=== PATIENT | male | born 1975 | race Caucasian/White ===

== ENCOUNTER → 2016-10-10 | Outpatient (CLI) | payer OTHER ==
[~2016-10-10] MED LIST: /ONDA4TA OR; /TAMS4CA OR; COLA100C PO; CONRAY-43 43% 50ML VIAL (Q9960) As Ordered ONE; FISH1000 OR; FISH500C PO; GABA-283 PO; GINKGO BILOBA OR; HYDR25TAB PO; IBUP800T OR; KETO-28 OR; MELA1CAP2 PO; MOBI15TA PO; MULTIVIT PO; OMEP40CA2 PO; PERC5TAB8 OR; SUMA100T2 PO; ZOLO100T PO; [UNRECOGNIZED DRUG - OTHER] TOP
--- NOTE | 2016-10-10 10:09 | REP ---
MR ARTHROGRAM LEFT HIP: TECHNIQUE: Coronal T1, STIR through the pelvis, post arthrogram axial T1 fat sat, T2 fat sat, coronal T1 fat sat, T2 fat sat, sagittal T1 fat sat, axial oblique T1 fat sat left hip. There is no bone marrow edema of the visualized osseous structures and no evidence of occult fracture. There is no evidence of avascular necrosis. Tiny subchondral cyst is seen anteriorly in the left femoral head and also in the left lateral acetabulum. There is mild diffuse chondromalacia at the hip joint. There appears to be diffuse fraying of the superior labrum. I do not see a focal discrete labral tear. There is no paralabral cyst. There is a normal amount of joint fluid. Surrounding soft tissues are unremarkable. Visualized intrapelvic structures are unremarkable. IMPRESSION: Mild arthritic changes left hip joint. There appears to be diffuse fraying of the superior labrum. No other significant finding. Signed by Miguel Angel Young MD 10/10/2016 01:24 P
--- NOTE | 2016-10-10 13:26 | REP ---
Left hip arthrogram The procedure was performed under the direction supervision of Dr. Young. The benefits and risks including but not limited to pain, infection, bleeding and anaphylaxis were explained to the patient and informed consent was obtained. The left femoral neck was localized using fluoroscopic guidance. Skin was prepped and draped in a sterile fashion. 1% lidocaine was used as a local anesthetic. Using fluoroscopic guidance a 22 gauge spinal needle was inserted and advanced to the femoral neck. 0.5 ml of Conray 43 was injected to verify placement. 11 ml of a solution containing 20 ml of sterile saline and 0.15 ml of ProHance was injected into the joint. The needle was removed and the patient was taken to MRI for postprocedural imaging. The the patient tolerated the procedure well and there were no immediate complications. 2 seconds of fluoro time was utilized for this procedure. Reviewed by HILDA Cerrato 10/10/2016 08:49 ASigned by Miguel Angel Young MD 10/10/2016 01:15 P
== END ==
LOC: M RADPRO 07:01
PROVIDERS: ATTEND Physician Assistant
DX: M25.552 Pain in left hip (principal); M76.892 Other specified enthesopathies of left lower limb, excluding foot; M16.12 Unilateral primary osteoarthritis, left hip
CPT/HCPCS: 27093; 73723; 77002; A9576; Q9960

== ENCOUNTER → 2017-04-08 | Outpatient (CLI) | payer OTHER ==
[~2017-04-08] MED LIST changes: -COLA100C PO; +COLA100C5 PO; -CONRAY-43 43% 50ML VIAL (Q9960) As Ordered ONE
--- NOTE | 2017-04-09 00:22 | ECWPNPC ---
PATIENT NAME: ABRAM NG : 1975 GENDER: MALE VISIT DATE: 04/08/2017 DISCHARGE DATE: 04/08/17 1504 VISIT LOCKED DATE TIME: PHYSICIAN: FÉLIX JOHNS RESOURCE: FÉLIX JOHNS REASON FOR APPOINTMENT 1. CHRONIC PAIN- RECONSULT HISTORY OF PRESENT ILLNESS HISTORY OF PRESENT ILLNESS: 41 Y/O [employer] KNOWN TO OUR PRACTICE RETURNS WITH COMPLAINTS OF LBP R>L AND RIGHT POSTERIOR THIGH PAIN.HAD RIGHT L5/S1 TRANSFORAMINAL STEROID INJECTION ON 09-26-15.IN DECEMBER 2015 HAD L5/S1 DISCECTOMY WITH .REPORTS SOME IMPROVEMENT IN RIGHT FOOT THROBBING PAIN.RIGHT LOW BACK PAIN DIDNT CHANGE POST SURGERY.HAVING SAME RIGHT LOW BACK PAIN BEFORE SURGERY AND HAVING MORE FREQUENT EPISODES OF RIGHT LEG TINGLING.RATING PAIN VAS 4/10. PAIN THE PATIENT DESCRIBES THE PAIN... FALL RISK SCREENING: SCREENING :NO FALLS IN THE PAST YEAR CURRENT MEDICATIONS TAKING LOTREL 10-40 MG CAPSULE 1 CAPSULE ORALLY ONCE A DAY TAKING SUMATRIPTAN SUCCINATE 100 MG TABLET 1 TABLET NEEDED ONE TIME ORALLY ONCE A DAY TAKING TYLENOL 325 MG TABLET 1 TABLET NEEDED ORALLY EVERY 6 HRS PRN TAKING MULTI VITAMIN MENS TABLET DIRECTED ORALLY DAILY TAKING PROZAC 40 MG CAPSULE 1 CAPSULE IN THE MORNING ORALLY ONCE A DAY TAKING PRILOSEC 20 MG CAPSULE DELAYED RELEASE 1 CAPSULE ORALLY TWICE A DAY TAKING CETIRIZINE HCL 10 MG TABLET 1 TABLET ORALLY ONCE A DAY TAKING CHLORTHALIDONE 25 MG TABLET ONE HALF TABLET IN THE MORNING ORALLY ONCE A DAY TAKING TRAZODONE HCL 50 MG TABLET 1 TABLET AT BEDTIME NEEDED ORALLY ONCE A DAY TAKING LIPITOR 20 MG TABLET 1 TABLET ORALLY ONCE A DAY NOT-TAKING MOTRIN IB 200 MG TABLET 1 TABLET NEEDED ORALLY EVERY 6 HRS PRN NOT-TAKING DIURIL 12.5 TABLET 1 TABLET ORALLY ONCE A DAY NOT-TAKING COLACE 150 CAPSULE 1 CAP(S) ORALLY ONCE A DAY NOT-TAKING OMEPRAZOLE 40 MG CAPSULE DELAYED RELEASE 1 CAPSULE ORALLY ONCE A DAY NOT-TAKING GINKGO ? TABLET DIRECTED ORALLY NOT-TAKING GABAPENTIN 100 MG CAPSULE 2 CAP(S) ORALLY THREE TIMES DAILY MEDICATION LIST REVIEWED AND RECONCILED WITH THE PATIENT PAST MEDICAL HISTORY BACK PAIN KIDNEY STONES ACID REFLUX HYPERTENSION PTSD AND ANXIETY SEASONAL ALLERGIES HIGH CHOLESTEROL SLEEP APNEA WEARS CPAP MIGRAINES ALLERGIES N.K.D.A. SURGICAL HISTORY PRK CYSTOSCOPY, L URETEROSCOPY, LASER LITHOTRIPSY, STONE BASKETING 01/2012 RIGHT ESWL 01/26/14 MICRODISCECTOMY L5-S1 12/2015 REPAIR OF TORN LABRIUM RIGHT SHOULDER 04/2016 FAMILY HISTORY FATHER: MOTHER: ALIVE, HEART ATTACK, HTN, DIAGNOSED WITH DIABETES, HYPERTENSION, HEART DISEASE 1 SISTER(S) - HEALTHY. 1 SON(S) , 1 DAUGHTER(S) - HEALTHY. NO FAMILY HX OF BLADDER, KIDNEY OR PROSTATE CA. SOCIAL HISTORY GENERAL: TOBACCO USE ARE YOU A:NEVER SMOKER RECREATIONAL DRUG USE DENIES. CAFFEINE 1-2/DAY. 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 MARITAL STATUS: MARRIEDX 2CHILDREN. MORAVIAN [id number] MORMON LANGUAGE LANGUAGES SPOKEN:IRANIAN LEARNING BARRIERS / SPECIAL NEEDS BARRIERS TO LEARNING?NO HEARING IMPAIRED?NO VISION IMPAIRED?YES :CORRECTIVE LENSES COGNITIVELY IMPAIRED?NO READINESS TO LEARN?YES LEARNING PREFERENCES?NO LEARNING CAPABILITIES PRESENT?YES EMOTIONAL BARRIERS?NO SPECIAL DEVICES?NO ACUPUNCTURIST NEEDED?NO PAIN CLINIC PFS, CLERGY, PUBLIC HEALTH REFERRALS PFS REFERRAL NEEDED?NO CLERGY REFERRAL NEEDED?NO PUBLIC HEALTH REFERRAL NEEDED?NO HAS THE PATIENT BEEN EDUCATED REGARDING HIS/HER PLAN OF CARE?YES HAS THE PATIENT BEEN EDUCATED REGARDING PAIN, THE RISK FOR PAIN, THE IMPORTANCE OF EFFECTIVE PAIN MANAGEMENT, AND THE PAIN ASSESSMENT PROCESS?YES ADVANCE DIRECTIVES HEALTH CARE PROXY?NO WOULD YOU LIKE MORE INFORMATION?NO DO YOU HAVE A DNR?NO WOULD YOU LIKE MORE INFORMATION?NO LIVING WILL?NO WOULD YOU LIKE MORE INFORMATION?NO POWER OF SHOVEL LOADER OPERATOR?NO WOULD YOU LIKE MORE INFORMATION?NO HOSPITALIZATION/MAJOR DIAGNOSTIC PROCEDURE SURGERY RELATED REVIEW OF SYSTEMS REVIEWED BY: PROVIDER: FÉLIX ESTRADA . CONSTITUTIONAL: ANY CHANGE IN YOUR MEDICAL CONDITION? NO . CHILLS NO . FEVER NO . INFECTION: DO YOU HAVE NEW INFECTIONS? NO . DO YOU HAVE HISTORY OF MRSA? NO . MUSCULOSKELETAL: ANY NEW PATTERNS OF PAIN OR NUMBNESS? YES, INCREASED PAIN IN RIGHT LOW BACK AND TINGLING IN RIGHT POSTERIOR LEG AND FOOT . GASTROENTEROLOGY: ANY NEW CHANGE IN BOWEL CONTROL? NO . GENITOURINARY: ANY NEW CHANGE IN BLADDER CONTROL? NO . IS THERE A CHANCE YOU COULD BE ? NO . HEMATOLOGY/LYMPH: DO YOU TAKE ANY BLOOD THINNERS? (FOR EXAMPLE- COUMADIN, PLAVIX, AGGRENOX, PLATEL, PRADAXA, OR XARELTO) NO . WHEN WAS YOUR LAST DOSE? DATE: TIME: . NEUROLOGY: HAVE YOU FALLEN IN THE PAST 6 MONTHS? NO . ANY NEW EXTREMITY NUMBNESS OR WEAKNESS? NO . CARDIOLOGY: DO YOU HAVE A PACEMAKER OR DEFIBRILLATOR? NO . RESPIRATORY: HAVE YOU BEEN SICK IN THE PAST WEEK? NO . FEVER NO . FLU LIKE SYMPTOMS? NO . COUGH NO . INTEGUMENTARY: DO YOU HAVE ANY RASHES OR OPEN SORES? NO . ALLERGIC/IMMUNO: ARE YOU ALLERGIC TO SHELLFISH OR IV DYE? NO . ANY NEW ALLERGIES? NO . PSYCHIATRIC: DO YOU HAVE THOUGHTS OF HURTING YOURSELF OR SOMEONE ELSE? NO . ARE YOU ABUSED, NEGLECTED, OR IN AN UNSAFE ENVIRONMENT? NO . ENDOCRINOLOGY: ARE YOU DIABETIC? NO . OTHER: DO YOU NEED ANY PRESCRIPTIONS? NO . IF YES, PLEASE LIST: ____ . ANY NEW PROBLEMS WITH YOUR MEDICATIONS? NO . WHEN DID YOU LAST EAT? ____ . WHEN DID YOU LAST DRINK? ____ . WHAT DID YOU LAST DRINK? ____ . NAME OF PERSON DRIVING YOU HOME? ____ . DO YOU HAVE ANY OTHER QUESTIONS OR CONCERNS NO . VITAL SIGNS WT 192 LBS, HT 5'7", BMI 30.07 INDEX, BP 131/79 MM HG, HR 91 /MIN, RR 18 /MIN, TEMP 97.2 F, OXYGEN SAT % 96%, NA INITIALS SC 13:43, REVIEWED BY: OLIVER. EXAMINATION GENERAL EXAMINATION: GENERAL APPEARANCE:COMFORTABLE/PLEASANT. PSYCHAFFECT NORMAL. LUNGS:LUNG SOUNDS ARE CLEAR. HEART:HEART RATE REGULAR. MUSCULOSKELETAL:ELICITED WITH PALPATION OVER LUMBAR PARAVERTEBRAL MUSCLES RIGHT LOW BACK., MUSCLE STRENGTH TESTING 5/5 BLE. MRI L/S SPINE WITH AND WITHOUT [id number]-REVIEWED. ASSESSMENTS MYALGIA - M79.1 (PRIMARY) RIGHT HIP PAIN - M25.551 NEUROPATHY - G62.9 TREATMENT MYALGIA NOTES: RIGHT LOW BACK TPIPT 2X WK X 6 WK -MYOFASCIAL RELEASE. PREVENTIVE MEDICINE PT. EDUCATED ON POINT INJECTIONS. PROCEDURE CODES FA211 ESTABILISHED PATIENT [facility] FACILITY CHARGE DISPOSITION & COMMUNICATION FOLLOW UP 2WK POST (REASON: RIGHT LOW BACK TPI) ELECTRONICALLY SIGNED BY NATALIE HARVEY ON 04/08/2017 AT 04:19 PM EDT DISCLAIMER : THIS IS A VISIT SUMMARY EXTRACTED FROM THE [employer] CHART. IT IS NOT A COPY OF THE [facility] [employer] PROGRESS NOTE. VIOLETTE
== END ==
LOC: M PAIN 13:30
PROVIDERS: ATTEND Nurse Practitioner Family
DX: M79.1 Myalgia (principal); M25.551 Pain in right hip; G62.9 Polyneuropathy, unspecified; Z79.899 Other long term (current) drug therapy

== ENCOUNTER → 2017-04-30 | Outpatient (CLI) | payer OTHER ==
[~2017-04-30] MED LIST changes: +BUPIVACAINE HCL 0.25% 10 ML VIAL As Ordered ONE; +BUPIVACAINE HCL 0.25% 30 ML VIAL As Ordered ONE; +TRIAMCINOLONE ACETONIDE SUSP 40 MG/ML VIAL (J3301) As Ordered ONE
--- NOTE | 2017-05-12 00:15 | ECWPNPC ---
PATIENT NAME: ABRAM NG : 1975 GENDER: MALE VISIT DATE: 04/30/2017 DISCHARGE DATE: 04/30/17 1453 VISIT LOCKED DATE TIME: PHYSICIAN: KORIN WEBER RESOURCE: KORIN WEBER REASON FOR APPOINTMENT 1. RIGHT LOW BACK TPI HISTORY OF PRESENT ILLNESS HISTORY OF PRESENT ILLNESS: PAIN THE PATIENT DESCRIBES THE PAIN... FALL RISK SCREENING: SCREENING :NO FALLS IN THE PAST YEAR CURRENT MEDICATIONS TAKING LOTREL 10-40 MG CAPSULE 1 CAPSULE ORALLY ONCE A DAY, NOTES: 04-30-17 08 TAKING SUMATRIPTAN SUCCINATE 100 MG TABLET 1 TABLET NEEDED ONE TIME ORALLY ONCE A DAY, NOTES: NONE TAKING TYLENOL 325 MG TABLET 1 TABLET NEEDED ORALLY EVERY 6 HRS PRN, NOTES: NONE TAKING MULTI VITAMIN MENS TABLET DIRECTED ORALLY DAILY, NOTES: 04-30-17 0800 TAKING PROZAC 40 MG CAPSULE 1 CAPSULE IN THE MORNING ORALLY ONCE A DAY, NOTES: 04-30-17 08 TAKING PRILOSEC 20 MG CAPSULE DELAYED RELEASE 1 CAPSULE ORALLY TWICE A DAY, NOTES: 799 TAKING CETIRIZINE HCL 10 MG TABLET 1 TABLET ORALLY ONCE A DAY, NOTES: 04-30-17 08 TAKING CHLORTHALIDONE 25 MG TABLET ONE HALF TABLET IN THE MORNING ORALLY ONCE A DAY, NOTES: 04-30-17 08 TAKING TRAZODONE HCL 50 MG TABLET 1 TABLET AT BEDTIME NEEDED ORALLY ONCE A DAY, NOTES: 04-29-17 2100 TAKING LIPITOR 20 MG TABLET 1 TABLET ORALLY ONCE A DAY, NOTES: 04-30-17 0800 NOT-TAKING MOTRIN IB 200 MG TABLET 1 TABLET NEEDED ORALLY EVERY 6 HRS PRN NOT-TAKING DIURIL 12.5 TABLET 1 TABLET ORALLY ONCE A DAY NOT-TAKING COLACE 150 CAPSULE 1 CAP(S) ORALLY ONCE A DAY NOT-TAKING OMEPRAZOLE 40 MG CAPSULE DELAYED RELEASE 1 CAPSULE ORALLY ONCE A DAY NOT-TAKING GINKGO ? TABLET DIRECTED ORALLY NOT-TAKING GABAPENTIN 100 MG CAPSULE 2 CAP(S) ORALLY THREE TIMES DAILY MEDICATION LIST REVIEWED AND RECONCILED WITH THE PATIENT PAST MEDICAL HISTORY BACK PAIN KIDNEY STONES ACID REFLUX HYPERTENSION PTSD AND ANXIETY SEASONAL ALLERGIES HIGH CHOLESTEROL SLEEP APNEA WEARS CPAP MIGRAINES ALLERGIES N.K.D.A. SOCIAL HISTORY GENERAL: TOBACCO USE ARE YOU A:: NEVER SMOKER . RECREATIONAL DRUG USE DENIES. CAFFEINE 1-2/DAY. 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 MARITAL STATUS: MARRIEDX 2CHILDREN. RESTORATION [id number] EPISCOPAL LANGUAGE LANGUAGES SPOKEN:YORUBA LEARNING BARRIERS / SPECIAL NEEDS BARRIERS TO LEARNING?NO HEARING IMPAIRED?NO VISION IMPAIRED?YES :CORRECTIVE LENSES COGNITIVELY IMPAIRED?NO READINESS TO LEARN?YES LEARNING PREFERENCES?NO LEARNING CAPABILITIES PRESENT?YES EMOTIONAL BARRIERS?NO SPECIAL DEVICES?NO PAINT LINE PRODUCTION SUPERVISOR NEEDED?NO PAIN CLINIC PFS, CLERGY, PUBLIC HEALTH REFERRALS PFS REFERRAL NEEDED?NO CLERGY REFERRAL NEEDED?NO PUBLIC HEALTH REFERRAL NEEDED?NO HAS THE PATIENT BEEN EDUCATED REGARDING HIS/HER PLAN OF CARE?YES HAS THE PATIENT BEEN EDUCATED REGARDING PAIN, THE RISK FOR PAIN, THE IMPORTANCE OF EFFECTIVE PAIN MANAGEMENT, AND THE PAIN ASSESSMENT PROCESS?YES ADVANCE DIRECTIVES HEALTH CARE PROXY?NO WOULD YOU LIKE MORE INFORMATION?NO DO YOU HAVE A DNR?NO WOULD YOU LIKE MORE INFORMATION?NO LIVING WILL?NO WOULD YOU LIKE MORE INFORMATION?NO POWER OF FREELANCE DESIGNER?NO WOULD YOU LIKE MORE INFORMATION?NO REVIEW OF SYSTEMS REVIEWED BY: PROVIDER: . CONSTITUTIONAL: ANY CHANGE IN YOUR MEDICAL CONDITION? NO . CHILLS NO . FEVER NO . INFECTION: DO YOU HAVE NEW INFECTIONS? NO . DO YOU HAVE HISTORY OF MRSA? NO . MUSCULOSKELETAL: ANY NEW PATTERNS OF PAIN OR NUMBNESS? YES, TINGLING IN RIGHT FOOT IS MORE PRONOUNCED . GASTROENTEROLOGY: ANY NEW CHANGE IN BOWEL CONTROL? NO . GENITOURINARY: ANY NEW CHANGE IN BLADDER CONTROL? NO . IS THERE A CHANCE YOU COULD BE ? NO . HEMATOLOGY/LYMPH: DO YOU TAKE ANY BLOOD THINNERS? (FOR EXAMPLE- COUMADIN, PLAVIX, AGGRENOX, PLATEL, PRADAXA, OR XARELTO) NO . WHEN WAS YOUR LAST DOSE? DATE: TIME: . NEUROLOGY: HAVE YOU FALLEN IN THE PAST 6 MONTHS? NO . ANY NEW EXTREMITY NUMBNESS OR WEAKNESS? NO . CARDIOLOGY: DO YOU HAVE A PACEMAKER OR DEFIBRILLATOR? NO . RESPIRATORY: HAVE YOU BEEN SICK IN THE PAST WEEK? NO . FEVER NO . FLU LIKE SYMPTOMS? NO . COUGH NO . INTEGUMENTARY: DO YOU HAVE ANY RASHES OR OPEN SORES? NO . ALLERGIC/IMMUNO: ARE YOU ALLERGIC TO SHELLFISH OR IV DYE? NO . ANY NEW ALLERGIES? NO . PSYCHIATRIC: DO YOU HAVE THOUGHTS OF HURTING YOURSELF OR SOMEONE ELSE? NO . ARE YOU ABUSED, NEGLECTED, OR IN AN UNSAFE ENVIRONMENT? NO . ENDOCRINOLOGY: ARE YOU DIABETIC? NO . OTHER: DO YOU NEED ANY PRESCRIPTIONS? NO . IF YES, PLEASE LIST: ____ . ANY NEW PROBLEMS WITH YOUR MEDICATIONS? NO . WHEN DID YOU LAST EAT? 04-30-17 0900 . WHEN DID YOU LAST DRINK? 04-30-17 1100 . WHAT DID YOU LAST DRINK? WATER . NAME OF PERSON DRIVING YOU HOME? JEN . DO YOU HAVE ANY OTHER QUESTIONS OR CONCERNS NO . VITAL SIGNS WT 191 LBS, HT 5'7", BMI 29.91 INDEX, BP 121/76 MM HG, HR 82 /MIN, RR 18 /MIN, TEMP 97.1 F, OXYGEN SAT % 96%, NA INITIALS SC 13:56, REVIEWED BY: CM. ASSESSMENTS MYALGIA - M79.1 (PRIMARY) PROCEDURES PN TRIGGER POINT INJECTION WITH STEROIDS PRE PROCEDURE DIAGNOSIS 1. MYALGIA 2. PAIN AT RIGHT LOWER BACK AREA POST PROCEDURE DIAGNOSIS 1. MYALGIA 2. PAIN AT RIGHT LOWER BACK AREA PROCEDURE TRIGGER POINT INJECTION AT RIGHT LOWER BACK AREA SURGEON DR. KORIN WEBER SENIOR RELIABILITY ENGINEER NONE ANESTHESIA LOCAL PRE PROCEDURE NOTE THE PATIENT HAS A HISTORY OF CHRONIC PAIN AT THE RIGHT LOWER BACK AREA. I EVALUATE THE PATIENT AND REVIEWED THE CHART. THERE IS EVIDENCE OF BANDS OF TISSUE WITH RESTRICTION OF MOVEMENT AND PRESENCE OF TRIGGER POINT AT THE AFFECTED AREA. I WENT OVER THE RISKS, ALTERNATIVES, AND BENEFITS ASSOCIATED WITH THIS PROCEDURE. THE PATIENT WOULD LIKE TO PROCEED AND GIVE CONSENT TO PERFORMED THE PROCEDURE. THE PATIENT DENIES UNEXPLAINABLE WEIGHT LOSS, FEVER, CHILLS, OR NEW CHANGES IN URINARY OR BOWEL CONTROL DESCRIPTION OF PROCEDURE THE PATIENT WAS BROUGHT TO THE PROCEDURE ROOM AND PLACED IN THE SITTING POSITION. THE AREA WAS CLEANED WITH ALCOHOL. THE PROCEDURE WAS DONE USING ASEPTIC STERILE TECHNIQUE. I CHECKED LATERALITY AND THE LEVEL WHERE THE PROCEDURE WAS GOING TO BE PERFORMED WITH THE PATIENT AND THE SUPPORTING STAFF AT THE MOMENT OF THE TIME OUT IN THE PROCEDURE ROOM. USING A 25-GAUGE NEEDLE, TRIGGER POINTS WERE INJECTED AT THE RIGHT LOWER BACK AREA WITH A TOTAL OF 40 ML OF BUPIVACAINE 0.25% AND KENALOG 40 MG. THERE WAS NO EVIDENCE OF BLOOD, PARESTHESIA OR CEREBROSPINAL FLUID DURING THE PROCEDURE. THE PATIENT WAS SENT TO THE RECOVERY ROOM. THE PATIENT WAS MOVING THE EXTREMITIES AND DOING WELL. THERE WAS NO COMPLICATION DURING THE PROCEDURE POST PROCEDURE NOTE THE PATIENT WILL BE SEEN IN A FOLLOW UP IN THE NEXT FEW WEEKS. INSTRUCTIONS WERE GIVEN, QUESTIONS WERE ANSWERED, AND THE PATIENT EXPRESSED UNDERSTANDING AND AGREES WITH THE PLAN. I, DENNY BELTRAN, DOCUMENTED THE ABOVE INFORMATION ACTING A SCRIBE FOR DR. WEBER. I HAVE REVIEWED THE ABOVE DOCUMENT, WRITTEN BY DENNY DOMINIQUE AND I VERIFY THAT IT IS ACCURATE PROCEDURE CODES 47697 INJ TRIGGER POINT / MUSC DISPOSITION & COMMUNICATION FOLLOW UP 3 WEEKS ELECTRONICALLY SIGNED BY KORIN WEBER MD ON 05/11/2017 AT 10:43 AM EDT DISCLAIMER : THIS IS A VISIT SUMMARY EXTRACTED FROM THE [employer] CHART. IT IS NOT A COPY OF THE [employer] PROGRESS NOTE. VIOLETTE
== END ==
LOC: M PAIN 13:45
PROVIDERS: ATTEND Anesthesiology
DX: G89.29 Other chronic pain (principal); M54.5 Low back pain; M79.1 Myalgia; K21.9 Gastro-esophageal reflux disease without esophagitis; I10 Essential (primary) hypertension; F43.10 Post-traumatic stress disorder, unspecified; F41.9 Anxiety disorder, unspecified; J30.2 Other seasonal allergic rhinitis; G47.30 Sleep apnea, unspecified; G43.909 Migraine, unspecified, not intractable, without status migrainosus; Z79.899 Other long term (current) drug therapy
CPT/HCPCS: 20552; J3301

== ENCOUNTER → 2017-06-09 | Outpatient (CLI) | payer OTHER ==
--- NOTE | 2017-06-16 01:13 | ECWPNPC ---
PATIENT NAME: ABRAM NG : 1975 GENDER: MALE VISIT DATE: 06/09/2017 DISCHARGE DATE: 06/09/17 1513 VISIT LOCKED DATE TIME: PHYSICIAN: KORIN WEBER RESOURCE: KORIN WEBER HISTORY OF PRESENT ILLNESS HISTORY OF PRESENT ILLNESS: PAIN THE PATIENT DESCRIBES THE PAIN... FALL RISK SCREENING: SCREENING :NO FALLS IN THE PAST YEAR CURRENT MEDICATIONS TAKING LOTREL 10-40 MG CAPSULE 1 CAPSULE ORALLY ONCE A DAY, NOTES: 06/09/17 0600 TAKING SUMATRIPTAN SUCCINATE 100 MG TABLET 1 TABLET NEEDED ONE TIME ORALLY ONCE A DAY, NOTES: 1 WEEK AGO TAKING TYLENOL 325 MG TABLET 1 TABLET NEEDED ORALLY EVERY 6 HRS PRN, NOTES: 1 WEEK AGO TAKING MULTI VITAMIN MENS TABLET DIRECTED ORALLY DAILY, NOTES: 06/09/17 06 TAKING PROZAC 40 MG CAPSULE 1 CAPSULE IN THE MORNING ORALLY ONCE A DAY, NOTES: 06/09/17 06 TAKING PRILOSEC 20 MG CAPSULE DELAYED RELEASE 1 CAPSULE ORALLY TWICE A DAY, NOTES: 06/09/17 06 TAKING CETIRIZINE HCL 10 MG TABLET 1 TABLET ORALLY ONCE A DAY, NOTES: 06/09/17 06 TAKING CHLORTHALIDONE 25 MG TABLET ONE HALF TABLET IN THE MORNING ORALLY ONCE A DAY, NOTES: 06/09/17 06 TAKING TRAZODONE HCL 50 MG TABLET 1 TABLET AT BEDTIME NEEDED ORALLY ONCE A DAY, NOTES: 06/08/17 9PM TAKING LIPITOR 20 MG TABLET 1 TABLET ORALLY ONCE A DAY, NOTES: 06/09/17 0600 NOT-TAKING MOTRIN IB 200 MG TABLET 1 TABLET NEEDED ORALLY EVERY 6 HRS PRN NOT-TAKING DIURIL 12.5 TABLET 1 TABLET ORALLY ONCE A DAY NOT-TAKING COLACE 150 CAPSULE 1 CAP(S) ORALLY ONCE A DAY NOT-TAKING OMEPRAZOLE 40 MG CAPSULE DELAYED RELEASE 1 CAPSULE ORALLY ONCE A DAY NOT-TAKING GINKGO ? TABLET DIRECTED ORALLY NOT-TAKING GABAPENTIN 100 MG CAPSULE 2 CAP(S) ORALLY THREE TIMES DAILY MEDICATION LIST REVIEWED AND RECONCILED WITH THE PATIENT PAST MEDICAL HISTORY BACK PAIN KIDNEY STONES ACID REFLUX HYPERTENSION PTSD AND ANXIETY SEASONAL ALLERGIES HIGH CHOLESTEROL SLEEP APNEA WEARS CPAP MIGRAINES ALLERGIES NO[ALLERGIES VERIFIED] SURGICAL HISTORY PRK CYSTOSCOPY, L URETEROSCOPY, LASER LITHOTRIPSY, STONE BASKETING 01/2012 RIGHT ESWL 01/26/14 MICRODISCECTOMY L5-S1 12/2015 REPAIR OF TORN LABRIUM RIGHT SHOULDER 04/2016 SOCIAL HISTORY GENERAL: TOBACCO USE ARE YOU A:: NEVER SMOKER . RECREATIONAL DRUG USE DENIES. CAFFEINE 1-2/DAY. 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 MARITAL STATUS: MARRIEDX 2CHILDREN. RASTAFARI [id number] YARSANI LANGUAGE LANGUAGES SPOKEN:PUERTO RICAN LEARNING BARRIERS / SPECIAL NEEDS CHANGE FROM LAST VISIT?NO BARRIERS TO LEARNING?NO HEARING IMPAIRED?NO VISION IMPAIRED?YES :CORRECTIVE LENSES COGNITIVELY IMPAIRED?NO READINESS TO LEARN?YES LEARNING PREFERENCES?NO LEARNING CAPABILITIES PRESENT?YES EMOTIONAL BARRIERS?NO SPECIAL DEVICES?NO CLIN APPLICATION SPECIALIST NEEDED?NO PAIN CLINIC PFS, CLERGY, PUBLIC HEALTH REFERRALS PFS REFERRAL NEEDED?NO CLERGY REFERRAL NEEDED?NO PUBLIC HEALTH REFERRAL NEEDED?NO HAS THE PATIENT BEEN EDUCATED REGARDING HIS/HER PLAN OF CARE?YES HAS THE PATIENT BEEN EDUCATED REGARDING PAIN, THE RISK FOR PAIN, THE IMPORTANCE OF EFFECTIVE PAIN MANAGEMENT, AND THE PAIN ASSESSMENT PROCESS?YES ADVANCE DIRECTIVES HEALTH CARE PROXY?NO WOULD YOU LIKE MORE INFORMATION?NO DO YOU HAVE A DNR?NO WOULD YOU LIKE MORE INFORMATION?NO LIVING WILL?NO WOULD YOU LIKE MORE INFORMATION?NO POWER OF DEALMAKER?NO WOULD YOU LIKE MORE INFORMATION?NO HOSPITALIZATION/MAJOR DIAGNOSTIC PROCEDURE SURGERY RELATED REVIEW OF SYSTEMS REVIEWED BY: PROVIDER: . CONSTITUTIONAL: ANY CHANGE IN YOUR MEDICAL CONDITION? NO . CHILLS NO . FEVER NO . INFECTION: DO YOU HAVE NEW INFECTIONS? NO . DO YOU HAVE HISTORY OF MRSA? NO . MUSCULOSKELETAL: ANY NEW PATTERNS OF PAIN OR NUMBNESS? NO . GASTROENTEROLOGY: ANY NEW CHANGE IN BOWEL CONTROL? NO . GENITOURINARY: ANY NEW CHANGE IN BLADDER CONTROL? NO . IS THERE A CHANCE YOU COULD BE ? NO . HEMATOLOGY/LYMPH: DO YOU TAKE ANY BLOOD THINNERS? (FOR EXAMPLE- COUMADIN, PLAVIX, AGGRENOX, PLATEL, PRADAXA, OR XARELTO) NO . WHEN WAS YOUR LAST DOSE? DATE: TIME: . NEUROLOGY: HAVE YOU FALLEN IN THE PAST 6 MONTHS? NO . ANY NEW EXTREMITY NUMBNESS OR WEAKNESS? NO . CARDIOLOGY: DO YOU HAVE A PACEMAKER OR DEFIBRILLATOR? NO . RESPIRATORY: HAVE YOU BEEN SICK IN THE PAST WEEK? NO . FEVER NO . FLU LIKE SYMPTOMS? NO . COUGH NO . INTEGUMENTARY: DO YOU HAVE ANY RASHES OR OPEN SORES? NO . ALLERGIC/IMMUNO: ARE YOU ALLERGIC TO SHELLFISH OR IV DYE? NO . ANY NEW ALLERGIES? NO . PSYCHIATRIC: DO YOU HAVE THOUGHTS OF HURTING YOURSELF OR SOMEONE ELSE? NO . ARE YOU ABUSED, NEGLECTED, OR IN AN UNSAFE ENVIRONMENT? NO . ENDOCRINOLOGY: ARE YOU DIABETIC? NO . OTHER: DO YOU NEED ANY PRESCRIPTIONS? NO . IF YES, PLEASE LIST: ____ . ANY NEW PROBLEMS WITH YOUR MEDICATIONS? NO . WHEN DID YOU LAST EAT? 530AM . WHEN DID YOU LAST DRINK? 1000 AM . WHAT DID YOU LAST DRINK? WATER . NAME OF PERSON DRIVING YOU HOME? JEN . DO YOU HAVE ANY OTHER QUESTIONS OR CONCERNS NO . VITAL SIGNS WT 190 LBS, HT 5'7", BMI 29.75 INDEX, BP 129/82 MM HG, HR 85 /MIN, RR 16 /MIN, TEMP 97.8 F, OXYGEN SAT % 96%, NA INITIALS SC 13:42, REVIEWED BY: NL. ASSESSMENTS MYALGIA - M79.1 (PRIMARY) PROCEDURES PN TRIGGER POINT INJECTION WITH STEROIDS PRE PROCEDURE DIAGNOSIS 1. MYALGIA 2. PAIN AT RIGHT LOWER BACK AREA POST PROCEDURE DIAGNOSIS 1. MYALGIA 2. PAIN AT RIGHT LOWER BACK AREA PROCEDURE TRIGGER POINT INJECTION AT RIGHT LOWER BACK AREA SURGEON DR. KORIN WEBER INSULATION TECHNICIAN NONE ANESTHESIA LOCAL PRE PROCEDURE NOTE THE PATIENT HAS A HISTORY OF CHRONIC PAIN AT THE RIGHT LOWER BACK AREA. I EVALUATE THE PATIENT AND REVIEWED THE CHART. THERE IS EVIDENCE OF BANDS OF TISSUE WITH RESTRICTION OF MOVEMENT AND PRESENCE OF TRIGGER POINT AT THE AFFECTED AREA. I WENT OVER THE RISKS, ALTERNATIVES, AND BENEFITS ASSOCIATED WITH THIS PROCEDURE. THE PATIENT WOULD LIKE TO PROCEED AND GIVE CONSENT TO PERFORMED THE PROCEDURE. THE PATIENT DENIES UNEXPLAINABLE WEIGHT LOSS, FEVER, CHILLS, OR NEW CHANGES IN URINARY OR BOWEL CONTROL DESCRIPTION OF PROCEDURE THE PATIENT WAS BROUGHT TO THE PROCEDURE ROOM AND PLACED IN THE SITTING POSITION. THE AREA WAS CLEANED WITH ALCOHOL. THE PROCEDURE WAS DONE USING ASEPTIC STERILE TECHNIQUE. I CHECKED LATERALITY AND THE LEVEL WHERE THE PROCEDURE WAS GOING TO BE PERFORMED WITH THE PATIENT AND THE SUPPORTING STAFF AT THE MOMENT OF THE TIME OUT IN THE PROCEDURE ROOM. USING A 25-GAUGE NEEDLE, TRIGGER POINTS WERE INJECTED AT THE RIGHT LOWER BACK AREA WITH A TOTAL OF 40 ML OF BUPIVACAINE 0.25% AND KENALOG 40 MG. THERE WAS NO EVIDENCE OF BLOOD, PARESTHESIA OR CEREBROSPINAL FLUID DURING THE PROCEDURE. THE PATIENT WAS SENT TO THE RECOVERY ROOM. THE PATIENT WAS MOVING THE EXTREMITIES AND DOING WELL. THERE WAS NO COMPLICATION DURING THE PROCEDURE POST PROCEDURE NOTE THE PATIENT WILL BE SEEN IN A FOLLOW UP IN THE NEXT FEW WEEKS. INSTRUCTIONS WERE GIVEN, QUESTIONS WERE ANSWERED, AND THE PATIENT EXPRESSED UNDERSTANDING AND AGREES WITH THE PLAN. I, DENNY BELTRAN, DOCUMENTED THE ABOVE INFORMATION ACTING A SCRIBE FOR DR. WEBER. I HAVE REVIEWED THE ABOVE DOCUMENT, WRITTEN BY DENNY SINIBNatacha AND I VERIFY THAT IT IS ACCURATE PROCEDURE CODES 40581 INJ TRIGGER POINT / MUSC DISPOSITION & COMMUNICATION FOLLOW UP 3 WEEKS ELECTRONICALLY SIGNED BY KORIN WEBER MD ON 06/15/2017 AT 02:21 PM EST DISCLAIMER : THIS IS A VISIT SUMMARY EXTRACTED FROM THE [employer] CHART. IT IS NOT A COPY OF THE [employer] PROGRESS NOTE. VIOLETTE
== END ==
LOC: M PAIN 13:30
PROVIDERS: ATTEND Anesthesiology
DX: G89.29 Other chronic pain (principal); M54.5 Low back pain; M79.1 Myalgia; K21.9 Gastro-esophageal reflux disease without esophagitis; I10 Essential (primary) hypertension; F43.10 Post-traumatic stress disorder, unspecified; F41.9 Anxiety disorder, unspecified; J30.2 Other seasonal allergic rhinitis; E78.00 Pure hypercholesterolemia, unspecified; G47.30 Sleep apnea, unspecified; G43.909 Migraine, unspecified, not intractable, without status migrainosus; Z79.899 Other long term (current) drug therapy
CPT/HCPCS: 20552; J3301

== ENCOUNTER → 2017-08-26 | Outpatient (CLI) | payer OTHER | LOC: M PAIN 09:15 | DX: M25.551 Pain in right hip (principal); G62.9 Polyneuropathy, unspecified; M79.1 Myalgia; K21.9 Gastro-esophageal reflux disease without esophagitis; I10 Essential (primary) hypertension; F43.10 Post-traumatic stress disorder, unspecified; F41.9 Anxiety disorder, unspecified; J30.2 Other seasonal allergic rhinitis; E78.00 Pure hypercholesterolemia, unspecified; G47.30 Sleep apnea, unspecified; G43.909 Migraine, unspecified, not intractable, without status migrainosus; Z79.899 Other long term (current) drug therapy | CPT/HCPCS: G0463 ==

== ENCOUNTER → 2017-10-09 | Outpatient (CLI) | payer OTHER ==
[~2017-10-09] MED LIST changes: -/ONDA4TA OR; -/TAMS4CA OR; +BUPIVACAINE HCL 0.25% 10 ML VIAL As Ordered; -BUPIVACAINE HCL 0.25% 10 ML VIAL As Ordered ONE; +BUPIVACAINE HCL 0.25% 30 ML VIAL As Ordered; -BUPIVACAINE HCL 0.25% 30 ML VIAL As Ordered ONE; -COLA100C5 PO; -FISH1000 OR; -FISH500C PO; -GABA-283 PO; -GINKGO BILOBA OR; -HYDR25TAB PO; -IBUP800T OR; -KETO-28 OR; -MELA1CAP2 PO; -MOBI15TA PO; -MULTIVIT PO; -OMEP40CA2 PO; -PERC5TAB8 OR; -SUMA100T2 PO; +TRIAMCINOLONE ACETONIDE SUSP 40 MG/ML VIAL (J3301) As Ordered; -TRIAMCINOLONE ACETONIDE SUSP 40 MG/ML VIAL (J3301) As Ordered ONE; -ZOLO100T PO; -[UNRECOGNIZED DRUG - OTHER] TOP
== END ==
LOC: M PAIN 13:15
DX: G89.29 Other chronic pain (principal); M54.5 Low back pain; M79.1 Myalgia; K21.9 Gastro-esophageal reflux disease without esophagitis; I10 Essential (primary) hypertension; F43.10 Post-traumatic stress disorder, unspecified; F41.9 Anxiety disorder, unspecified; J30.2 Other seasonal allergic rhinitis; E78.00 Pure hypercholesterolemia, unspecified; G47.30 Sleep apnea, unspecified; G43.909 Migraine, unspecified, not intractable, without status migrainosus; Z79.899 Other long term (current) drug therapy
CPT/HCPCS: J3301

== ENCOUNTER → 2017-10-29 | Outpatient (CLI) | payer OTHER | LOC: M PAIN 09:45 | DX: G89.29 Other chronic pain (principal); M96.1 Postlaminectomy syndrome, not elsewhere classified; M79.1 Myalgia; M54.17 Radiculopathy, lumbosacral region; K21.9 Gastro-esophageal reflux disease without esophagitis; I10 Essential (primary) hypertension; F43.10 Post-traumatic stress disorder, unspecified; F41.9 Anxiety disorder, unspecified; J30.2 Other seasonal allergic rhinitis; E78.00 Pure hypercholesterolemia, unspecified; G47.30 Sleep apnea, unspecified; G43.909 Migraine, unspecified, not intractable, without status migrainosus; Z79.899 Other long term (current) drug therapy | CPT/HCPCS: G0463 ==

== ENCOUNTER → 2017-11-03 | Outpatient (REF) | payer OTHER ==
[2017-11-03 13:21] LABS: APPEARANCE, URINE CLEAR (CLEAR); BACTERIA, URINE AUTO NEGATIVE (NEGATIVE); BILIRUBIN, URINE AUTO NEGATIVE (NEGATIVE); BLOOD, URINE BLOOD NEGATIVE (NEGATIVE); COLOR, URINE COLORLESS (YELLOW); GLUCOSE, URINE (UA) AUTO NEGATIVE (NEGATIVE); KETONE, URINE AUTO NEGATIVE (NEGATIVE); LEUKOCYTE ESTERASE, URINE AUTO NEGATIVE (NEGATIVE); NITRITE, URINE AUTO NEGATIVE (NEGATIVE); PROTEIN, URINE AUTO NEGATIVE (NEGATIVE); RBC, URINE AUTO 0 /HPF (0-3); SPECIFIC GRAVITY URINE AUTO 1.002 (1.002-1.035); SQUAMOUS EPITHELIAL CELL UR AU 0 /HPF (0-6); UROBILINOGEN, URINE AUTO 0.2 mg/dL (0.0-2.0); WBC, URINE AUTO 0 /HPF (0-3)
== END ==
LOC: M SMT 13:00
DX: N20.0 Calculus of kidney (principal)
CPT/HCPCS: 81001

== ENCOUNTER → 2017-11-10 | Outpatient (CLI) | payer OTHER | LOC: M RAD 07:01 | DX: N20.0 Calculus of kidney (principal) | CPT/HCPCS: 74176 ==

== ENCOUNTER → 2018-01-28 | Outpatient (CLI) | payer OTHER ==
[~2018-01-28] MED LIST changes: -BUPIVACAINE HCL 0.25% 10 ML VIAL As Ordered; +ISOVUE-M 300 61% 15ML VIAL (Q9967) As Ordered; +LIDOCAINE 1% SDV INJ 30 ML VIAL As Ordered; -TRIAMCINOLONE ACETONIDE SUSP 40 MG/ML VIAL (J3301) As Ordered; +dexameTHASONE 10 MG/1 ML VIAL PRES.FREE (J1100) As Ordered; +diazePAM 5 MG TAB As Ordered; +oxyCODONE 5MG TAB As Ordered
== END ==
LOC: M PAIN 13:00
DX: G89.29 Other chronic pain (principal); M51.17 Intervertebral disc disorders with radiculopathy, lumbosacral region; K21.9 Gastro-esophageal reflux disease without esophagitis; I10 Essential (primary) hypertension; F43.10 Post-traumatic stress disorder, unspecified; F41.9 Anxiety disorder, unspecified; J30.2 Other seasonal allergic rhinitis; E78.00 Pure hypercholesterolemia, unspecified; G47.30 Sleep apnea, unspecified; G43.909 Migraine, unspecified, not intractable, without status migrainosus; Z79.899 Other long term (current) drug therapy
CPT/HCPCS: J1100

== ENCOUNTER → 2018-02-23 | Outpatient (CLI) | payer OTHER | LOC: M PAIN 10:15 | DX: M96.1 Postlaminectomy syndrome, not elsewhere classified (principal); M79.1 Myalgia; M54.17 Radiculopathy, lumbosacral region; K21.9 Gastro-esophageal reflux disease without esophagitis; I10 Essential (primary) hypertension; F43.10 Post-traumatic stress disorder, unspecified; F41.9 Anxiety disorder, unspecified; J30.2 Other seasonal allergic rhinitis; E78.00 Pure hypercholesterolemia, unspecified; G47.30 Sleep apnea, unspecified; G43.909 Migraine, unspecified, not intractable, without status migrainosus; Z79.899 Other long term (current) drug therapy | CPT/HCPCS: G0463 ==

== ENCOUNTER 2018-09-29 10:48 | Emergency (ER) | payer OTHER ==
[~2018-09-29] VITALS: Ht 170.2 cm; Wt 86.8 kg
[~2018-09-29 10:48] MED LIST changes: +/ONDA4TA OR; +/TAMS4CA OR; -BUPIVACAINE HCL 0.25% 30 ML VIAL As Ordered; +COLA100C5 PO; +FISH1000 OR; +FISH500C PO; +GABA-845 PO; +GINKGO BILOBA OR; +HYDR25TAB PO; +IBUP800T OR; -ISOVUE-M 300 61% 15ML VIAL (Q9967) As Ordered; +KETO-28 OR; -LIDOCAINE 1% SDV INJ 30 ML VIAL As Ordered; +MELA1CAP2 PO; +MOBI15TA PO; +MULTIVIT PO; +OMEP40CA2 PO; +PERC5TAB8 OR; +SUMA100T2 PO; +ZOLO100T PO; +[UNRECOGNIZED DRUG - OTHER] TOP; -dexameTHASONE 10 MG/1 ML VIAL PRES.FREE (J1100) As Ordered; -diazePAM 5 MG TAB As Ordered; -oxyCODONE 5MG TAB As Ordered
[2018-09-29] MEDS ORDERED: TRAZ-160 (11:21)
[2018-09-29] MEDS ORDERED: FLUO40CA (11:21)
[2018-09-29] MEDS ORDERED: LOTR10CA2 PO (11:21)
[2018-09-29] MEDS ORDERED: CHLO125TA (11:21)
[2018-09-29] MEDS ORDERED: ATOR1TAB21 (11:21)
[2018-09-29] MEDS ORDERED: FAMOTIDINE IV BAG 20 MG in APPROPRIATE DILUENT 1 EA IV ONE (12:30)
[2018-09-29] MEDS ORDERED: methylPREDNISolone INJ 125 MG/2 ML VIAL (J2930) IV ONE (12:30)
[2018-09-29 14:48] VITALS: BP 113/70
== END 2018-09-29 14:50 | disposition home or self-care (01) ==
LOC: M ED 10:48
DX: T78.40XA Allergy, unspecified, initial encounter (principal); Y92.89 Other specified places as the place of occurrence of the external cause; Y93.89 Activity, other specified; I10 Essential (primary) hypertension; Z87.442 Personal history of urinary calculi; Z79.899 Other long term (current) drug therapy
CPT/HCPCS: 99284; J2930

== ENCOUNTER → 2019-01-14 | Outpatient (REF) | payer OTHER ==
[~2019-01-14] MED LIST changes: -/ONDA4TA OR; -/TAMS4CA OR; +ATOR1TAB21; +CHLO125TA; +FLOM0.4C39 OR; +FLUO40CA; +HYDR-2541 PO; -HYDR25TAB PO; +LOTR10CA2 PO; +ONDA-1 OR; +TRAZ-252
[2019-01-14 12:14] LABS: ALT/SGPT 38 U/L (12-78); BILIRUBIN,TOTAL 0.5 MG/DL (0.2-1.0); BLOOD UREA NITROGEN 18 MG/DL (7-18); CALCIUM LEVEL 8.8 MG/DL (8.5-10.1); CARBON DIOXIDE LEVEL 33 MEQ/L (21-32); CHLORIDE LEVEL 101 MEQ/L (98-107); CREATININE FOR GFR 1.27 MG/DL (0.70-1.30); GLOMERULAR FILTRATION RATE > 60.0 (>60); GLUCOSE, FASTING 97 MG/DL (70-100); SODIUM LEVEL 139 MEQ/L (136-145)
== END ==
LOC: M SFHCLERA 09:09
PROVIDERS: ATTEND Nurse Practitioner Family
DX: R94.4 Abnormal results of kidney function studies (principal)

== ENCOUNTER → 2019-01-14 | Outpatient (CLI) | payer OTHER | LOC: M LRY 09:14 | PROVIDERS: ATTEND Allergy & Immunology | DX: Z91.013 Allergy to seafood (principal); R94.4 Abnormal results of kidney function studies ==

== ENCOUNTER → 2020-06-22 | Outpatient (CLI) | payer SELFPAY ==
[~2020-06-22] MED LIST changes: -OMEP40CA2 PO; +OMEP40CA97 PO
== END ==
LOC: M LABSMTC 13:07
PROVIDERS: ATTEND Pediatrics
DX: Z20.828 Contact with and (suspected) exposure to other viral communicable diseases (principal)

== ENCOUNTER → 2020-09-21 | Outpatient (CLI) | payer SELFPAY | LOC: M LABSMTC 12:12 | PROVIDERS: ATTEND Pediatrics | DX: Z11.52 Encounter for screening for COVID-19 (principal) ==

== ENCOUNTER → 2020-11-23 | Outpatient (CLI) | payer OTHER ==
--- NOTE | 2020-11-23 14:04 | REP ---
INDICATION: DISC DEGENERATION. Rule out disc herniation. Status post microdiscectomy L5-S1. COMPARISON: Comparison MRI study of the lumbar spine is from July 30, 2011.. TECHNIQUE: Sagittal and axial T1 and T2-weighted scans are acquired in the usual fashion with and without fat saturation. Sequences include spin echo, turbo spin-echo, and STIR imaging sequences. 15 mL of intravenous ProHance was administered and post gadolinium enhanced imaging or is acquired. FINDINGS: Lumbar vertebral body heights are preserved alignment is normal. Cortical and medullary bone signal intensity are normal. The tip of the conus medullaris is normal in position and appearance at L1. No extra vertebral abnormality is appreciated. Axial and sagittal images at L1-2 show no significant finding. At L2-3, posterior disc margin is intact. There is no evidence of central canal stenosis or foraminal narrowing. At L3-4, the disc is preserved in height and signal intensity. No disc protrusion or central canal stenosis is seen. At L4-5, there is minimal diffuse disc bulging. This subtly indents the ventral margin of the thecal sac but no spinal stenosis is seen. No foraminal narrowing is observed. There is mild facet hypertrophy bilaterally at L4-5. At L5-S1, there is diffuse central disc bulging contacting the ventral margin of the thecal sac. Parasagittal and axial T2 scans demonstrate a tiny focal disc protrusion of the right foraminal segment of the disc. This extends caudally for 2-3 mm. Facet hypertrophy is noted. There is evidence of right-sided laminectomy change at L5-S1. No nerve root displacement is seen. There is some granulation tissue surrounding the right S1 root and along the right lateral margin of the thecal sac at L5-S1. There is mild right-sided neural foraminal narrowing due to disc bulging and facet hypertrophy. Post gadolinium-enhanced images show no significant gadolinium enhancement.. IMPRESSION: Mild diffuse disc bulging at L4-5. Diffuse disc bulging at L5-S1 with suspicion of a tiny caudally extending right foraminal disc protrusion at L5-S1.. Granulation tissue surrounding the right S1 root and along the lateral margin of the thecal sac on the right at L5-S1.. <Electronically signed by Shailesh Ross > 11/23/20 1400
== END ==
LOC: M PLARAD 10:51
PROVIDERS: ATTEND Physician Assistant
DX: M51.36 Other intervertebral disc degeneration, lumbar region (principal)

== ENCOUNTER 2021-04-12 12:45 | Emergency (ER) | payer OTHER ==
[~2021-04-12] VITALS: Ht 170.2 cm; Wt 86.0 kg
[~2021-04-12 12:45] MED LIST changes: +GABA-283 PO; -GABA-845 PO; +OMEP40CA4 PO; -OMEP40CA97 PO
[2021-04-12 13:58] LABS: BASO # 0.1 10^3/uL (0.0-0.2); BASO % 0.7 % (0.0-1.0); EOS # 0.2 10^3/uL (0.0-0.5); HEMATOCRIT 47.3 % (42.0-52.0); HEMOGLOBIN 16.5 g/dl (13.5-17.5); LYMPH # 2.5 10^3/uL (1.5-5.0); LYMPH % 27.9 % (24.0-44.0); MEAN CORPUSCULAR HEMOGLOBIN 31.4 pg (27.0-33.0); MEAN CORPUSCULAR HGB CONC 34.9 g/dl (32.0-36.5); MEAN CORPUSCULAR VOLUME 90.1 fl (80.0-96.0); MONO # 0.7 10^3/uL (0.0-0.8); MONO % 7.7 % (2.0-8.0); NEUTROPHILS # 5.6 10^3/uL (1.5-8.5); NEUTROPHILS % 61.5 % (36.0-66.0); PLATELET COUNT, AUTOMATED 197 10^3/uL (150-450); RED BLOOD COUNT 5.25 10^6/uL (4.30-6.10)
[2021-04-12 14:22] LABS: ALBUMIN 4.2 GM/DL (3.2-5.2); BILIRUBIN,DIRECT 0.2 MG/DL (0.0-0.2); BILIRUBIN,TOTAL 0.6 MG/DL (0.2-1.0); TOTAL PROTEIN 7.6 GM/DL (6.4-8.2)
[2021-04-12] MEDS ORDERED: ISOVUE-370 76% 100ML VIAL As Ordered ONE (15:15)
--- NOTE | 2021-04-12 15:39 | REP ---
INDICATION: abdominal pain. COMPARISON: Multiple latest 11/10/2017 a noncontrast enhanced exam TECHNIQUE: Standard helical technique after the intravenous administration of 100 cc Isovue 370 FINDINGS: The lung bases are clear and unchanged. The liver, gallbladder, spleen, pancreas, adrenal glands, and kidneys are within normal limits. There is a single tiny focal area of decreased density seen in the inferior pole of the right kidney which is too small for precise CT characterization but likely represents a tiny renal cortical cyst. This has developed since the latest prior contrast enhanced examination of 01/02/2016. The abdominal aorta and para-aortic regions are within normal limits. The bowel loops and the mesenteries are within normal limits. There is no evidence of a mass or adenopathy. There is no free fluid or free air. The osseous structures are within normal limits. IMPRESSION: CT findings are within normal limits. <Electronically signed by Jamey Witt > 04/12/21 9760
--- NOTE | 2021-04-12 15:52 | REP ---
INDICATION: abdominal pain / RUQ after eating. FINDINGS: Multiple ultrasonographic images of the liver show the hepatic parenchymal echo texture to appear unremarkable. There are no focal masses. There is no intrahepatic ductal dilatation. The common bile duct measures 3 mm in its greatest transverse dimension. Multiple ultrasonographic images of the gallbladder shows at least 1 echogenic focus within the gallbladder neck region which casts no acoustic shadows. This is somewhat mobile. There is no gallbladder wall thickening or pericholecystic edema. Images of the pancreatic region show no gross abnormality. The imaged portion of the right kidney is unremarkable. IMPRESSION: Sludge ball versus cholelithiasis. Accredited by the [employer] in General Ultrasound. <Electronically signed by Jamey Witt > 04/12/21 6345
[2021-04-12 17:14] VITALS: BP 120/77
== END 2021-04-12 17:14 | disposition home or self-care (01) ==
LOC: M ED 12:45
DX: K82.9 Disease of gallbladder, unspecified (principal); R10.9 Unspecified abdominal pain; K21.9 Gastro-esophageal reflux disease without esophagitis; Z87.442 Personal history of urinary calculi; Z79.899 Other long term (current) drug therapy
CPT/HCPCS: 74177; 76705; 80047; 80076; 83690; 85025; 99284; Q9967

== ENCOUNTER → 2021-05-23 | Outpatient (CLI) | payer OTHER ==
[~2021-05-23] MED LIST changes: +ANDR1.62 TOP; +ATIV1TAB10 PO; -FLUO40CA; +FLUO40CA PO; +METR0.7533 TOP; -TRAZ-252; +TRAZ-252 PO; +VITMTA PO
== END ==
LOC: M LABSMTC 09:26
PROVIDERS: ATTEND Anesthesiology
DX: Z01.818 Encounter for other preprocedural examination (principal); Z11.52 Encounter for screening for COVID-19

== ENCOUNTER 2021-05-28 08:08 | Day surgery (SDC) | payer OTHER ==
[~2021-05-28] VITALS: Ht 170.2 cm; Wt 87.2 kg
[~2021-05-28 08:08] MED LIST changes: +LIDOCAINE 1% MDV 20ML VIAL SQ PRN; +LR 1,000 ML IV ONE
--- OUTSIDE RECORDS SUMMARY | 2021-05-28 08:13 | CCD | Continuity of Care Document ---
Author Author Jonathan BELTRE M.D. Organization Unknown Address [address] [facility], [address] [place] [address] Phone [phone] Care Team Providers Care Cathead Worker Name Role Phone Yen Winkler AUTM [phone] Bonnie Louis N.P. AUTM [phone] Problems Active Problems Provider Date Essential hypertension Toni Beltre M.D. Onset: 6 Social History Type Date Description Comments Sex Unknown ETOH Use 3 A Week Tobacco Use Start: Unknown Patient has never smoked Recreational Drug Use Denies Drug Use Allergies and adverse reactions Description No Known Drug Allergies Medications Active Medications SIG Qnty Indications Ordering Provide r Date Omeprazole 40mg Capsules DR 1 by mouth bid Unknown Lotrel 10-40mg Capsules daily Unknown Prozac 40mg Capsules 1 tab po qd Unknown Lipitor 20mg Tablets 1 tab by mouth every day Unknown Trazodone HCL 50mg Tablets 1 tab by mouth every day Unknown Testosterone Micronized Powder 1 tab by mouth every day Unknown Lorazepam 0.5mg Tablets 1 tab by mouth /sub qd Unknown Motrin Ib 200mg Capsules 2 tab by mouth every 6 hours as needed Unknown Metronidazole 0.75% Cream apply to affected area as needed Unknown Tylenol Cold & Head Severe Congestion 5-325-200mg Tablets as needed Unknown Multi Complete/Iron Tablets 1 tab by mouth every day Unknown Immunizations Description No Information Available Vital Signs Date Vital Result Comment 04/29/2021 2:12pm BP Systolic 116 mmHg BP Diastolic 62 mmHg Body Temperature 98.7 F Height 67 inches 5'7" Weight 192.12 lb BMI (Body Mass Index) 30.1 kg/m2 [place] Body Weight 148 lb Weight 87.148 kg BSA (Body Surface Area) 1.99 m2 10/10/2015 8:37am BP Systolic 116 mmHg BP Diastolic 77 mmHg Height 67 inches 5'7" Weight 197.25 lb W/Uniform/Boots BMI (Body Mass Index) 30.9 kg/m2 [place] Body Weight 148 lb Weight 89.473 kg BSA (Body Surface Area) 2.01 m2 Results Description No Information Available Procedures Description No Information Available Medical Devices Description No Information Available Encounters Description No Information Available Assessments Description No Information Available Plan of Treatment Future Appointment(s):* 06/05/2021 8:30 am - Toni Beltre M.D. at [facility] * 05/28/2021 9:05 am - Toni Beltre M.D. 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 He is much better than he had been with just some stool softeners. At this point he certainly seems to have improved and does not apparently require surgery. I have suggested that he monitor his symptoms and continued with stool softeners and follow up in another month. * Follow up:* Followup one month Functional Status Description No Information Available Mental Status Description No Information Available Referrals Refer to Dr Reason for Referral Status Appt Date Toni Beltre M.D. GALLBLADDER DISEASE Scheduled 04/29 [facility] [address] [place] [address] [phone]
--- OUTSIDE RECORDS SUMMARY | 2021-05-28 08:13 | CCD | Continuity of Care Document ---
Author Author Jonathan BELTRE M.D. Organization Unknown Address [address] [facility], [address] [place] [address] Phone [phone] Care Team Providers Care Revival Clerk Name Role Phone Yen Winkler AUTM Bonnie Louis N.P. AUTM [phone] Problems Active Problems Provider Date Essential hypertension [...] lb BMI (Body Mass Index) 30.1 kg/m2 [place] Body Weight 148 lb Weight 87.148 kg BSA (Body Surface Area) 1.99 m2 10/10/2015 8:37am BP Systolic 116 mmHg BP Diastolic 77 mmHg Height 67 inches 5'7" Weight 197.25 lb W/Uniform/Boots BMI (Body Mass Index) 30.9 kg/m2 [place] Body Weight 148 lb Weight 89.473 kg BSA (Body Surface Area) 2.01 m2 Results Description No Information Available Procedures Description No Information Available Medical Devices Description No Information Available Encounters Description No Information Available Assessments Description No Information Available Plan of Treatment Future Appointment(s):* 06/05/2021 8:30 am - Toni Beltre M.D. at [facility] * 05/28/2021 9:05 am - Toni Beltre M.D. at [facility] 10/10/2015 - Toni Beltre M.D.* K60.1 Chronic [...] Toni Beltre M.D. GALLBLADDER DISEASE Scheduled 04/29 [facility] [address] [place] [phone]
--- OUTSIDE RECORDS SUMMARY | 2021-05-28 08:13 | CCD | Continuity of Care Document ---
Author Author Jonathan MASON P.A. Organization Unknown Address [address] [place] [address] Phone [phone] Care Team Providers Care Compliance Coordinator Name Role Phone Yen Winkler ANALYST BUSINESS ANALYSIS AUTM [phone] Problems Active Problems Provider Date Essential hypertension Guillermo Baum MD Onset: 01/25/2021 Pure hypercholesterolemia Guillermo Baum MD Onset: 021 Social History Type Date Description Comments Sex Unknown ETOH Use Occasionally consumes alcohol Tobacco Use Start: Unknown Denies Smoking Allergies, Adverse Reactions, Alerts Description No Information Available Medications Active Medications SIG Qnty Indications Ordering Provide r Date Fluzone Quadrivalent 0.5ml Unruly Reyna MD Omeprazole 40mg Capsules DR Unknown Fluoxetine HCL 60mg Tablets 1 by mouth every day Unknown Lipitor 20mg Tablets 1 by mouth every day Unknown Trazodone HCL 50mg Tablets Unknown Testosterone 1.62% Gel place 2 pumps to shoulder daily- rub in until dry maximum daily dose = 2 pumps, code f Unknown Lorazepam 0.5mg Tablets Unknown Metronidazole 0.75% Gel Unknown Immunizations Description No Information Available Vital Signs Date Vital Result Comment 11/02/2020 2:16pm Body Temperature 97.1 F Height 67.5 inches 5'7.50" Weight 191.50 lb BMI (Body Mass Index) 29.5 kg/m2 Results Description No Information Available Procedures Date Code Description Status 03/27/2021 88832 Office/Outpatient Established Lo w MDM 20-29 Min Completed 01/25/2021 33440 Consultation Outpatient Level 4 Completed 01/25/2021 32120 Nerve Conduction 9-10 Studies Co mpleted 01/25/2021 59490 Needle Electromyography,Complete Five Or More Muscles Studied Completed 12/04/2020 43559 Office/Outpatient Established Lo w MDM 20-29 Min Completed 11/02/2020 23229 Office/Outpatient New Moderate M DM 45-59 Minutes Completed 11/02/2020 34301 X-Ray Hip Unilateral With Pelvis 2-3 Views Completed Medical Devices Description No Information Available Encounters Type Date Location Provider Dx Diagnosis Office Visit 03/27/2021 5:00p [facility] Saturnino Mason, P.A. M51.37 Other intervertebral disc degeneration, lumbosacral region M54.16 Radiculopathy, lumbar region Office Visit 01/25/2021 1:00p [facility] Guillermo Baum MD M51.37 Other intervertebral disc degeneration, lumbosacral region M47.897 Other spondylosis, lumbosacr al region M51.27 Other intervertebral disc di splacement, lumbosacral region M54.16 Radiculopathy, lumbar region M54.17 Radiculopathy, lumbosacral r egion Office Visit 12/04/2020 2:45p [place] Saturnino Mason P.A. M51.36 Other intervertebral disc degeneration, lumbar region Office Visit 11/02/2020 2:45p [facility] Saturnino Mason P.ACalos M51.36 Other intervertebral disc degeneration, lumbar region M16.11 Unilateral primary osteoarth ritis, right hip Assessments Date Code Description Provider 03/27/2021 M51.37 Other intervertebral disc degene ration, lumbosacral region Saturnino Mason, P.A. 03/27/2021 M54.16 Radiculopathy, lumbar region [facility] isaura Mason P.A. 01/25/2021 M51.37 Other intervertebral disc degene ration, lumbosacral region Guillermo Baum MD 01/25/2021 M47.897 Other spondylosis, lumbosacral r egion Guillermo Baum MD 01/25/2021 M51.27 Other intervertebral disc displa cement, lumbosacral region Guillermo Baum MD 01/25/2021 M54.16 Radiculopathy, lumbar region How nathan Baum MD 01/25/2021 M54.17 Radiculopathy, lumbosacral regio n Guillermo Baum MD 12/04/2020 M51.36 Other intervertebral disc degene ration, lumbar region Nubia Ramirez 11/02/2020 M51.36 Other intervertebral disc degene ration, lumbar region Nubia Ramirez 11/02/2020 M16.11 Unilateral primary osteoarthriti s, right hip Nubia Ramirez Plan of Treatment Future Appointment(s):* 04/10/2021 8:00 am - Nubia Ramirez at [facility] Functional Status Description No Information Available Mental Status Description No Information Available Referrals Refer to Dr Reason for Referral Status Appt Date Saturnino Mason PA EMG NO AUTH REQUIRED TO SCHEDULING NT Created [address] [place] [address] [phone] Saturnino Mason PA MRI NO AUTH REQUIRED FOR MRI OF LUMBAR SPINE W & W/O (66735) TO ANAM LEE Created [address] [place] [address] [phone]
--- OUTSIDE RECORDS SUMMARY | 2021-05-28 08:13 | CCD | Continuity of Care Document ---
Author Author Jonathan MASON P.A. Organization Unknown Address [address] [place] [address] Phone [phone] Care Team Providers Care Cinder Crusher Operator Name Role Phone Yen Winkler HOME APPLIANCE INSTALLER AUTM [phone] Problems Active Problems Provider Date Essential hypertension [...] Information Available Procedures Date Code Description Status 04/10/2021 07668 Office/Outpatient Established Mo d MDM 30-39 Min Completed 03/27/2021 09855 Office/Outpatient Established Lo w MDM 20-29 Min Completed 01/25/2021 50708 Consultation Outpatient Level 4 Completed 01/25/2021 85915 Nerve Conduction 9-10 Studies Co mpleted 01/25/2021 24520 Needle Electromyography,Complete Five Or More Muscles Studied Completed 12/04/2020 27448 Office/Outpatient Established Lo w MDM 20-29 Min Completed 11/02/2020 92884 Office/Outpatient New Moderate M DM 45-59 Minutes Completed 11/02/2020 53003 X-Ray Hip Unilateral With Pelvis 2-3 Views Completed Medical Devices Description No Information Available Encounters Type Date Location Provider Dx Diagnosis Office Visit 04/10/2021 8:00a Erendira Mason, PCalosA. M51.37 Other intervertebral disc degeneration, lumbosacral region M54.16 Radiculopathy, lumbar region Office Visit 03/27/2021 5:00p [facility] Mason P.A. M51.37 Other intervertebral disc degeneration, lumbosacral region M54.16 Radiculopathy, lumbar region Office Visit 01/25/2021 1:00p [place] Baum MD M51.37 Other intervertebral disc degeneration, lumbosacral region M47.897 Other spondylosis, lumbosacr al region M51.27 Other intervertebral disc di splacement, lumbosacral region M54.16 Radiculopathy, lumbar region M54.17 Radiculopathy, lumbosacral r egion Office Visit 12/04/2020 2:45p [place] Saturnino Mason, P.A. M51.36 Other intervertebral disc degeneration, lumbar region Office Visit 11/02/2020 2:45p Templehaydee Mason P.A. M51.36 Other intervertebral disc degeneration, lumbar region M16.11 Unilateral primary osteoarth ritis, right hip Assessments Date Code Description Provider 04/10/2021 M51.37 Other intervertebral disc degene ration, lumbosacral region Nubia Ramirez 04/10/2021 M54.16 Radiculopathy, lumbar region [facility] Elias WongA. 03/27/2021 M51.37 Other intervertebral disc degene ration, lumbosacral region Saturnino Mason PCalosA. 03/27/2021 M54.16 Radiculopathy, lumbar region [facility] isaura Mason P.A. 01/25/2021 M51.37 Other intervertebral [...] Other intervertebral disc degene ration, lumbar region Ailin Ramirez.A. 11/02/2020 M51.36 Other intervertebral disc degene ration, lumbar region Ailin Ramirez.ACalos 11/02/2020 M16.11 Unilateral primary osteoarthriti s, right hip Nubia Ramirez Plan of Treatment Future Appointment(s):* 05/06/2021 1:40 pm - Guillermo Baum MD at [facility] * 05/02/2021 1:30 pm - Lab at [facility] 04/10/2021 - Nubia Ramirez* M51.37 Other intervertebral disc degeneration, lumbosacral region* Follow up:* 2 weeks after [facility] inj with MKM * M54.16 Radiculopathy, lumbar region Functional Status Description No Information Available Mental Status Description No Information Available Referrals Refer to Dr Reason for Referral Status Appt Date Guillermo Baum MD [place] INJ'S (14079, 50132, [phone] 17, & 20427) PER [employer] NO AUTH REQUIRED TO SURGERY NT Created [address] [facility], [address] [place] [address] [phone] Saturnino Mason PA EMG NO AUTH REQUIRED TO SCHEDULING NT Created [address] [place] [address] [address] [place] [address] [phone] Saturnino Mason PA MRI NO AUTH REQUIRED FOR MRI OF LUMBAR SPINE W & W/O (66795) TO ANAM Vences DG Created [address] [place] [address] [address] [place] [address] [phone]
--- OUTSIDE RECORDS SUMMARY | 2021-05-28 08:13 | CCD | Continuity of Care Document ---
Author Author Jonathan MASON P.A. Organization Unknown Address [address] [place] [address] Phone [phone] Care Team Providers Care Senior Manager Asset Protection Name Role Phone Yen Winkler FILM WASHER AUTM [phone] Problems Active Problems Provider Date Essential hypertension [...] Available Procedures Date Code Description Status 03/27/2021 34782 Phone Evaluation/Management Phys ician 11-20 Mins Completed 01/25/2021 08972 Consultation Outpatient Level 4 Completed 01/25/2021 00003 Nerve Conduction 9-10 Studies Co mpleted 01/25/2021 78016 Needle Electromyography,Complete Five Or More Muscles Studied Completed 12/04/2020 02176 Office/Outpatient Established Lo w MDM 20-29 Min Completed 11/02/2020 06144 Office/Outpatient New Moderate M DM 45-59 Minutes Completed 11/02/2020 61548 X-Ray Hip Unilateral With Pelvis 2-3 Views Completed Medical Devices Description No Information Available Encounters Type Date Location Provider Dx Diagnosis Office Visit 03/27/2021 5:00p [place] Saturnino Mason, P.A. M51.37 Other intervertebral disc degeneration, lumbosacral region M47.897 Other spondylosis, lumbosacr al region M51.27 Other intervertebral disc di splacement, lumbosacral region M54.16 Radiculopathy, lumbar region Office Visit 01/25/2021 1:00p [place] Guillermo Baum MD M51.37 Other intervertebral disc degeneration, lumbosacral region M47.897 Other spondylosis, lumbosacr al region M51.27 Other intervertebral disc di splacement, lumbosacral region M54.16 Radiculopathy, lumbar region M54.17 Radiculopathy, lumbosacral r egion Office Visit 12/04/2020 2:45p [place] Saturnino Mason, P.A. M51.36 Other intervertebral disc degeneration, lumbar region Office Visit 11/02/2020 2:45p [place] Saturnino Mason, P.A. M51.36 Other intervertebral disc degeneration, lumbar region M16.11 Unilateral primary osteoarth ritis, right hip Assessments Date Code Description Provider 03/27/2021 M51.37 Other intervertebral disc degene ration, lumbosacral region Saturnino Mason, P.A. 03/27/2021 M47.897 Other spondylosis, lumbosacral r egion Saturnino Mason, P.A. 03/27/2021 M51.27 Other intervertebral disc displa cement, lumbosacral region Saturnino Mason, P.A. 03/27/2021 M54.16 Radiculopathy, lumbar region [facility] isaura Mason, P.A. 01/25/2021 M51.37 Other intervertebral disc degene ration, lumbosacral region Guillermo Baum MD 01/25/2021 M47.897 Other spondylosis, lumbosacral r egion Guillermo Baum MD 01/25/2021 M51.27 Other intervertebral disc displa cement, lumbosacral region Guillermo Baum MD 01/25/2021 M54.16 Radiculopathy, lumbar region How nathan Baum MD 01/25/2021 M54.17 Radiculopathy, lumbosacral regio n Guillermo Baum MD 12/04/2020 M51.36 Other intervertebral disc degene ration, lumbar region Saturnino Mason, P.A. 11/02/2020 M51.36 Other intervertebral disc degene ration, lumbar region Saturnino Mason, P.A. 11/02/2020 M16.11 Unilateral primary osteoarthriti s, right hip Saturnino Mason, P.A. Plan of Treatment 01/25/2021 - Guillermo Baum MD* M51.37 Other intervertebral disc degeneration, lumbosacral region* Follow up:* EMG results with MKM. * M47.897 Other spondylosis, lumbosacral region * M51.27 Other intervertebral disc displacement, lumbosacral region * M54.16 Radiculopathy, lumbar region * M54.17 Radiculopathy, lumbosacral region Functional Status Description No Information Available Mental Status Description No Information Available Referrals Refer to Dr Reason for Referral Status Appt Date Saturnino Mason PA EMG NO AUTH REQUIRED TO SCHEDULING NT Created [address] [place] [address] [phone] Saturnino Mason PA MRI NO AUTH REQUIRED FOR MRI OF LUMBAR SPINE W & W/O ([id number]) TO ANAM Vences DG Created [address] [place] [address] [phone]
--- OUTSIDE RECORDS SUMMARY | 2021-05-28 08:13 | CCD | Continuity of Care Document ---
Author Author Jonathan BELTRE M.D. Organization Unknown Address [address] [facility], [address] [place] [address] Phone [phone] Care Team Providers Care Box Nailer Name Role Phone Yen Winkler AUTM Bonnie Louis N.P. AUTM [phone] Problems Active Problems Provider Date Essential hypertension [...] lb BMI (Body Mass Index) 30.1 kg/m2 [place] Body Weight 148 lb Weight 87.148 kg BSA (Body Surface Area) 1.99 m2 10/10/2015 8:37am BP Systolic 116 mmHg BP Diastolic 77 mmHg Height 67 inches 5'7" Weight 197.25 lb W/Uniform/Boots BMI (Body Mass Index) 30.9 kg/m2 [place] Body Weight 148 lb Weight 89.473 kg BSA (Body Surface Area) 2.01 m2 Results Description No Information Available Procedures Description No Information Available Medical Devices Description No Information Available Encounters Description No Information Available Assessments Description No Information Available Plan of Treatment Future Appointment(s):* 06/05/2021 8:30 am - Toni Beltre M.D. at [facility] * 05/28/2021 9:05 am - Toni Beltre M.D. at [facility] 10/10/2015 - Toni Beltre M.D.* [...] Toni Beltre M.D. GALLBLADDER DISEASE Scheduled 04/29 [facility] [address] [place] [phone]
--- OUTSIDE RECORDS SUMMARY | 2021-05-28 08:13 | CCD | Continuity of Care Document ---
Author Author Jonathan BEAVERS M.D. 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 Onset: 04/11/2021 Gastroesophageal reflux disease Abdulkadir Beavers M.D. Ons et: 12/25/2020 Dysphagia Abdulkadir Baevers M.D. Onset: 10/18/19 15 Social History Type Date Description Comments Sex Unknown ETOH Use Occasionally Tobacco Use Start: Unknown End: Unknown Patient is a former smoker Allergies and adverse reactions Description No Known Drug Allergies Medications Active Medications SIG Qnty Indications Ordering Provide r Date Prozac 20mg Capsules 60 MG Per Day 30capmarcos Beavers M.D. 04/11/2021 Suprep Bowel Prep Kit 17.5-3.13-1.6GM/177ML Solution use as directed 354ml Abdulkadir Beavers M.D. 04/11/[address] 1 cap by mouth every morning 90roxi Beavers M.D. 021 Lotrel 10-40mg Capsules Unknown Lipitor 20mg Tablets Unknown Trazodone HCL 150mg Tablets Unknown Testosterone 1.62% Gel Unknown Lorazepam 2mg Tablets 5MG Per Day Unknown Metronidazole 0.75% Cream Unknown Immunizations Description No Information Available Vital Signs Date Vital Result Comment 04/11/2021 1:51pm Height 67 inches 5'7" Weight 188.06 lb BP Systolic 122 mmHg BP Diastolic 76 mmHg Heart Rate 71 /min BMI (Body Mass Index) 29.5 kg/m2 Weight 85.305 kg Body Temperature 97.0 F 12/25/2020 3:40pm Height 67 inches 5'7" Weight 193.00 lb BP Systolic 125 mmHg BP Diastolic 80 mmHg Heart Rate 56 /min BMI (Body Mass Index) 30.2 kg/m2 Weight 87.545 kg Body Temperature 97.2 F Results Description No Information Available Procedures Date Code Description Status 04/11/2021 75556 Office/Outpatient Established Mo d MDM 30-39 Min Completed 12/25/2020 35226 Office/Outpatient New Low MDM 30 -44 Minutes Completed Medical Devices Description No Information Available Encounters Type Date Location Provider Dx Diagnosis Office Visit 04/11/2021 1:30p Main Office Abdulkadir Beavers M.D. Z 12.11 Encounter for screening for malignant neoplasm of colon K21.9 Gastro-esophageal reflux dis ease without esophagitis R10.9 Unspecified abdominal pain Office Visit 12/25/2020 3:15p Main Office Abdulkadir Beavers M.D. K 21.9 Gastro-esophageal reflux disease without esophagitis Assessments Date Code Description Provider 04/11/2021 Z12.11 Screening for malignant neoplasm of colon Abdulkadir Beavers M.D. 04/11/2021 K21.9 Gastroesophageal reflux disease Abdulkadir Beavers M.D. 04/11/2021 R10.9 Abdominal pain Abdulkadir bird M.D. 12/25/2020 K21.9 Gastroesophageal reflux disease Abdulkadir Beavers M.D. Plan of Treatment Future Appointment(s):* 05/17/2021 7:30 am - [facility] at Main Office * 05/31/2021 9:00 am - Abdulkadir Beavers M.D. at Main Office 04/11/2021 - Abdulkadir Beavers M.D.* Z12.11 Screening for malignant neoplasm of colon* Comments:* 45 yo wm who presents for a screening colonoscopy/egd for heartburn. Positive c/o abdominal pain/soreness attack 3 weeks ago. No weight loss, change in bowel habits, or rectal bleeding. No family h/o colon cancer. No h/o chest pain, or sob. Plan:1.Schedule patient for a colonoscopy + egd + gallbladder us r/o stones.2.Informed consent given to the patient.3.Pt. advised to stop aspirin,plavix, and anticoagulants at least 3 to 7 days prior to the procedure. * K21.9 Gastroesophageal reflux disease* New Xrays:* Ultrasound of the Gallbladder, Scheduled: 04/17/21 * Comments:* As above. * R10.9 Abdominal pain* New Xrays:* Ultrasound of the Gallbladder, Scheduled: 04/17/21 * Comments:* As above. Functional Status Description No Information Available Mental Status Description No Information Available Referrals Refer to Reason for Referral Status Appt Date Abdulkadir Beavers M.D. Created [address] [place] [address] [phone]
--- OUTSIDE RECORDS SUMMARY | 2021-05-28 08:14 | CCD ---
Author Author [facility] Organization [facility] Address Unknown Phone Unavailable Care Team Providers Care Dye Box Operator Name Role Phone Aguilar Beavers MD Unavailable Unavailable Aguilar Beavers MD Unavailable Unavailable Aguilar Beavers MD Unavailable Unavailable Aguilar Beavers MD Unavailable Unavailable Aguilar Beavers MD Unavailable Unavailable Aguilar Beavers MD Unavailable Unavailable Aguilar Beavers MD Unavailable Unavailable Aguilar Beavers MD Unavailable Unavailable Aguilar Beavers MD Unavailable Unavailable Aguilar Beavers MD Unavailable Unavailable Aguilar Beavers MD Unavailable Unavailable Aguilar Beavers MD Unavailable Unavailable Aguilar Beavers MD Unavailable Unavailable Aguilar Beavers MD Unavailable Unavailable Ruthann S Abdulkadir MCLEAN Unavailable Unavailable Ruthann S Abdulkadir MCLEAN Unavailable Unavailable Ruthann, S Abdulkadir MCLEAN Unavailable Unavailable Ruthann S Abdulkadir MCLEAN Unavailable Unavailable Ruthann S Abdulkadir MCLEAN Unavailable Unavailable Ruthann S Abdulkadir MCLEAN Unavailable Unavailable Ruthann S Abdulkadir MD Unavailable Unavailable Ruthann S Abdulkadir MD Unavailable Unavailable Ruthann, S Abdulkadir MD Unavailable Unavailable Ruthann S Abdulkadir MD Unavailable Unavailable Ruthann S Abdulkadir MCLEAN Unavailable Unavailable Ruthann S Abdulkadir MCLEAN Unavailable Unavailable Ruthann S Abdulkadir MCLEAN Unavailable Unavailable Ruthann S Abdulkadir MCLEAN Unavailable Unavailable Ruthann S Abdulkadir MCLEAN Unavailable Unavailable Ruthann S Abdulkadir MCLEAN Unavailable Unavailable Ruthann S Abdulkadir MCLEAN Unavailable Unavailable Ruthann S Abdulkadir MCLEAN Unavailable Unavailable Ruthann S Abdulkadir MCLEAN Unavailable Unavailable Ruthann, S Abdulkadir MCLEAN Unavailable Unavailable Aguilar Beavers MD Unavailable Unavailable Ruthann, S Abdulkadir MCLEAN Unavailable Unavailable Ruthann, S Abdulkadir MCLEAN Unavailable Unavailable Ruthann, S Abdulkadir MCLEAN Unavailable Unavailable Ruthann S Abdulkadir MCLEAN Unavailable Unavailable Ruthann S Abdulkadir MCLEAN Unavailable Unavailable Ruthann S Abdulkadir MCLEAN Unavailable Unavailable Aguilar Beavers MD Unavailable Unavailable Ruthann S Abdulkadir MCLEAN Unavailable Unavailable Aguilar Beavers MD Unavailable Unavailable Aguilar Beavers MD Unavailable Unavailable Aguilar Beavers MD Unavailable Unavailable Aguilar Beavers MD Unavailable Unavailable Aguilar Beavers MD Unavailable Unavailable Ruthann S Abdulkadir MCLEAN Unavailable Unavailable Ruthann S Abdulkadir MCLEAN Unavailable Unavailable Baum, Guillermo Unavailable Unavailable Baum, Guillermo Unavailable Unavailable Baum, Guillermo Unavailable Unavailable Baum, Guillermo Unavailable Unavailable Baum, Guillermo Unavailable Unavailable Baum, Guillermo Unavailable Unavailable Baum, Guillermo Unavailable Unavailable Baum, Guillermo Unavailable Unavailable Baum, Guillermo Unavailable Unavailable Baum, Guillermo Unavailable Unavailable Baum, Guillermo Unavailable Unavailable Baum, Guillermo Unavailable Unavailable Baum, Guillermo Unavailable Unavailable Baum, Guillermo Unavailable Unavailable Baum, Guillermo Unavailable Unavailable Baum, Guillermo Unavailable Unavailable Baum, Guillermo Unavailable Unavailable Baum, Guillermo Unavailable Unavailable Baum, Guillermo Unavailable Unavailable Baum, Guillermo Unavailable Unavailable Baum, Guillermo Unavailable Unavailable Baum, Guillermo Unavailable Unavailable Baum, Guillermo Unavailable Unavailable Baum, Guillermo Unavailable Unavailable Baum, Guillermo Unavailable Unavailable Baum, Guillermo Unavailable Unavailable Baum, Guillermo Unavailable Unavailable Baum, Guillermo Unavailable Unavailable Baum, Guillermo Unavailable Unavailable Baum, Guillermo Unavailable Unavailable Baum, Guillermo Unavailable Unavailable Baum, Guillermo Unavailable Unavailable Baum, Guillermo Unavailable Unavailable Baum, Guillermo Unavailable Unavailable Baum, Guillermo Unavailable Unavailable Baum, Guillermo Unavailable Unavailable Baum, Guillermo Unavailable Unavailable Baum, Guillermo Unavailable Unavailable Baum, Guillermo Unavailable Unavailable Baum, Guillermo Unavailable Unavailable Baum, Guillermo Unavailable Unavailable Baum, Guillermo Unavailable Unavailable Baum, Guillermo Unavailable Unavailable Baum, Guillermo Unavailable Unavailable Baum, Guillermo Unavailable Unavailable KARY, Natacha KWAN MD Unavailable Unavailable Natacha PRESTON MD Unavailable Unavailable KARY, Natacha KWAN MD Unavailable Unavailable KARY, Natacha KWAN MD Unavailable Unavailable KARY, Natacha KWAN MD Unavailable Unavailable KARY, Natacha KWAN MD Unavailable Unavailable KARYNatacha EDGE MD Unavailable Unavailable KARY, Natacha KWAN MD Unavailable Unavailable KARY, Natacha KWAN MD Unavailable Unavailable KARY, Natacha KWAN MD Unavailable Unavailable KARY, Natacha KWAN MD Unavailable Unavailable KARY, Natacha KWAN MD Unavailable Unavailable KARYNatacha ABRAHAM MD Unavailable Unavailable KARYNatacha ABRAHAM MD Unavailable Unavailable KARYNatacha ABRAHAM MD Unavailable Unavailable KARY, Natacha KWAN MD Unavailable Unavailable KARYNatacha ABRAHAM MD Unavailable Unavailable KARYNatacha ABRAHAM MD Unavailable Unavailable KARYNatacha ABRAHAM MD Unavailable Unavailable Natacha PRESTON MD Unavailable Unavailable KARYNatacha ABRAHAM MD Unavailable Unavailable KARYNatacha ABRAHAM MD Unavailable Unavailable Natacha PRESTON MD Unavailable Unavailable Natacha PRESTON MD Unavailable Unavailable Natacha PRESTON MD Unavailable Unavailable Natacha PRESTON MD Unavailable Unavailable Natacha PRESTON MD Unavailable Unavailable KARYNatacha ABRAHAM MD Unavailable Unavailable Natacha PRESTON MD Unavailable Unavailable Natacha PRESTON MD Unavailable Unavailable Natacha PRESTON MD Unavailable Unavailable KARYNatacha ABRAHAM MD Unavailable Unavailable Natacha PRESTON MD Unavailable Unavailable Natacha PRESTON MD Unavailable Unavailable Natacha PRESTON MD Unavailable Unavailable Natacha PRESTON MD Unavailable Unavailable Natacha PRESTON MD Unavailable Unavailable Natacha PRESTON MD Unavailable Unavailable KARYNatacha ABRAHAM MD Unavailable Unavailable Natacha PRESTON MD Unavailable Unavailable KARYNatacha ABRAHAM MD Unavailable Unavailable KARYNatacha ABRAHAM MD Unavailable Unavailable KARYNatacha ABRAHAM MD Unavailable Unavailable KARYNatacha EDGE MD Unavailable Unavailable KARY, Natacha KWAN MD Unavailable Unavailable KARY, Natacha KWAN MD Unavailable Unavailable KARY, Natacha KWAN MD Unavailable Unavailable KARY, Natacha KWAN MD Unavailable Unavailable KARY, Natacha KWAN MD Unavailable Unavailable KARY, Natacha KWAN MD Unavailable Unavailable KARY, Natacha KWAN MD Unavailable Unavailable KARY, Natacha KWAN MD Unavailable Unavailable KARY, Natacha KWAN MD Unavailable Unavailable KARY, Natacha KWAN MD Unavailable Unavailable KARY, Natacha KWAN MD Unavailable Unavailable KARY, Natacha KWAN MD Unavailable Unavailable KARY, Natacha KWAN MD Unavailable Unavailable KARY, Natacha KWAN MD Unavailable Unavailable KARY, E AQUILES MCLEAN Unavailable Unavailable KARY, E AQUILES MCLEAN Unavailable Unavailable KARY, E AQUILES MCLEAN Unavailable Unavailable KARY, Natacha KWAN MD Unavailable Unavailable KARY, Natacha KWAN MD Unavailable Unavailable KARY, Natacha KWAN MD Unavailable Unavailable KARY, Natacha KWAN MD Unavailable Unavailable KARY, Natacha KWAN MD Unavailable Unavailable KARY, Natacha KWAN MD Unavailable Unavailable KARY, Natacha KWAN MD Unavailable Unavailable KARY, Natacha KWAN MD Unavailable Unavailable KARY, Natacha KWAN MD Unavailable Unavailable KARY, Natacha KWAN MD Unavailable Unavailable KARY, Natacha KWAN MD Unavailable Unavailable KARY, Natacha KWAN MD Unavailable Unavailable KARY, Natacha KWAN MD Unavailable Unavailable KARY, Natacha KWAN MD Unavailable Unavailable KARY, Natacha KWAN MD Unavailable Unavailable KARY, Natacha KWAN MD Unavailable Unavailable KARY, Natacha KWAN MD Unavailable Unavailable KARY, Natacha KWAN MD Unavailable Unavailable KARY, Natacha KWAN MD Unavailable Unavailable KARY, Natacha KWAN MD Unavailable Unavailable KARY, Natacha KWAN MD Unavailable Unavailable KARY, Natacha KWAN MD Unavailable Unavailable KARY, Natacha KWAN MD Unavailable Unavailable KARY, Natacha KWAN MD Unavailable Unavailable KARY, Natacha KWAN MD Unavailable Unavailable KARY, Natacha KWAN MD Unavailable Unavailable KARY, Natacha KWAN MD Unavailable Unavailable KARY, Natacha KWAN MD Unavailable Unavailable KARY, Natacha KWAN MD Unavailable Unavailable KARY, Natacha KWAN MD Unavailable Unavailable KARY, Natacha KWAN MD Unavailable Unavailable KARY, Natacha KWAN MD Unavailable Unavailable KARY, Natacha KWAN MD Unavailable Unavailable KARY, E AQUILES MD Unavailable Unavailable Natacha PRESTON MD Unavailable Unavailable Natacha PRESTON MD Unavailable Unavailable Natacha PRESTON MD Unavailable Unavailable MCELHERAN, JUVENTINO PA Unavailable Unavailable MCELHERAN, JUVENTINO PA Unavailable Unavailable MCELHERAN, JUVENTINO PA Unavailable Unavailable MCELHERAN, JUVENTINO PA Unavailable Unavailable MCELHERAN, JUVENTINO PA Unavailable Unavailable MCELHERAN, JUVENTINO PA Unavailable Unavailable MCELHERAN, JUVENTINO PA Unavailable Unavailable MCELHERAN, JUVENTINO PA Unavailable Unavailable MCELHERAN, JUVENTINO PA Unavailable Unavailable MCELHERAN, JUVENTINO PA Unavailable Unavailable MCELHERAN, JUVENTINO PA Unavailable Unavailable MCELHERAN, JUVENTINO PA Unavailable Unavailable MCELHERAN, JUVENTINO PA Unavailable Unavailable MCELHERAN, JUVENTINO PA Unavailable Unavailable MCELHERAN, JUVENTINO PA Unavailable Unavailable MCELHERAN, JUVENTINO PA Unavailable Unavailable MCELHERAN, JUVENTINO PA Unavailable Unavailable MCELHERAN, JUVENTINO PA Unavailable Unavailable MCELHERAN, JUVENTINO PA Unavailable Unavailable MCELHERAN, JUVENTINO PA Unavailable Unavailable MCELHERAN, JUVENTINO PA Unavailable Unavailable MCELHERAN, JUVENTINO PA Unavailable Unavailable MCELHERAN, JUVENTINO PA Unavailable Unavailable MCELHERAN, JUVENTINO PA Unavailable Unavailable MCELHERAN, JUVENTINO PA Unavailable Unavailable MCELHERAN, JUVENTINO PA Unavailable Unavailable MCELHERAN, JUVENTINO PA Unavailable Unavailable MCELHERAN, JUVENTINO PA Unavailable Unavailable MCELHERAN, JUVENTINO PA Unavailable Unavailable PARNESChristiano ALYCIA MD Unavailable Unavailable PARNES Z ALYCIA MD Unavailable Unavailable PARNES Z ALYCIA MD Unavailable Unavailable PARNES Z ALYCIA MD Unavailable Unavailable PARNESChristiano ALYCIA MD Unavailable Unavailable PARNES Z ALYCIA MD Unavailable Unavailable PARNES Z ALYCIA MD Unavailable Unavailable PARNES Z ALYCIA MD Unavailable Unavailable PARNES, Z ALYCIA MD Unavailable Unavailable PARNES Z ALYCIA MD Unavailable Unavailable PARNES, Z ALYCIA MD Unavailable Unavailable PARNES Z ALYCIA MD Unavailable Unavailable PARNES Z ALYCIA MD Unavailable Unavailable PARNES Z ALYCIA MD Unavailable Unavailable PARNES Z ALYCIA MD Unavailable Unavailable PARNES, Z ALYCIA MD Unavailable Unavailable PARNES, Z ALYCIA MD Unavailable Unavailable PARNES, Z ALYCIA MD Unavailable Unavailable PARNES, Z ALYCIA MD Unavailable Unavailable PARNES, Z ALYCIA MD Unavailable Unavailable PARNES, Z ALYCIA MD Unavailable Unavailable PARNES, Z ALYCIA MD Unavailable Unavailable PARNES, Z ALYCIA MD Unavailable Unavailable PARNES, Z ALYCIA MD Unavailable Unavailable PARNES, Z ALYCIA MD Unavailable Unavailable PARNES, Z ALYCIA MD Unavailable Unavailable PARNES, Z ALYCIA MD Unavailable Unavailable PARNES, Z ALYCIA MD Unavailable Unavailable PARNES, Z ALYCIA MD Unavailable Unavailable PARNES, Z ALYCIA MD Unavailable Unavailable PARNES, Z ALYCIA MD Unavailable Unavailable PARNES, Z ALYCIA MD Unavailable Unavailable PARNES, Z ALYCIA MD Unavailable Unavailable PARNES, Z ALYCIA MD Unavailable Unavailable PARNES, Z ALYCIA MD Unavailable Unavailable PARNES, Z ALYCIA MD Unavailable Unavailable PARNES, Z ALYCIA MD Unavailable Unavailable PARNES, Z ALYCIA MD Unavailable Unavailable PARNES, Z ALYCIA MD Unavailable Unavailable PARNES, Z ALYCIA MD Unavailable Unavailable PARNES, Z ALYCIA MD Unavailable Unavailable PARNES, Z ALYCIA MD Unavailable Unavailable Mimi, D Km WELCOME WAGON HOST/HOSTESS Unavailable Unavailable Mimi, D Km WELCOME WAGON HOST/HOSTESS Unavailable Unavailable Mimi, D Km WELCOME WAGON HOST/HOSTESS Unavailable Unavailable Mimi, D Km WELCOME WAGON HOST/HOSTESS Unavailable Unavailable Mimi, D Km WELCOME WAGON HOST/HOSTESS Unavailable Unavailable Mimi, D Km WELCOME WAGON HOST/HOSTESS Unavailable Unavailable Mimi, D Km WELCOME WAGON HOST/HOSTESS Unavailable Unavailable Mimi, D Km WELCOME WAGON HOST/HOSTESS Unavailable Unavailable Mimi, D Km WELCOME WAGON HOST/HOSTESS Unavailable Unavailable Mimi, D Km WELCOME WAGON HOST/HOSTESS Unavailable Unavailable Mimi, D Km WELCOME WAGON HOST/HOSTESS Unavailable Unavailable Mimi, D Km WELCOME WAGON HOST/HOSTESS Unavailable Unavailable Mimi, D Km WELCOME WAGON HOST/HOSTESS Unavailable Unavailable Mimi, D Km WELCOME WAGON HOST/HOSTESS Unavailable Unavailable Mimi, D Km WELCOME WAGON HOST/HOSTESS Unavailable Unavailable Mimi, D Km WELCOME WAGON HOST/HOSTESS Unavailable Unavailable Mimi, D Km WELCOME WAGON HOST/HOSTESS Unavailable Unavailable Mimi, D Km WELCOME WAGON HOST/HOSTESS Unavailable Unavailable Mimi, D Km WELCOME WAGON HOST/HOSTESS Unavailable Unavailable Mimi, D Km WELCOME WAGON HOST/HOSTESS Unavailable Unavailable Mimi, D Km WELCOME WAGON HOST/HOSTESS Unavailable Unavailable Mimi, D Km WELCOME WAGON HOST/HOSTESS Unavailable Unavailable Mimi, D Km WELCOME WAGON HOST/HOSTESS Unavailable Unavailable Mimi, D Km WELCOME WAGON HOST/HOSTESS Unavailable Unavailable Mimi, D Km WELCOME WAGON HOST/HOSTESS Unavailable Unavailable Mimi, D Km WELCOME WAGON HOST/HOSTESS Unavailable Unavailable Mimi, D Km WELCOME WAGON HOST/HOSTESS Unavailable Unavailable Mimi, D Km WELCOME WAGON HOST/HOSTESS Unavailable Unavailable Mimi, D Km WELCOME WAGON HOST/HOSTESS Unavailable Unavailable Mimi, D Km WELCOME WAGON HOST/HOSTESS Unavailable Unavailable Mimi, D Km WELCOME WAGON HOST/HOSTESS Unavailable Unavailable Mimi, D Km WELCOME WAGON HOST/HOSTESS Unavailable Unavailable Mimi, D Km WELCOME WAGON HOST/HOSTESS Unavailable Unavailable Mimi, D Km WELCOME WAGON HOST/HOSTESS Unavailable Unavailable Mimi, D Km WELCOME WAGON HOST/HOSTESS Unavailable Unavailable Mimi, D Km WELCOME WAGON HOST/HOSTESS Unavailable Unavailable Peterson, R Yen DIRECTOR SOFTWARE QUALITY ASSURANCE Unavailable Unavailable Peterson, R Yen DIRECTOR SOFTWARE QUALITY ASSURANCE Unavailable Unavailable Peterson, R Yen DIRECTOR SOFTWARE QUALITY ASSURANCE Unavailable Unavailable Peterson, R Yen DIRECTOR SOFTWARE QUALITY ASSURANCE Unavailable Unavailable Peterson, R Yen DIRECTOR SOFTWARE QUALITY ASSURANCE Unavailable Unavailable Peterson, R Yen DIRECTOR SOFTWARE QUALITY ASSURANCE Unavailable Unavailable Peterson, R Yen DIRECTOR SOFTWARE QUALITY ASSURANCE Unavailable Unavailable Peterson, R Yen DIRECTOR SOFTWARE QUALITY ASSURANCE Unavailable Unavailable Peterson, R Yen DIRECTOR SOFTWARE QUALITY ASSURANCE Unavailable Unavailable Peterson, R Yen DIRECTOR SOFTWARE QUALITY ASSURANCE Unavailable Unavailable Peterson, R Yen DIRECTOR SOFTWARE QUALITY ASSURANCE Unavailable Unavailable Peterson, R Yen DIRECTOR SOFTWARE QUALITY ASSURANCE Unavailable Unavailable Peterson, R Yen DIRECTOR SOFTWARE QUALITY ASSURANCE Unavailable Unavailable Peterson, R Yen DIRECTOR SOFTWARE QUALITY ASSURANCE Unavailable Unavailable Peterson, R Yen DIRECTOR SOFTWARE QUALITY ASSURANCE Unavailable Unavailable Peterson, R Yen DIRECTOR SOFTWARE QUALITY ASSURANCE Unavailable Unavailable Peterson, R Yen DIRECTOR SOFTWARE QUALITY ASSURANCE Unavailable Unavailable Peterson, R Yen DIRECTOR SOFTWARE QUALITY ASSURANCE Unavailable Unavailable Peterson, R Yen DIRECTOR SOFTWARE QUALITY ASSURANCE Unavailable Unavailable Peterson, R Yen DIRECTOR SOFTWARE QUALITY ASSURANCE Unavailable Unavailable Peterson, R Yen DIRECTOR SOFTWARE QUALITY ASSURANCE Unavailable Unavailable Peterson, R Yen DIRECTOR SOFTWARE QUALITY ASSURANCE Unavailable Unavailable Peterson, R Yen DIRECTOR SOFTWARE QUALITY ASSURANCE Unavailable Unavailable Peterson, R Yen DIRECTOR SOFTWARE QUALITY ASSURANCE Unavailable Unavailable Peterson, R Yen DIRECTOR SOFTWARE QUALITY ASSURANCE Unavailable Unavailable Peterson, R Yen DIRECTOR SOFTWARE QUALITY ASSURANCE Unavailable Unavailable Peterson, R Yen DIRECTOR SOFTWARE QUALITY ASSURANCE Unavailable Unavailable Peterson, R Yen DIRECTOR SOFTWARE QUALITY ASSURANCE Unavailable Unavailable Peterson, R Yen DIRECTOR SOFTWARE QUALITY ASSURANCE Unavailable Unavailable Peterson, R Yen DIRECTOR SOFTWARE QUALITY ASSURANCE Unavailable Unavailable Peterson, R Yen DIRECTOR SOFTWARE QUALITY ASSURANCE Unavailable Unavailable Peterson, R Yen DIRECTOR SOFTWARE QUALITY ASSURANCE Unavailable Unavailable Peterson, R Yen DIRECTOR SOFTWARE QUALITY ASSURANCE Unavailable Unavailable Peterson, R Yen DIRECTOR SOFTWARE QUALITY ASSURANCE Unavailable Unavailable Peterson, R Yen DIRECTOR SOFTWARE QUALITY ASSURANCE Unavailable Unavailable Peterson, R Yen DIRECTOR SOFTWARE QUALITY ASSURANCE Unavailable Unavailable Peterson, R Yen DIRECTOR SOFTWARE QUALITY ASSURANCE Unavailable Unavailable Peterson, R Yen DIRECTOR SOFTWARE QUALITY ASSURANCE Unavailable Unavailable Peterson, R Yen DIRECTOR SOFTWARE QUALITY ASSURANCE Unavailable Unavailable Peterson, R Yen DIRECTOR SOFTWARE QUALITY ASSURANCE Unavailable Unavailable Tio PA-C, L PA-C Vick Unavailable [phone] Tio PA-C, L PA-C Vick Unavailable [phone] Tio PA-C, L PA-C Vick Unavailable [phone] Tio PA-C, L PA-C Vick Unavailable [phone] Tio PA-C, L PA-C Vick Unavailable [phone] Mimi, D Km WELCOME WAGON HOST/HOSTESS Unavailable Unavailable Mimi, D Km WELCOME WAGON HOST/HOSTESS Unavailable Unavailable Mimi, D Km WELCOME WAGON HOST/HOSTESS Unavailable Unavailable Mimi, D Km WELCOME WAGON HOST/HOSTESS Unavailable Unavailable Mimi, D Km WELCOME WAGON HOST/HOSTESS Unavailable Unavailable Mimi, D Km WELCOME WAGON HOST/HOSTESS Unavailable Unavailable Mimi, D Km WELCOME WAGON HOST/HOSTESS Unavailable Unavailable Mimi, D Km WELCOME WAGON HOST/HOSTESS Unavailable Unavailable Mimi, D Km WELCOME WAGON HOST/HOSTESS Unavailable Unavailable Mimi, D Km WELCOME WAGON HOST/HOSTESS Unavailable Unavailable Mimi, D Km WELCOME WAGON HOST/HOSTESS Unavailable Unavailable Mimi, D Km WELCOME WAGON HOST/HOSTESS Unavailable Unavailable Mimi, D Km WELCOME WAGON HOST/HOSTESS Unavailable Unavailable Mimi, D Km WELCOME WAGON HOST/HOSTESS Unavailable Unavailable Mimi, D Km WELCOME WAGON HOST/HOSTESS Unavailable Unavailable Mimi, D Km WELCOME WAGON HOST/HOSTESS Unavailable Unavailable Mimi, D Km WELCOME WAGON HOST/HOSTESS Unavailable Unavailable Mimi, D Km WELCOME WAGON HOST/HOSTESS Unavailable Unavailable Mimi, D Km WELCOME WAGON HOST/HOSTESS Unavailable Unavailable Mimi, D Km WELCOME WAGON HOST/HOSTESS Unavailable Unavailable Mimi, D Km WELCOME WAGON HOST/HOSTESS Unavailable Unavailable Mimi, D Km WELCOME WAGON HOST/HOSTESS Unavailable Unavailable Mimi, D Km WELCOME WAGON HOST/HOSTESS Unavailable Unavailable Mimi, D Km WELCOME WAGON HOST/HOSTESS Unavailable Unavailable Mimi, D Km WELCOME WAGON HOST/HOSTESS Unavailable Unavailable Mimi, D Km WELCOME WAGON HOST/HOSTESS Unavailable Unavailable Mimi, D Km WELCOME WAGON HOST/HOSTESS Unavailable Unavailable Mimi, D Km WELCOME WAGON HOST/HOSTESS Unavailable Unavailable Mimi, D Km WELCOME WAGON HOST/HOSTESS Unavailable Unavailable Mimi, D Km WELCOME WAGON HOST/HOSTESS Unavailable Unavailable Mimi, D Km WELCOME WAGON HOST/HOSTESS Unavailable Unavailable Mimi, D Km WELCOME WAGON HOST/HOSTESS Unavailable Unavailable Mimi, D Km WELCOME WAGON HOST/HOSTESS Unavailable Unavailable Mimi, D Km WELCOME WAGON HOST/HOSTESS Unavailable Unavailable Mimi, D Km WELCOME WAGON HOST/HOSTESS Unavailable Unavailable Mimi, D Km WELCOME WAGON HOST/HOSTESS Unavailable Unavailable Re-disclosure Warning The records that you are about to access may contain information from federally-assisted alcohol or drug abuse programs. If such information is present, then the following federally mandated warning applies: This information has been disclosed to you from records protected by federal confidentiality rules (42 CFR part 2). The federal rules prohibit you from making any further disclosure of this information unless further disclosure is expressly permitted by the written consent of the person to whom it pertains or as otherwise permitted by 42 CFR part 2. A general authorization for the release of medical or other information is NOT sufficient for this purpose. The Federal rules restrict any use of the information to criminally investigate or prosecute any alcohol or drug abuse patient.The records that you are about to access may contain highly sensitive health information, the redisclosure of which is protected by Article 27-F of the [facility] Public Health law. If you continue you may have access to information: Regarding HIV / AIDS; Provided by facilities licensed or operated by the [facility] Office of Mental Health; or Provided by the [facility] Office for People With Developmental Disabilities. If such information is present, then the following [facility] mandated warning applies: This information has been disclosed to you from confidential records which are protected by state law. State law prohibits you from making any further disclosure of this information without the specific written consent of the person to whom it pertains, or as otherwise permitted by law. Any unauthorized further disclosure in violation of state law may result in a fine or fpc sentence or both. A general authorization for the release of medical or other information is NOT sufficient authorization for further disc losure. Allergies and Adverse Reactions Type Description Substance Reaction Status Data Source(s ) No Known Drug Allergies No Known Drug Allergies [facility] No Known Food Allergies No Known Food Allergies [facility] Propensity to adverse reactions seasonal seasonal [facility] No Known Allergies No Known Allergies [facility] Family History Family Member Name Family Member Gender Family Member Status Date o f Status Description Data Source(s) Unknown Female Problem [facility] ([facility]) 3 stents placed Unknown Female Problem [facility] ([facility], ) Unknown Female Problem [facility] ([facility], ) Unknown Female Problem [facility] ([facility], ) Encounters Encounter Providers Location Date Indications Data Source(s ) Outpatient Attender: Abdulkadir Beavers MD Main Office 04/11/2021 01:30:00 PM EDT [facility] ([facility]) Outpatient Attender: JUVENTINO ROJAS Physical Therapy 04/10/2021 08:00:00 AM EDT [facility] ([facility]) OFFICE OUTPATIENT VISIT 15 MINUTES Attender: JUVENTINO ROJAS Physical Therapy 03/27/2021 05:00:00 PM EDT [facility] ([facility] ) Outpatient Attender: Guillermo Baum Physical Therapy 01/25/2021 01:00:0 0 PM EDT [facility] ([facility] ) Outpatient Attender: Abdulkadir Beavers MD Main Office 12/25/2020 03:15:00 PM EDT [facility] ([facility]) OFFICE OUTPATIENT VISIT 15 MINUTES Attender: JUVENTINO ROJAS Physical Therapy 12/04/2020 02:45:00 PM EDT [facility] ([facility]) Outpatient Attender: JUVENTINO ROJAS Physical Therapy 11/02/2020 02:45:00 PM EDT [facility] ([facility]) Unknown [id number] [facility] [address] 09/03/2020 12:00:00 AM EST eCW1 ([facility]) Outpatient Attender: AQUILES PRESTON MDReferrer: Yen Yeeif [facility] 08/14/2020 10:28:45 AM EST [facility] Recurring Patient Attender: AQUILES LARALFF MDReferrer: Yen Yee iffin [facility] 08/14/2020 09:41:44 AM EST [facility] Recurring Patient Attender: AQUILES KARY MDReferrer: Yen Yee iffin [facility] 08/14/2020 09:22:06 AM EST [facility] Outpatient Attender: ALYCIA BASILIO MDConsultant: Vick crum PA-C 08/13/2020 07:09:41 AM EST - 08/14/2020 11:27:00 AM EST [facility] Patient discharged. Outpatient Attender: Km Cali [facility] angel: ALYCIA BASILIO MDConsultant: Vick Kinsey PA-C 08/08/2020 11:31:00 AM EST - 08/08/2020 11:31:00 AM EST [facility] Outpatient Attender: ALYCIA BASILIO MD Family Practice 08/08/2020 10 :20:00 AM EST [facility] ([facility]) [place] [address] [facility] [facility] [facility] [address] 08/08/2020 12:00:00 AM EST eCW1 ([facility]) [place] [address] [facility] [facility] [facility] [address] 07/17/2020 12:00:00 AM EST eCW1 ([facility]) Outpatient Attender: ALYCIA BASILIO MDConsultant: Vick Lunsford rdy BOB-C 07/11/2020 02:56:00 PM EST - 07/11/2020 02:56:[address] [facility] Outpatient Attender: ALYCIA BASILIO MD [facility] Practice 07/11/2020 02 :00:00 PM EST MEDENT ([facility]) Recurring Patient Attender: AQUILES PRESTON MDReferrer: Yen Yee iffin [employer] 07/10/2020 09:49:36 AM EST [facility] [place] [address] [facility] [facility] [address] 07/07/2020 12:00:00 AM EST eCW1 ([facility]) Outpatient Attender: Km Cali NPConsultant: Vick botello PA-C 07/06/2020 07:20:00 AM EST - 07/06/2020 08:20:[address] [facility] Patient discharged. Outpatient Attender: Km Cali NPConsultant: Vick botello PA-C 07/01/2020 01:32:00 PM EST - 07/01/2020 02:32:[address] [facility] Outpatient Attender: ALYCIA BASILIO MDConsultant: Vick Lunsford rdy BOB-C 06/29/2020 01:12:00 PM EST - 06/29/2020 01:12:[address] [facility] Outpatient Attender: Km Cali NP [facility] 06/29/2020 1 2:00:00 PM EST MED[facility] ([facility]) Recurring Patient Attender: AQUILES PRESTON MDReferrer: Yen Yee iffin [facility] 06/20/2020 02:21:44 PM EST [facility] [place] [address] [facility] [address] 06/13/2020 12:00:00 AM EST eCW1 ([facility]) Outpatient [address] [facility] [facility] [address] 06/12/2020 12:00:00 AM EST eCW1 ([facility]) Outpatient [facility] 05/15/2020 02:24:00 PM EDT [facility] Outpatient [facility] 05/15/2020 11:55:00 AM EDT [facility] Outpatient [facility] 05/15/2020 09:52:01 AM EDT [facility] Immunizations Vaccine Date Status Description Data Source(s) COVID-19 VACCINE Pfizer 10/09/2020 12:00:00 AM EDT completed [facility] Vaccine Series Complete: NOThis Data was Submitted to [facility] Via [employer]. Medications Medication Brand Name Start Date Product Form Dose Route Admi nistrative Instructions Pharmacy Instructions Status Indications Reaction Description Data Source(s) Fluoxetine 20 MG Oral Capsule [Prozac] Prozac 04/11/2021 12:00:00 A M EDT active [facility] ([facility]) Suprep Bowel Prep Kit Suprep Bowel Prep Kit 04/11/2021 12:00:00 AM EDT active [facility] ([facility]) Omeprazole 40 MG Delayed Release Oral Capsule Omeprazole 12/25/2020 12:00:00 AM EDT ORAL active [facility] ([facility]) Insurance Providers Payer name Policy type / Coverage type Policy ID Covered green party ID Covered green party's relationship to amador Policy Amador Plan Information [facility] ACTIVE DUTY [id number] SP [id number] [facility] F [id number] SELF [id number] [facility] F [id number] SELF [id number] [facility] ACTIVE DUTY [id number] SP [id number] [facility] (2018) Commercial [id number] Self [id number] [facility] F [id number] SELF [id number] [facility] F [id number] SELF [id number] [facility] [place] [id number] 18 [id number] [facility] [place] [id number] 18 [id number] [facility] [place] [id number] 18 [id number] [facility] [place] [id number] 18 [id number] [facility] [place] [id number] 18 [id number] [facility] REGIONAL CLAIMS QUIANA-O/P [id number] 18 [id number] [facility] P UNAVAILABLE S U NAVAILABLE ANSI-Commercial [id number] ANSI-Not a Secondary Insurance [id number] [facility] [id number] SP [id number] [facility] Commercial [id number] Self [id number] ANSI-Commercial [id number] ANSI-Not a Secondary Insurance [id number] ANSI-Not a Secondary Insurance [id number] ANSI-Not a Secondary Insurance [id number] ANSI-Not a Secondary Insurance [id number] [facility] Commercial [id number] Self [id number] [facility] Commercial [id number] Self [id number] [facility] REGIONAL CLAIMS QUIANA-PHYSICIAN [id number] 18 [id number] [facility] Commercial [id number] Self [id number] [facility] CO [id number] 18 [id number] N REGIONAL CLAIMS QUIANA-CLINIC [id number] 18 [id number] [facility] Commercial [id number] Self [id number] ACTIVE DUTY [id number] SP [id number] ACTIVE DUTY [id number] SP [id number] ACTIVE DUTY [id number] SP [id number] Shannen [id number] [facility] Health Maintenance Organization (HMO) [id number] Self ACTIVE DUTY [id number] SP [id number] [facility] SP [id number] 'S ADMINISTRATION [id number] SP [id number] [facility] [id number] SP [id number] [facility] [id number] SP [id number] SELF PAY ONLY [id number] SP [id number] [facility] [place] [id number] 18 [id number] [facility] [place] [id number] 18 [id number] Problems, Conditions, and Diagnoses Code Display Name Description Problem Type Effective Dates Data Source(s) U15478 Encounter for other preprocedural examin ation Encounter for other preprocedural examination Diagnosis 08/14/2020 10:05:00 AM [facility] [id number] Primary osteoarthritis, left shoulder Pr imary osteoarthritis, left shoulder Diagnosis 08/08/2020 11:31:[address] [facility] M7552 Bursitis of left shoulder Bursitis of left shoulder Di agnosis 08/08/2020 11:31:[address] [facility] Q33227 Unspecified rotator cuff tea r or rupture of left shoulder, not specified as traumatic Unspecified rotator cuff tear or rupture of left shoulder, not specified as traumatic Diagnosis 08/08/2020 11:31:00 AM [facility] [id number] Other bursal cyst, left shoulder Other bursal cy st, left shoulder Diagnosis 07/06/2020 07:20:[address] [facility] [id number] Incomplete rotator cuff tear or rupture of left shoulder, not specified as traumatic Incomplete rotator cuff tear or rupture of left shoulder, not specified as traumatic Diagnosis 07/06/2020 07:20:00 AM [facility] B82329 Incomplete rotator cuff tear or rupture of right shoulder, not specified as traumatic Incomplete rotator cuff tear or rupture of right shoulder, not specified as traumatic Diagnosis 07/01/2020 01:32:00 PM [facility] [id number] Screening for malignant neoplasm of colo n Screening for malignant neoplasm of colon Problem 04/11/2021 12:00:00 AM EDT MEDENT ([facility]) [id number] Pure hypercholesterolemia Pure hypercholesterolemia Pr oblem 01/25/2021 12:00:00 AM EDT MEDENT ([facility]) [id number] Essential hypertension Essential hypertension Problem 01/25/2021 12:00:00 AM EDT MED[facility] ([facility]) [id number] Gastroesophageal reflux disease Gastroesophageal reflux disease Problem 12/25/2020 12:00:00 AM EDT [facility] ([facility]) K21.9 [id number] Gastroesophageal ref lux disease, unspecified whether esophagitis present Problem 06/12/2020 12:00:00 AM EST [facility] ([facility]) Surgeries/Procedures Procedure Description Date Indications Data Source(s) OFFICE OUTPATIENT VISIT 25 MINUTES 04/11/2021 12:00:00 AM EDT [facility] ([facility]) OFFICE OUTPATIENT VISIT 25 MINUTES 04/10/2021 12:00:00 AM EDT MED[facility] ([facility]) OFFICE OUTPATIENT VISIT 15 MINUTES 03/27/2021 12:00:00 AM EDT MEDENT ([facility]) PHYSICIAN TELEPHONE EVALUATION 11-20 MIN 03/27/2021 12 :00:00 AM EDT MEDENT ([facility]) Needle electromyography, each extremity, with related paraspinal areas, when performed, done with nerve conduction, amplitude and latency/velocity study; complete, five or more muscles studied, innervated by three or more nerves or four or more spinal levels (list separately in addition to the code for primary procedure). 01/25/2021 12:00:00 AM EDT MEDEN T ([facility]) Nerve Conduction 9-10 Studies 01/25/2021 12:00:00 AM E DT MEDENT ([facility] ) OFFICE CONSULTATION NEW/ESTAB PATIENT 60 MIN 12:00:00 AM EDT MED[facility] ([facility] ) OFFICE OUTPATIENT NEW 30 MINUTES 12/25/2020 12:00:00 A M EDT MED[facility] ([facility]) OFFICE OUTPATIENT VISIT 15 MINUTES 12/04/2020 12:00:00 AM EDT MEDENT ([facility] ) X-Ray Hip Unilateral With Pelvis 2-3 Views 11/02/2020 12:00:00 AM EDT MED[facility] ([facility] ) OFFICE OUTPATIENT NEW 45 MINUTES 11/02/2020 12:00:00 A M EDT MED[facility] ([facility] ) Results ID Date Data Source [id number] 08/14/2020 10:28:45 AM EST [facility], PCName: Abram WeemsAkankshaB: 1975Provider: Skye Preston: 08/14/2020 Reason For VisitAbram Ng is here today for lumbar spine. Abram Ng is a new patient. Patient reports increased pain for the past year, denies injury. Patient has had chiropractic treatments. Surgery DOS: 01/28/16. Surgery Description: Right L5-S1 microdiscectomy. The patient has not had a course of physical therapy for greater than 4 weeks. The patient has not had a course of NSAIDs for greater than 4 weeks. 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 2016 successful microdiscectomy with gradual return of symptoms from about 2018 the present now is enough where it bothers him every day he feels tightness over his right hip and leg and is wondering if there is anything more he can do. Results/Data2 views lumbar spine ordered obtained and interpreted indication pain. Findings minor degenerative changes seen at the lumbosacral junction otherwise unremarkable AssessmentChronic low back pain Plan X-Ray I Lumbosacral - 2 views (XRays were ordered, obtained and interpreted today inthe office. Indication: pain/dysfunction.); Status:Complete; Done: 14Aug2020 Perform:SOS14 (General); Due:[id number]; Last Updated By:Mee Cox; 08/14/2020 10:08:29 AM;Ordered; For:Right lumbar radiculopathy; Ordered By:Aquiles Preston; Physical therapy if no improvement follow-up and consider lumbar MRI Work / School NoteThe percentage of temporary impairment is 0%. The patient is working at this time. Signatures Electronically signed by : Aquiles Preston M.D.; Aug 14 2020 10:28AM EST (Author) Name Value Range Interpretation Code Description Data Patricia rce(s) Supporting Document(s) ID Date Data Source [id number] 08/08/2020 07:24:00 PM EST [facility] Name Value Range Interpretation Code Description Data [facility] rce(s) Supporting Document(s) URINALYSIS [facility] URINALYSIS SOURCE Clean Catch [facility] ital COLOR yellow NORMAL: Yellow [facility] ospital CLARITY clear NORMAL: Clear [facility] Specific gravity of Urine by Test strip 1.005 1.001 - 1.030 [facility] pH 6.5 5 - 9 [facility] Glucose [Mass/volume] in Urine by Test strip NORM NORMAL: Negat [facility] Bilirubin.total [Presence] in Urine by Test strip NEG NORMAL: Negative [facility] Ketones [Presence] in Urine by Test strip NEG NORMAL: Negative [facility] Protein [Mass/volume] in Urine by Test strip NEG NORMAL: Negat [facility] Nitrite [Presence] in Urine by Test strip NEG NORMAL: Negative [facility] BLOOD NEG NORMAL: Negative [facility] Leukocyte esterase [Presence] in Urine by Test strip NEG TONY L: Negative [facility] Urobilinogen [Mass/volume] in Urine by Test strip NOR less sánchez n 1.0 mg/dL [facility] MICROSCOPIC Not Indicate [facility] ID Date Data Source [id number] 08/08/2020 01:27:00 PM EST [facility] Name Value Range Interpretation Code Description Data Patricia rce(s) Supporting Document(s) COMPREHENSIVE METABOLIC PANEL [facility] COMPREHENSIVE METABOLIC PANEL Sodium [Moles/volume] in Serum or Plasma 139 mEq/L 134 - 153 [facility] Potassium [Moles/volume] in Serum or Plasma 4.4 mEq/L 3.6 - 5.0 [facility] Chloride [Moles/volume] in Serum or Plasma 100 mEq/L 98 - 107 [facility] Carbon dioxide, total [Moles/volume] in Serum or Plasma 29 MEQ/L 22 - 30 [facility] Glucose [Mass/volume] in Serum or Plasma 98 MG/DL 70 - 99 [facility] BUN 19 MG/DL 7 - 21 [facility] Creatinine [Mass/volume] in Serum or Plasma 1.2 MG/DL 0.7 - 1.5 [facility] BUN/CREAT 16 8 - 27 [facility] Protein [Mass/volume] in Serum or Plasma 7.4 G/DL 6.3 - 8.2 [facility] Albumin [Mass/volume] in Serum or Plasma 5.1 G/DL 3.9 - 5.0 H [facility] Globulin [Mass/volume] in Serum by calculation 2.3 GM/DL 2.4 - 3.2 L [facility] A/G RATIO 2.2 0.8 - 2.0 H [facility] Calcium [Mass/volume] in Serum or Plasma 9.6 MG/DL 8.4 - 10.2 [facility] Bilirubin.total [Mass/volume] in Serum or Plasma 0.7 MG/DL 0.2 - 1.3 [facility] Alkaline phosphatase [Enzymatic activity/volume] in Serum or Plasma 54 U/L 38 - 126 [facility] Aspartate aminotransferase [Enzymatic activity/volume] in Serum or Plasma 37 U/L 5 - 40 [facility] Alanine aminotransferase [Enzymatic activity/volume] in Seru m or Plasma 35 U/L 7 - 56 [facility] Anion gap 3 in Serum or Plasma 10.0 mmol/L 8.0 - 16.0 [facility] AGE 45 yrs [facility] NON-AA GFR >60 mL/min [facility] AFR AMER GFR >60 mL/min [facility] Male GFR In terprentation 20-49 yrs >60 mL/min Normal 50-59 yrs >56 mL/min Normal 60-69 yrs >49 mL/min Normal 70-79yrs >42 mL/min Normal 80 and above >35 mL/min Normal Female GFR Interpretation 20-39 yrs >60 mL/min Normal 40-49 yrs >58 mL/min Normal 50-59 yrs >51 mL/min Normal 60-69 yrs >45 mL/min Normal 70-79 yrs >39 mL/min Normal 80 and above >32 mL/min Normal ID Date Data Source [id number] 08/08/2020 12:59:00 PM EST [facility] Name Value Range Interpretation Code Description Data Patricia rce(s) Supporting Document(s) CBC NO DIFF [facility] ital COMPLETE BLOOD COUNT Leukocytes [#/volume] in Blood by Automated count 7.1 10^3/uL 4.2 - 1 1.0 [facility] Erythrocytes [#/volume] in Blood by Automated count 4.75 10^6/uL 4. 50 - 6.30 [facility] Hemoglobin [Mass/volume] in Blood 14.9 g/dL 14.0 - 16.0 [facility] Hematocrit [Volume Fraction] of Blood by Automated count 42.4 % 4 1.0 - 51.0 [facility] Erythrocyte mean corpuscular volume [Entitic volume] by Auto mated count 89.3 fL 80.0 - 94.0 [facility] Erythrocyte mean corpuscular hemoglobin [Entitic mass] by Automated count 31.4 pg 27.0 - 34.0 [facility] Erythrocyte mean corpuscular hemoglobin concentration [Mass/volume] by Automated count 35.1 g/dL 31.0 - 36.0 [facility] Erythrocyte distribution width [Ratio] by Automated count 11.8 % 11.5 - 14.8 [facility] Platelets [#/volume] in Blood by Automated count 222 10^3/uL 150 - 45 0 [facility] Platelet mean volume [Entitic volume] in Blood by Automated count 10.3 fL 7.4 - 10.4 [facility] ID Date Data Source [id number] 07/09/2020 10:03:00 AM EST [facility] [address] [place] [address] PHONE: [phone] FAX: [phone] Name .................. : BERENICE VALVERDE Acct Number.................. : [id number] ROOM. ................. : MR Number ................... : [id number] Stay type ............. : O/P Discharge Date......... ... : 07/06/20 Admit Date ....... .. : 07/06/20 Admit Phys .................... : TOMER Date of ....... : 1975 Family Phys ................... : TIO ROJAS Phone .................. : [phone] Age ................................ : 44 Film# .................. .:[id number] Sex ................................. : M Unsigned transcriptions are preliminary reports and do not represent a medical or legal document MRI UPP EXT ANY JT W/O CON [place] [id number] COMPLETE:07/06/20 12:18 RLH 463 (REASON FOR PROCESS: L SHOULDER PAIN,WEAKNESS MRI OF THE LEFT SHOULDER WITHOUT CONTRAST: CLINICAL HISTORY: Left shoulder pain and weakness. History of left shoulder surgery in 2017. COMPARISON: Left shoulder radiographs from 07/01/20. FINDINGS: Rotator cuff: There is a near full thickness rim-rent tear of the supraspinatus constituent of the rotator cuff in the setting of moderate supraspinatus tendinosis. Mild infraspinatus and subscapularis tendinosis are also present. A distal subscapularis split is indicated by the presence of medial subluxation of the long head of the biceps tendon anterior split, identified on series 301, images 13-15. Rotator cuff muscle bulk and signal are normal and there is no fluid in the subacromial/subdeltoid bursa. Osseous structures: Type 2 anterior acromion. Mild acromioclavicular osteoarthritis. No fracture. Biceps tendon: In the distal bicipital groove, the long head of the biceps tendon is visible. More proximally, the tendon appears enlarged and contains intermediate T2 signal compatible with moderate tendinosis. Glenohumeral joint: No findings of dislocation. No SLAP tear. Nondisplaced posterior labral tear with an associated 5 mm paralabral cyst on series 301 image 9. No glenohumeral joint effusion. A 7 mm hypointense focus is present anterior-superior within the glenohumeral joint on series 501, image 6 and series 701, image 12, potentially a calcified chondral fragment, although no donor site is identified. There is questionable irregularity of the hyaline cartilage of the glenoid anteriorly. IMPRESSION: Page 1 of 2 [place] [address] PHONE: [phone] FAX: [phone] Name .................. : BERENICE VALVERDE Acct Number.................. : [id number] ROOM. ................. : MR Number ................... : [id number] Stay type ............. : O/P Discharge Date......... ... : 07/06/20 Admit Date ......... : 07/06/20 Admit Phys .................... : TOMER Date of ....... : 1975 Family Phys ................... : TIO ROJAS Phone .................. : [phone] Age ................................ : 44 Film# .................. .:[id number] Sex ................................. : M Unsigned transcriptions are preliminary reports and do not represent a medical or legal document MRI UPP EXT ANY JT W/O [place] [id number] COMPLETE:07/06/20 12:18 RL 463 (REASON FOR PROCESS: L SHOULDER PAIN,WEAKNESS 1. Substantial rim-rent tear of the supraspinatus constituent of the rotator cuff in the setting of moderate tendinosis. 2. Distal subscapularis split, subscapularis tendinosis. 3. Medial subluxation of the long head of the biceps tendon, moderate size tendinosis. 4. 7 mm presumed calcified chondral fragment within the glenohumeral joint, partial thickness anterior glenoid hyaline surface irregularity. 5. Nondisplaced posterior labral tear, small adjacent paralabral cyst. Electronically Reviewed and Signed By Hector Pritchard MD , 07/09/20 10:03, APM Transcribe Initials: ISAIAH , Transcribe Date: 07/06/20 17:28, Dictation Date: Copy for: MIMI Murphy via fax Copy for: [address] [place] [address] REC Page 2 of 2 Name Value Range Interpretation Code Description Data Patricia rce(s) Supporting Document(s) ID Date Data Source [id number] 07/02/2020 09:32:00 AM EST [facility] [address] [place] [address] PHONE: [phone] FAX: [phone] Name .................. : BERENICE VALVERDE Acct Number.................. : [id number] ROOM. ................. : Number ................... : [id number] Stay type ............. : O/P Discharge Date......... ... : 07/01/20 Admit Date ....... .. : 07/01/20 [facility] ....... : 1975 Family Phys ................... : TIO ROJAS Phone .................. : [phone] Age ................................ : 44 Film# .................. .:[id number] Sex ................................. : M Unsigned transcriptions are preliminary reports and do not represent a medical or legal document SHOULDER COMP-2 OR MORE S L [id number] COMPLETE:07/01/20 13:39 111 (REASON FOR PROCESS: PAIN LEFT SHOULDER SERIES: FINDINGS: There is normal alignment and position of the bones of the left shoulder. No evidence for acute bony injury is identified. The soft tissues also appear normal. IMPRESSION: Negative left shoulder. Electronically Reviewed and Signed By Monroe Boykin MD , 07/02/20 09:32, TDS Transcribe Initials: DZ , Transcribe Date: 07/01/20 15:27, Dictation Date: Copy for: MIMI Murphy via fax Copy for: [facility] REC Page 1 of 1 Name Value Range Interpretation Code Description Data Patricia rce(s) Supporting Document(s) ID Date Data Source [id number] 06/22/2020 12:00:00 AM EST [facility] Name Value Range Interpretation Code Description Data Patricia rce(s) Supporting Document(s) 2018-nCoV RNA XXX GHAZALA+probe-Imp [facility] This lab was ordered by [facility] and reported by [employer]. ID Date Data Source [id number] 05/15/2020 09:50:31 AM EDT [facility] Vital SignsTemperature: 96.9FB lood Pressure: 126/78 Patient History Medical History:HypertensionHigh cholesterolPTSDSurgical History:Left and right shoulder tore laboram repairMicrodiscectomy- back surgeryKidney stone removalHemroid surgeryPRK eye surgeryGum graph in mouthFamily History:Social/Personal History: Problem list reviewed during this update.No known problems.Current Medications: * TRAZADONE * LIPATOR * CHLORTHALIDONE * OMEPROZOLE * LOTREL * FLUOXETINE Medication list reviewed during this update.Allergy list reviewed during this update.No known allergies.Past Medical History:(reviewed - no changes required) HypertensionHigh cholesterolPTSD Dental Chart: Procedures:Type - CDT Code - Description B - (D1110) Prophylaxis, adult (Performed by Gabby Dallas RDH) B - (D0120) Periodic oral evaluation - established patient (Performed by Jose D Bedoya DDS) Treatments:Type - CDT Code - Description T - (D2391) Resin-based composite - one surface, posterior on Tooth # 30 on Tooth Surface O (Performed by Gabby Dallas R[facility]) Chart Notes:mjain (May 15 2020 2:23PM): [facility](-). CC: none. Reviewed Xrays. Exam: no caries detected.There is a marginal defect on the existing quaker both buccaly and lingually. Will seal with composite, OCS: WNL, IO/ EO completed, No significant hard findings upon clinical exam.Additional PPE requirements due to COVID-19 in the dental setting, N95, surgical mask, hair covering, gown and shieldPt was cooperative. OHI given Referral: N/A NV:quaker, seal demarco on existing quaker #30Watson Gabby CHAVES by michelle (05/15/2020 2:23 PM): ; leigh (May 15 2020 10:22AM): Additional PPE requirements due to COVID-19 in the dental setting, N95, surgical mask, hair covering, gown. RMH with patient. No problems or concerns today. Discussed that crowns will eventually need to be replaced. Crowns are old and there is recessation. Pt. complains of #30 being sharp, DrCalos will do an occ quaker.Oral cancer screening-no significant findings. Tempature:96.9Adult prophy- handscaled and used cavitron in all quads-pt. tolerated well, persian- mint prophy paste, flossOH-Patient brushes once/day and is not flossing regularl y. Pt. uses electric toothbrushLT gen marginal biofilm and marginal/introproximal calculus on LA. Moderate staining. Tissues are red, inflammed, and bleeding in sextant 5OHI- Advise to brush 2x a day and floss everyday. Recommended brushing with a light sole buffer due to recessation. Recommended Listerine ZeroPatient is cooperative. NV- 6 month recall/fillingsWGabby palma RDH by leigh (05/15/2020 10:22 AM): Tooth Notes and Watches: Assessment & Plan Medications:TRAZADONELIPATORCHLORTHALIDONEOMEPROZOLELOTRELFLUOXETINEAllergies:No Known Allergies (updated 05/15/2020) Name Value Range Interpretation Code Description Data Patricia rce(s) Supporting Document(s) Procedure Social History Code Duration Value Status Description Data Source(s ) Smoking 06/12/2020 12:00:00 AM EST Never Smoker completed Never S moker eCW1 ([facility]) Smoking 06/12/2020 12:00:00 AM EST Never Smoker completed Never S moker eCW1 ([facility]) Smoking 06/12/2020 12:00:00 AM EST Never Smoker completed Never S moker eCW1 ([facility]) Smoking 06/12/2020 12:00:00 AM EST Never Smoker completed Never S moker eCW1 ([facility]) Smoking 06/12/2020 12:00:00 AM EST Never Smoker completed Never S moker eCW1 ([facility]) Smoking 06/12/2020 12:00:00 AM EST Never Smoker completed Never S moker eCW1 ([facility]) Vital Signs ID Date Data Source UNK Name Value Range Interpretation Code Description Data Source(s) Body mass index (BMI) [Ratio] 30.1 kg/m2 30.1 k g/m2 [facility] ([facility]) Systolic blood pressure 116 mm[Hg] 116 mm[Hg] [facility] Diastolic blood pressure 62 mm[Hg] 62 mm[Hg] [facility] ([facility]) Body height 67 [in_i] 67 [in_i] [facility] ([facility]) 5'7" Body weight 192.12 [lb_av] 192.12 [lb_av] [facility] ([facility]) Body temperature 98.7 [degF] 98.7 [degF] [facility] ([facility]) [place] body weight 148 [lb_av] 148 [lb_av] [facility] T ([facility]) Body weight 87.148 kg 87.148 kg [facility] ([facility]) Body surface area Derived from formula 1.99 m2 1.99 m2 [facility] ([facility]) Body height 67 [in_i] 67 [in_i] [facility] 5'7" Body weight 188.06 [lb_av] 188.06 [lb_av] [facility] ([facility]) Systolic blood pressure 122 mm[Hg] 122 mm[Hg] M [facility] ([facility]) Diastolic blood pressure 76 mm[Hg] 76 mm[Hg] [facility] ([facility]) Heart rate 71 /min 71 /min [facility] ([facility]) Body mass index (BMI) [Ratio] 29.5 kg/m2 29.5 k g/m2 [facility] ([facility]) Body weight 85.305 kg 85.305 kg [facility] ([facility]) Body temperature 97.0 [degF] 97.0 [degF] [facility] ([facility]) Body height 67 [in_i] 67 [in_i] [facility] ([facility]) 5'7" Body weight 193.00 [lb_av] 193.00 [lb_av] [facility] ([facility]) Systolic blood pressure 125 mm[Hg] 125 mm[Hg] M [facility] ([facility]) Diastolic blood pressure 80 mm[Hg] 80 mm[Hg] [facility] ([facility]) Heart rate 56 /min 56 /min [facility] ([facility]) Body mass index (BMI) [Ratio] 30.2 kg/m2 30.2 k g/m2 [facility] ([facility]) Body weight 87.545 kg 87.545 kg [facility] ([facility]) Body temperature 97.2 [degF] 97.2 [degF] [facility] ([facility]) Body temperature 97.1 [degF] 97.1 [degF] [facility] ([facility]) Body height 67.5 [in_i] 67.5 [in_i] [facility] ([facility]) 5'7.50" Body weight 191.50 [lb_av] 191.50 [lb_av] [facility] T ([facility]) Body mass index (BMI) [Ratio] 29.5 kg/m2 29.5 k g/m2 [facility] ([facility]) Systolic blood pressure 120 mm[Hg] 120 mm[Hg] M EDENT ([facility]) Diastolic blood pressure 86 mm[Hg] 86 mm[Hg] [facility] ([facility]) Heart rate 76 /min 76 /min [facility] ([facility]) Body temperature 96.4 [degF] 96.4 [degF] [facility] ([facility]) Oxygen saturation in Arterial blood by Pulse oximetry 99 % 99 % [facility] ([facility]) Body weight 187.00 [lb_av] 187.00 [lb_av] [facility] T ([facility]) Body weight 84.823 kg 84.823 kg [facility] ([facility]) Body height 67 [in_i] 67 [in_i] [facility] ([facility]) 5'7" Body mass index (BMI) [Ratio] 29.3 kg/m2 29.3 k g/m2 [facility] ([facility]) Body surface area Derived from formula 1.97 m2 1.97 m2 [facility] ([facility]) Body temperature 97.2 [degF] 97.2 [degF] [facility] ([facility]) Body temperature 97.4 [degF] 97.4 [degF] [facility] ([facility]) Body weight 196.8 [lb_av] 196.8 [lb_av] eCW1 ([facility]) Heart rate 67 /min 67 /min eCW1 ([facility]) Body height [in_i] eCW1 ([facility]) Respiratory rate 17 /min 17 /min eCW1 ([facility]) Body mass index (BMI) [Ratio] 30.82 kg/m2 30.82 kg/m2 eCW1 ([facility]) Body temperature 97.7 [degF] 97.7 [degF] eCW1 ( [facility]) Systolic blood pressure 115 mm[Hg] 115 mm[Hg] e CW1 ([facility]) Diastolic blood pressure 72 mm[Hg] 72 mm[Hg] eCW1 ([facility])
[2021-05-28] MEDS ORDERED: ROCURONIUM BROMIDE 50 MG/5 ML VIAL As Ordered ONE (08:52)
[2021-05-28] MEDS ORDERED: fentaNYL 250 MCG/5 ML INJECTION (J3010) As Ordered ONE (08:52)
[2021-05-28] MEDS ORDERED: propofoL 200 MG/20 ML VIAL As Ordered ONE (08:52)
[2021-05-28] MEDS ORDERED: LIDOCAINE 2% 100MG/5ML SDV (FOR ANES.) As Ordered ONE (08:52)
[2021-05-28] MEDS ORDERED: MIDAZOLAM INJ 2MG/2ML VIAL (J2250 PER 1MG) As Ordered ONE (08:52)
[2021-05-28 08:57] LABS: ALBUMIN 3.7 GM/DL (3.2-5.2); ALT/SGPT 44 U/L (12-78); BILIRUBIN,TOTAL 0.4 MG/DL (0.2-1.0); BLOOD UREA NITROGEN 13 MG/DL (7-18); CALCIUM LEVEL 9.1 MG/DL (8.5-10.1); CARBON DIOXIDE LEVEL 31 MEQ/L (21-32); CHLORIDE LEVEL 106 MEQ/L (98-107); CREATININE FOR GFR 1.32 MG/DL (0.70-1.30); GLOMERULAR FILTRATION RATE > 60.0 (>60); GLUCOSE, FASTING 102 MG/DL (70-100); POTASSIUM SERUM 4.7 MEQ/L (3.5-5.1); SODIUM LEVEL 141 MEQ/L (136-145); TOTAL PROTEIN 6.8 GM/DL (6.4-8.2)
[2021-05-28] MEDS ORDERED: BUPIVACAINE HCL 0.25% 30ML VIAL As Ordered ONE (09:55)
[2021-05-28] MEDS ORDERED: METOCLOPRAMIDE INJ 10MG/2ML VIAL (J2765 PER 1) As Ordered ONE (10:29)
[2021-05-28] MEDS ORDERED: ONDANSETRON 4MG/2ML VIAL As Ordered ONE (10:29)
[2021-05-28] MEDS ORDERED: SUGAMMADEX SODIUM 500 MG/5 ML VIAL (BRIDION) As Ordered ONE (10:29)
[2021-05-28] MEDS ORDERED: KETOROLAC 60MG 2ML VIAL As Ordered ONE (10:29)
[2021-05-28] MEDS ORDERED: ACETAMINOPHEN 1000MG 100ML IV BTL (OFIRMEV) (J0131 PER 10MG) As Ordered ONE (10:29)
[2021-05-28] MEDS ORDERED: dexameTHASONE 4 MG/ML 1ML VIAL (J1100 PER 1MG) As Ordered ONE (10:29)
--- NOTE | 2021-05-28 10:39 | ECGEPIP ---
[facility] Test Date: 2021-05-28 Pat Name: ABRAM NG Department: Room: - Gender: Male Lead Informatica Developer: LORI : 1975 Requested By: Erasto Andrade Order Number: [id number] Reading MD: Mary Gomez Measurements Intervals Critz Rate: 57 P: 4 NV: 156 QRS: 48 QRSD: 86 T: 12 QT: 412 QTc: 401 Interpretive Statements Poor data quality, interpretation may be adversely affected Sinus bradycardia NSSTTW NO PRIOR Electronically Signed on 05-28-2021 10:39:25 EST by Mary Gomez
[2021-05-28] MEDS ORDERED: ONDANSETRON 4MG/2ML VIAL IV PRN (12:00)
[2021-05-28] MEDS ORDERED: LR 1,000 ML IV SCH (12:00)
[2021-05-28] MEDS ORDERED: fentaNYL 100 MCG/2 ML INJECTION (J3010) IV PRN (12:00)
[2021-05-28] MEDS ORDERED: oxyCODONE 5MG TAB PO PRN (12:00)
[2021-05-28] MEDS ORDERED: IBUPROFEN 600MG TAB PO PRN (12:50)
[2021-05-28] MEDS ORDERED: ACETAMINOPHEN TAB 650MG DOSE (2X325MG) PO PRN (12:50)
[2021-05-28] MEDS ORDERED: NORCO, ANEXSIA 5/325MG TABLET (HYDROcodone/ACETAMINOPHEN) PO PRN (12:50)
[2021-05-28 13:02] VITALS: BP 132/71
--- NOTE | 2021-06-01 19:29 | RO ---
OPERATIVE NOTE DATE OF OPERATION: 05/28/2021 PREOPERATIVE DIAGNOSIS: Symptomatic gallstones. POSTOPERATIVE DIAGNOSIS: Symptomatic gallstones. PROCEDURE PERFORMED: Laparoscopic cholecystectomy. SURGEON: Toni Nava MD MACHINE PLATE STACKER: None ANESTHESIA: General. INDICATIONS FOR THE PROCEDURE: The patient is a 45-year-old man with a history of episodic upper abdominal pain. His worst attack followed an episode of ingestion of pizza. Imaging included an ultrasound that showed a sludge ball versus cholelithiasis within the gallbladder. His symptoms were felt to be consistent with a biliary etiology and he is now for a laparoscopic cholecystectomy. OPERATIVE PROCEDURE: The patient was brought to the operating room and placed on the table in a supine position. He was placed under general endotracheal anesthesia. TEDs and sequentials were utilized. The patient's abdomen was prepped and draped in a sterile fashion. 1/4% Marcaine was infiltrated at the trocar sites as needed. Initially a short transverse incision was made in the left upper quadrant. A Veress needle was inserted and after a positive hanging drop test, the abdomen was inflated with carbon dioxide gas. After insufflating the abdomen, the 5 mm port was placed over the scope and advanced through the abdominal wall without difficulty. Initial exam showed no evidence of trocar or Veress needle injury. The liver appeared normal. The gallbladder appeared somewhat thickened. An 11 mm port was placed above the umbilicus. Two 5 mm ports were placed in the right upper quadrant. The patient was tilted to a reverse Trendelenburg position and rolled slightly to the left. Graspers were inserted. The fundus of the gallbladder was elevated. There were multiple adhesions of the surrounding omentum to the gallbladder. These were lysed with the hook cautery. As the gallbladder was freed from the adhesions, it was possible to elevate the gallbladder further. The gallbladder did appear somewhat thickened but no acutely inflamed. The dissection was then carried out at the gallbladder neck. The pericholecystic tissues were opened using the hook cautery. With careful dissection, the cystic duct and cholecystic artery were both clearly identified and dissected free. Both structures were then doubly clipped with hemoclips and divided. The gallbladder was then dissected free from the gallbladder bed using cautery dissection. A second arterial branch coming along the gallbladder bed was identified, clipped and divided. The gallbladder was removed without perforation and placed in an Endopouch. The right upper quadrant was inspected and irrigated and there was no evidence of bleeding or bile leak. The patient was returned to a flat position. The abdomen was deflated and the trocars were removed. The gallbladder was recovered through the supraumbilical site which necessitated extending the incision slightly. There were no definite stones palpable within the gallbladder and this was sent for permanent pathology. The fascia at the supraumbilical site was closed with a running suture of 2-0 PDS. The skin incisions were all closed with buried 4-0 Vicryl and Steri-Strips. Light dressings were applied. The patient tolerated the procedure well without apparent complication. He was awakened in the operating room, extubated and moved to the recovery room in stable condition.
== END 2021-05-28 13:23 | disposition home or self-care (01) ==
LOC: M SDC 08:08
PROVIDERS: ATTEND Surgery
DX: K81.1 Chronic cholecystitis (principal); I10 Essential (primary) hypertension; E78.00 Pure hypercholesterolemia, unspecified; R14.0 Abdominal distension (gaseous); M19.90 Unspecified osteoarthritis, unspecified site; F41.9 Anxiety disorder, unspecified; G47.30 Sleep apnea, unspecified; R06.83 Snoring; Z99.89 Dependence on other enabling machines and devices; Z79.899 Other long term (current) drug therapy
CPT/HCPCS: 36415; 47562; 80053; 88304; 93005; J0131; J1100; J1885; J2250; J2405; J2765; J3010

== ENCOUNTER → 2021-06-21 | Outpatient (CLI) | payer OTHER ==
[~2021-06-21] MED LIST changes: -ATOR1TAB21; +ATOR1TAB21 PO; -LIDOCAINE 1% MDV 20ML VIAL SQ PRN; -LR 1,000 ML IV ONE
== END ==
LOC: M LABSMTC 09:44
PROVIDERS: ATTEND Anesthesiology
DX: Z01.812 Encounter for preprocedural laboratory examination (principal); Z20.822 Contact with and (suspected) exposure to COVID-19

== ENCOUNTER 2021-06-26 10:28 | Day surgery (SDC) | payer OTHER ==
[~2021-06-26] VITALS: Ht 170.2 cm; Wt 84.8 kg
[~2021-06-26 10:28] MED LIST changes: +LIDOCAINE 2% 100MG/5ML SDV (FOR ANES.) As Ordered ONE; +NS 1,000 ML IV ONE; +propofoL 200 MG/20 ML VIAL As Ordered ONE
--- OUTSIDE RECORDS SUMMARY | 2021-06-26 10:34 | CCD | Continuity of Care Document ---
Author Author Jonathan BELTRE M.D. Organization Unknown Address [address], [address] [place] [address] Phone [phone] Care Team Providers Care Bottle Inspector Name Role Phone Yen Winkler AUTM Bonnie Louis N.P. AUTM [phone] Problems Active Problems Provider Date Essential hypertension [...] mouth every 6 hours as needed Unknown 00 Tylenol Cold & Head Severe Congestion 5-325-200mg Tablets as needed Unknown Multi Complete/Iron Tablets 1 tab by mouth every day Unknown History Medications Hydrocodone Bitartrate/Acetaminophen 5-325mg Tablets 1 tablet orally every 6 hours as needed for severe pain 12tabs Toni Beltre M.D. 05/28/2021 - 06/04/2021 Immunizations Description No Information Available Vital Signs Date Vital Result Comment 06/05/2021 8:22am BP Systolic 114 mmHg BP Diastolic 70 mmHg Body Temperature 98.2 F Height 67 inches 5'7" Weight 195.38 lb BMI (Body Mass Index) 30.6 kg/m2 [place] Body Weight 148 lb Weight 88.622 kg BSA (Body Surface Area) 2.00 m2 04/29/2021 2:12pm BP Systolic 116 mmHg BP Diastolic 62 mmHg Body Temperature 98.7 F Height 67 inches 5'7" Weight 192.12 lb BMI (Body Mass Index) 30.1 kg/m2 [place] Body Weight 148 lb Weight 87.148 kg BSA (Body Surface Area) 1.99 m2 Results Test Acquired Date Facility Test Result H/L Range Note Laboratory test finding 05/28/2021 [facility] Main Lab [address] [place], [place] [id number] [phone] Pathology Request For Service (SEE NOTE) 1 Comprehensive Metabolic Profil 05/28/2021 [facility] Main Lab [address] [place], [place] [id number] [phone] Glucose, Fasting 102 mg/dL High 70-100 Blood Urea Nitrogen 13 mg/dL Normal 7-18 Creatinine For GFR 1.32 mg/dL High 0.70-1.30 Glomerular Filtration Rate > 60.0 Normal >60 2 Sodium Level 141 mEq/L Normal 136-145 Potassium Serum 4.7 mEq/L Normal 3.5-5.1 Chloride Level 106 mEq/L Normal 98-107 Carbon Dioxide Level 31 mEq/L Normal 21-32 Anion Gap 4 mEq/L Low 8-16 Calcium Level 9.1 mg/dL Normal 8.5-10.1 Ast/Sgot 26 U/L Normal 7-37 Alt/SGPT 44 U/L Normal 12-78 Alkaline Phosphatase 62 U/L Normal 45-117 Bilirubin,Total 0.4 mg/dL Normal 0.2-1.0 Total Protein 6.8 GM/DL Normal 6.4-8.2 Albumin 3.7 GM/DL Normal 3.2-5.2 Albumin/Globulin Ratio 1.2 Normal 1 FINAL DIAGNOSIS Gallbladder, cholecystectomy: Mild chronic cholecystitis. 05/29/2021 - 102 CLINICAL DIAGNOSIS Symptomatic gallstones 05/29/2021734 GROSS DIAGNOSIS Received in formalin labeled "gallbladder and contents" and consists of a gallbladder measuring 7.5 x 3.0x 2.8 cm. The serosal surface is smooth and unremarkable. Sectioning of the specimen reveals no grossly apparent gallstones. The mucosal wall is thin and measures up to 0.2 cm. in greatest thickness. The mucosal lining is velvety green. The contents are liquidy with green tinge. Representatively submitted in one block. 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 K80.10 Calculus of gallbladder w chronic cholec yst w/o obstruction Assessments Date Code Description Provider 06/05/2021 K81.1 Chronic cholecystitis Toni george M.D. 06/05/2021 Z48.815 Encounter for surgic al aftercare following surgery on the digestive system Toni Beltre M.D. 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 05/28/2021 K81.1 Chronic cholecystitis Toni george M.D. 04/29/2021 K80.10 Calculus of gallblad azar with chronic cholecystitis without obstruction Toni Beltre M.D. Plan of Treatment 06/05/2021 - Toni Beltre M.D.* K81.1 Chronic cholecystitis* Comments:* Patient was counseled that he should continue to avoid any strenuous physical activity through the first 2 weeks of convalescence. After that he can gradually resume all normal activities as tolerated. He can return to see me on an as-needed basis. * Z48.815 Encounter for surgical aftercare following surgery on the digestive system * Z90.49 Acquired absence of other specified parts of digestive tract Functional Status Description No Information Available Mental Status Description No Information Available Referrals Refer to Dr Reason for Referral Status Appt Date Toni Beltre M.D. GALLBLADDER DISEASE Scheduled 04/29 [facility] [address] [place] [address] [phone]
--- OUTSIDE RECORDS SUMMARY | 2021-06-26 10:34 | CCD | Continuity of Care Document ---
Author Author Jonathan BELTRE M.D. Organization Unknown Address [address] [facility], [address] [place] [address] Phone [phone] Care Team Providers Care Timber Robber Name Role Phone Yen Winkler AUTM [phone] Bonnie Louis N.P. AUTM [phone] Problems Active Problems Provider Date Essential hypertension [...] lb BMI (Body Mass Index) 30.6 kg/m2 [place] Body Weight 148 lb Weight 88.622 kg BSA (Body Surface Area) 2.00 m2 04/29/2021 2:12pm BP Systolic 116 mmHg BP Diastolic 62 mmHg Body Temperature 98.7 F Height 67 inches 5'7" Weight 192.12 lb BMI (Body Mass Index) 30.1 kg/m2 [place] Body Weight 148 lb Weight 87.148 kg BSA (Body Surface Area) 1.99 m2 Results Test Acquired Date Facility Test Result H/L Range Note Laboratory test finding 05/28/2021 [facility] Main Lab [address] [place], [place] [id number] [phone] Pathology Request For Service (SEE NOTE) 1 Comprehensive Metabolic Profil 05/28/2021 [facility] Main Lab [address] [place], [place] [id number] [phone] Glucose, Fasting 102 mg/dL High 70-100 Blood [...] submitted in one block. 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 K80.10 Calculus [...] Toni Beltre M.D. GALLBLADDER DISEASE Scheduled 04/29 [facility] [address] [place] [address] [phone]
--- OUTSIDE RECORDS SUMMARY | 2021-06-26 10:34 | CCD | Continuity of Care Document ---
Author Author Jonathan BELTRE M.D. Organization Unknown Address [address] [facility], [address] [place] [address] Phone [phone] Care Team Providers Care Him Coder Name Role Phone Yen Winkler AUTM [phone] Bonnie Louis N.P. AUTM [phone] Problems Active Problems Provider Date Essential hypertension [...] lb BMI (Body Mass Index) 30.6 kg/m2 [place] Body Weight 148 lb Weight 88.622 kg BSA (Body Surface Area) 2.00 m2 04/29/2021 2:12pm BP Systolic 116 mmHg BP Diastolic 62 mmHg Body Temperature 98.7 F Height 67 inches 5'7" Weight 192.12 lb BMI (Body Mass Index) 30.1 kg/m2 [place] Body Weight 148 lb Weight 87.148 kg BSA (Body Surface Area) 1.99 m2 Results Test Acquired Date Facility Test Result H/L Range Note Laboratory test finding 05/28/[address] [facility] Main Lab [address] [place], [place] [id number] [phone] Pathology Request For Service (SEE NOTE) 1 Comprehensive Metabolic Profil 05/28/2021 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 K80.10 Calculus of gallbladder w chronic cholec yst w/o obstruction Assessments Date Code Description Provider 06/05/2021 K81.1 Chronic cholecystitis Toni george M.D. 06/05/2021 Z48.815 Encounter for surgic al aftercare following surgery on the digestive system Toni Beltre M.D. 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 04/29/2021 K80.10 Calculus of gallblad azar [...] to Reason for Referral Status Appt Date Toni Beltre M.D. GALLBLADDER DISEASE Scheduled 04/29 [facility] [address] [place] [address] [phone]
--- OUTSIDE RECORDS SUMMARY | 2021-06-26 10:34 | CCD | Continuity of Care Document ---
Author Author Jonathan BELTRE M.D. Organization Unknown Address [address] [facility], [address] [place] [address] Phone [phone] Care Team Providers Care Nut And Bolt Assembler Name Role Phone Yen Winkler AUTM [phone] Bonnie Louis N.P. AUTM [phone] Problems Active Problems Provider Date Essential hypertension [...] lb BMI (Body Mass Index) 30.6 kg/m2 [place] Body Weight 148 lb Weight 88.622 kg BSA (Body Surface Area) 2.00 m2 04/29/2021 2:12pm BP Systolic 116 mmHg BP Diastolic 62 mmHg Body Temperature 98.7 F Height 67 inches 5'7" Weight 192.12 lb BMI (Body Mass Index) 30.1 kg/m2 [place] Body Weight 148 lb Weight 87.148 kg BSA (Body Surface Area) 1.99 m2 Results Test Acquired Date Facility Test Result H/L Range Note Laboratory test finding 05/28/2021 [facility] Main Lab [address] [place], [place] [address] [phone] Pathology Request For Service (SEE NOTE) 1 Comprehensive Metabolic Profil 05/28/2021 [facility] Main Lab [address] [place], [place] [address] [phone] Glucose, Fasting 102 mg/dL High 70-100 Blood [...] Little GFR Left ESRD 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 Plan of Treatment 04/29/2021 - Toni Beltre M.D.* K80.10 Calculus of gallbladder with chronic cholecystitis without obstruction* Comments:* Patient was counseled that his symptoms do sound consistent with biliary colic. He has an ultrasound that shows debris within the gallbladder which the radiologist said could represent a sludge ball or gallstones. I think a cholecystectomy is warranted. I described the procedure to the patient in some detail. I have recommended a standard laparoscopic cholecystectomy. Risks of the procedure were discussed with the patient and these include but are not limited to bleeding, infection, scarring, adverse drug reaction, need for further surgery, injury of internal organ, and hernia. Patient had an opportunity to ask questions. These were answered to the best of my ability. He desires to proceed with the surgery and will be scheduled for a laparoscopic cholecystectomy. Functional Status Description No Information Available Mental Status Description No Information Available Referrals Refer to Reason for Referral Status Appt Date Toni Beltre M.D. GALLBLADDER DISEASE Scheduled 04/29 [facility] [address] [place] [address] [phone]
--- OUTSIDE RECORDS SUMMARY | 2021-06-26 10:35 | CCD ---
Author Author [facility] Organization [facility] Address Unknown Phone Unavailable Care Team Providers Care Senior Examiner Name Role Phone Aguilar Beavers MD Unavailable [...] Guillermo Unavailable Unavailable Baum, Guillermo Unavailable Unavailable MCELHERAN, JUVENTINO PA Unavailable Unavailable [...] Unavailable Unavailable MCELHERAN, JUVENTINO PA Unavailable Unavailable Natacha PRESTON MD Unavailable Unavailable [...] Unavailable Unavailable Natacha PRESTON MD Unavailable Unavailable Natcaha PRESTON MD Unavailable Unavailable Natacha PRESTON MD [...] Unavailable KARY, E AQUILES MD Unavailable Unavailable KARY, Natacha KWAN MD [...] Natacha KWAN MD Unavailable Unavailable KARY, Natacha WKAN MD Unavailable Unavailable KARY, Natacha KWAN MD [...] Unavailable KARY, Natacha KWAN MD Unavailable Unavailable PATTPatricio CANTOR MD Unavailable Unavailable PATTPatricio CANTOR MD Unavailable Unavailable PATT O ADAN MCLEAN Unavailable Unavailable PATTPatricio CANTOR MD Unavailable Unavailable PATTPatricio MD Unavailable Unavailable PATT O ADAN MCLEAN Unavailable Unavailable PATTPatricio MD Unavailable Unavailable PATTPatricio MD Unavailable Unavailable PATTPatricio MD Unavailable Unavailable PATTPatricio MD Unavailable Unavailable PATT O ADAN MCLEAN Unavailable Unavailable PATT O ADAN MCLEAN Unavailable Unavailable PATTPatricio MD Unavailable Unavailable PATT O ADAN MCLEAN Unavailable Unavailable PATT O ADAN MCLEAN Unavailable Unavailable PATT O ADAN MCLEAN Unavailable Unavailable PATT O ADAN MCLEAN Unavailable Unavailable PATT O ADAN MCLEAN Unavailable Unavailable PATT O ADAN MCLEAN Unavailable Unavailable PATT, O ADAN MCLEAN Unavailable Unavailable PATT, Patricio ARELLANO MD Unavailable Unavailable PATT, O ADAN MCLEAN Unavailable Unavailable PATT, O ADAN MCLEAN Unavailable Unavailable PATT, O ADAN MCLEAN Unavailable Unavailable PATT, O ADAN MD Unavailable Unavailable Ptaricio BELTRE MD Unavailable Unavailable Patricio BELTRE MD Unavailable Unavailable Patricio BELTRE MD Unavailable Unavailable Patricio BELTRE MD Unavailable Unavailable Patricio BELTRE MD Unavailable Unavailable Patricio BELTRE MD Unavailable Unavailable Patricio BELTRE MD Unavailable Unavailable Patricio BELTRE MD Unavailable Unavailable Patricio BELTRE MD Unavailable Unavailable Patricio BELTRE MD Unavailable Unavailable Patricio BELTRE MD Unavailable Unavailable Patricio BELTRE MD Unavailable Unavailable Patricio BELTRE MD Unavailable Unavailable Patricio BELTRE MD Unavailable Unavailable Patricio BELTRE MD Unavailable Unavailable Patricio BELTRE MD Unavailable Unavailable Patricio BELTER MD Unavailable Unavailable Patricio BELTRE MD Unavailable Unavailable Patricio BELTRE MD Unavailable Unavailable Patricio BELTRE MD Unavailable Unavailable Christiano BASILIO MD Unavailable Unavailable PARChristiano HENDERSON MD Unavailable Unavailable PARChristiano HENDERSON MD Unavailable Unavailable PARChristiano HENDERSON MD Unavailable Unavailable PARChristiano HENDERSON MD Unavailable Unavailable PARChristiano HENDERSON MD Unavailable Unavailable PARChristiano HENDERSON MD Unavailable Unavailable PARChristiano HENDERSON MD Unavailable Unavailable PARChristiano HENDERSON MD Unavailable Unavailable PARChristiano HENDERSON MD Unavailable Unavailable PARChristiano HENDERSON MD Unavailable Unavailable PARChristiano HENDERSON MD Unavailable Unavailable PARChristiano HENDERSON MD Unavailable Unavailable PARChristiano HENDERSON MD Unavailable Unavailable PARChristiano HENDERSON MD Unavailable Unavailable PARChristiano HENDERSON MD Unavailable Unavailable PARChristiano HENDERSON MD Unavailable Unavailable PARChristiano HENDERSON MD Unavailable Unavailable PARChristiano HENDERSON MD Unavailable Unavailable PARChristiano HENDERSON MD Unavailable Unavailable PARChristiano HENDERSON MD Unavailable Unavailable PARChristiano HENDERSON MD Unavailable Unavailable PARChristiano HENDERSON MD Unavailable Unavailable PARChristiano HENDERSON MD Unavailable Unavailable PARChristiano HENDERSON ALYCIA MD Unavailable Unavailable PARChristiano HENDERSON MD Unavailable Unavailable PARChristiano HENDERSON MD Unavailable Unavailable PARChristiano HENDERSON MD Unavailable Unavailable PARChristiano HENDERSON MD Unavailable Unavailable PARChristiano HENDERSON MD Unavailable Unavailable PARChristiano HENDERSON MD Unavailable Unavailable PARChristiano HENDERSON MD Unavailable Unavailable PARChristiano HENDERSON MD Unavailable Unavailable PARChristiano HENDERSON MD Unavailable Unavailable PARChristiano HENDERSON MD Unavailable Unavailable PARNESChristianoA Unavailable Unavailable PARNES, Z ALYCIA MD Unavailable Unavailable PARNES, Z ALYCIA MD Unavailable Unavailable PARNES, Z ALYCIA MD Unavailable Unavailable PARNES, Z ALYCIA MD Unavailable Unavailable PARNES, Z ALYICA MD Unavailable Unavailable PARNES, Z ALYCIA MD Unavailable Unavailable Mimi, D Km JUNIOR SALES ASSISTANT Unavailable Unavailable Mimi, D Km JUNIOR SALES ASSISTANT Unavailable Unavailable Mimi, D Km JUNIOR SALES ASSISTANT Unavailable Unavailable Mimi, D Km JUNIOR SALES ASSISTANT Unavailable Unavailable Mimi, D Km JUNIOR SALES ASSISTANT Unavailable Unavailable Mimi, D Km JUNIOR SALES ASSISTANT Unavailable Unavailable Mimi, D Km JUNIOR SALES ASSISTANT Unavailable Unavailable Mimi, D Km JUNIOR SALES ASSISTANT Unavailable Unavailable Mimi, D Km JUNIOR SALES ASSISTANT Unavailable Unavailable Mimi, D Km JUNIOR SALES ASSISTANT Unavailable Unavailable Mimi, D Km JUNIOR SALES ASSISTANT Unavailable Unavailable Mimi, D Km JUNIOR SALES ASSISTANT Unavailable Unavailable Mimi, D Km JUNIOR SALES ASSISTANT Unavailable Unavailable Mimi, D Km JUNIOR SALES ASSISTANT Unavailable Unavailable Mimi, D Km JUNIOR SALES ASSISTANT Unavailable Unavailable Mimi, D Km JUNIOR SALES ASSISTANT Unavailable Unavailable Mimi, D Km JUNIOR SALES ASSISTANT Unavailable Unavailable Mimi, D Km JUNIOR SALES ASSISTANT Unavailable Unavailable Mimi, D Km JUNIOR SALES ASSISTANT Unavailable Unavailable Mimi, D Km JUNIOR SALES ASSISTANT Unavailable Unavailable Mimi, D Km JUNIOR SALES ASSISTANT Unavailable Unavailable Mimi, D Km JUNIOR SALES ASSISTANT Unavailable Unavailable Mimi, D Km JUNIOR SALES ASSISTANT Unavailable Unavailable Mimi, D Km JUNIOR SALES ASSISTANT Unavailable Unavailable Mimi, D Km JUNIOR SALES ASSISTANT Unavailable Unavailable Mimi, D Km JUNIOR SALES ASSISTANT Unavailable Unavailable Mimi, D Km JUNIOR SALES ASSISTANT Unavailable Unavailable Mimi, D Km JUNIOR SALES ASSISTANT Unavailable Unavailable Mimi, D Km JUNIOR SALES ASSISTANT Unavailable Unavailable Mimi, D Km JUNIOR SALES ASSISTANT Unavailable Unavailable Mimi, D Km JUNIOR SALES ASSISTANT Unavailable Unavailable Mimi, D Km JUNIOR SALES ASSISTANT Unavailable Unavailable Mimi, D Km JUNIOR SALES ASSISTANT Unavailable Unavailable Mimi, D Km JUNIOR SALES ASSISTANT Unavailable Unavailable Mimi, D Km JUNIOR SALES ASSISTANT Unavailable Unavailable Mimi, D Km JUNIOR SALES ASSISTANT Unavailable Unavailable Peterson, R Yen FINANCIAL PLANNING ASSISTANT Unavailable Unavailable Peterson, R Yen FINANCIAL PLANNING ASSISTANT Unavailable Unavailable Peterson, R Yen FINANCIAL PLANNING ASSISTANT Unavailable Unavailable Peterson, R Yen FINANCIAL PLANNING ASSISTANT Unavailable Unavailable Peterson, R Yen FINANCIAL PLANNING ASSISTANT Unavailable Unavailable Peterson, R Yen FINANCIAL PLANNING ASSISTANT Unavailable Unavailable Peterson, R Yen FINANCIAL PLANNING ASSISTANT Unavailable Unavailable Peterson, R Yen FINANCIAL PLANNING ASSISTANT Unavailable Unavailable Peterson, R Yen FINANCIAL PLANNING ASSISTANT Unavailable Unavailable Peterson, R Yen FINANCIAL PLANNING ASSISTANT Unavailable Unavailable Peterson, R Yen FINANCIAL PLANNING ASSISTANT Unavailable Unavailable Peterson, R Yen FINANCIAL PLANNING ASSISTANT Unavailable Unavailable Peterson, R Yen FINANCIAL PLANNING ASSISTANT Unavailable Unavailable Peterson, R Yen FINANCIAL PLANNING ASSISTANT Unavailable Unavailable Peterson, R Yen FINANCIAL PLANNING ASSISTANT Unavailable Unavailable Peterson, R Yen FINANCIAL PLANNING ASSISTANT Unavailable Unavailable Peterson, R Yen FINANCIAL PLANNING ASSISTANT Unavailable Unavailable Peterson, R Yen FINANCIAL PLANNING ASSISTANT Unavailable Unavailable Peterson, R Yen FINANCIAL PLANNING ASSISTANT Unavailable Unavailable Peterson, R Yen FINANCIAL PLANNING ASSISTANT Unavailable Unavailable Peterson, R Yen FINANCIAL PLANNING ASSISTANT Unavailable Unavailable Peterson, R Yen FINANCIAL PLANNING ASSISTANT Unavailable Unavailable Peterson, R Yen FINANCIAL PLANNING ASSISTANT Unavailable Unavailable Peterson, R Yen FINANCIAL PLANNING ASSISTANT Unavailable Unavailable Peterson, R Yen FINANCIAL PLANNING ASSISTANT Unavailable Unavailable Peterson, R Yen FINANCIAL PLANNING ASSISTANT Unavailable Unavailable Peterson, R Yen FINANCIAL PLANNING ASSISTANT Unavailable Unavailable Peterson, R Yen FINANCIAL PLANNING ASSISTANT Unavailable Unavailable Peterson, R Yen FINANCIAL PLANNING ASSISTANT Unavailable Unavailable Peterson, R Yen FINANCIAL PLANNING ASSISTANT Unavailable Unavailable Peterson, R Yen FINANCIAL PLANNING ASSISTANT Unavailable Unavailable Peterson, R Yen FINANCIAL PLANNING ASSISTANT Unavailable Unavailable Peterson, R Yen FINANCIAL PLANNING ASSISTANT Unavailable Unavailable Peterson, R Yen FINANCIAL PLANNING ASSISTANT Unavailable Unavailable Peterson, R Yen FINANCIAL PLANNING ASSISTANT Unavailable Unavailable Peterson, R Yen FINANCIAL PLANNING ASSISTANT Unavailable Unavailable Peterson, R Yen FINANCIAL PLANNING ASSISTANT Unavailable Unavailable Peterson, R Yen FINANCIAL PLANNING ASSISTANT Unavailable Unavailable Peterson, R Yen FINANCIAL PLANNING ASSISTANT Unavailable Unavailable Peterson, R Yen FINANCIAL PLANNING ASSISTANT Unavailable Unavailable Tio PA-C, L PA-C Vick Unavailable [phone] Tio PA-C, L PA-C Vick Unavailable [phone] Tio PA-C, L PA-C Vick Unavailable [phone] Tio PA-C, L PA-C Vick Unavailable [phone] Tio PA-C, L PA-C Vick Unavailable [phone] Mimi, D Km JUNIOR SALES ASSISTANT Unavailable Unavailable Mimi, Jeffrey Barbour JUNIOR SALES ASSISTANT Unavailable Unavailable Mimi, Jeffrey Barbour JUNIOR SALES ASSISTANT Unavailable Unavailable Mimi, Jeffrey Barbour JUNIOR SALES ASSISTANT Unavailable Unavailable Mimi, Jeffrey Barbour JUNIOR SALES ASSISTANT Unavailable Unavailable Mimi, Jeffrey Barbour JUNIOR SALES ASSISTANT Unavailable Unavailable Mimi, Jeffrey Barbour JUNIOR SALES ASSISTANT Unavailable Unavailable Mimi, D Km JUNIOR SALES ASSISTANT Unavailable Unavailable Mimi, D Km JUNIOR SALES ASSISTANT Unavailable Unavailable Mimi, D Km JUNIOR SALES ASSISTANT Unavailable Unavailable Mimi, D Km JUNIOR SALES ASSISTANT Unavailable Unavailable Mimi, D Km JUNIOR SALES ASSISTANT Unavailable Unavailable Mimi, D Km JUNIOR SALES ASSISTANT Unavailable Unavailable Mimi, D Km JUNIOR SALES ASSISTANT Unavailable Unavailable Mimi, D Km JUNIOR SALES ASSISTANT Unavailable Unavailable Mimi, D Km JUNIOR SALES ASSISTANT Unavailable Unavailable Mimi, D Km JUNIOR SALES ASSISTANT Unavailable Unavailable Mimi, D Km JUNIOR SALES ASSISTANT Unavailable Unavailable Mimi, D Km JUNIOR SALES ASSISTANT Unavailable Unavailable Mimi, D Km JUNIOR SALES ASSISTANT Unavailable Unavailable Mimi, D Km JUNIOR SALES ASSISTANT Unavailable Unavailable Mimi, D Km JUNIOR SALES ASSISTANT Unavailable Unavailable Mimi, D Km JUNIOR SALES ASSISTANT Unavailable Unavailable Mimi, D Km JUNIOR SALES ASSISTANT Unavailable Unavailable Mimi, D Km JUNIOR SALES ASSISTANT Unavailable Unavailable Mimi, D Km JUNIOR SALES ASSISTANT Unavailable Unavailable Mimi, D Km JUNIOR SALES ASSISTANT Unavailable Unavailable Mimi, D Km JUNIOR SALES ASSISTANT Unavailable Unavailable Mimi, D Km JUNIOR SALES ASSISTANT Unavailable Unavailable Mimi, D Km JUNIOR SALES ASSISTANT Unavailable Unavailable Mimi, D Km JUNIOR SALES ASSISTANT Unavailable Unavailable Mimi, D Km JUNIOR SALES ASSISTANT Unavailable Unavailable Mimi, D Km JUNIOR SALES ASSISTANT Unavailable Unavailable Mimi, D Km JUNIOR SALES ASSISTANT Unavailable Unavailable Mimi, D Km JUNIOR SALES ASSISTANT Unavailable Unavailable Mimi, D Km JUNIOR SALES ASSISTANT Unavailable Unavailable Re-disclosure Warning The records that [...] is protected by Article 27-F of the [facility] Public Health law. If you continue you may have access to information: Regarding HIV / AIDS; Provided by facilities licensed or operated by the [facility] Office of Mental Health; or Provided by the [facility] Office for People With Developmental Disabilities. If such information is present, then the following [facility] mandated warning applies: This information has been [...] law may result in a fine or retirement sentence or both. A general authorization for the release of medical or other information is NOT sufficient authorization for further disc losure. Allergies and Adverse Reactions Type Description Substance Reaction Status Data Source(s ) No Known Drug Allergies No Known Drug Allergies [facility] No Known Food Allergies No Known Food Allergies [facility] Propensity to adverse reactions seasonal seasonal [facility] No Known Allergies No Known Allergies [facility] Family History Family Member Name Family Member Gender Family Member Status Date o f Status Description Data Source(s) Unknown Female Problem [facility] ([facility]) 3 stents placed Unknown Female Problem [facility] ([facility], ) Unknown Female Problem [facility] ([facility], ) Unknown Female Problem [facility] ([facility], ) Encounters Encounter Providers Location Date Indications Data Source(s ) Office Visit Attender: ADAN Espinoza/Too/Tello/Re indl 06/05/2021 07:30:00 AM EST [facility] ([facility], ) Outpatient Attender: ADAN Espinoza/Moses/Re indl 04/29/2021 02:00:00 PM EDT [facility] Attender: Abdulkadir Beavers MD Main Office 04/11/2021 01:30:00 PM EDT [facility] ([facility]) Outpatient Attender: JUVENTINO ROJAS Physical Therapy 04/10/2021 08:00:00 AM EDT [facility] ([facility] ) OFFICE OUTPATIENT VISIT 15 MINUTES Attender: JUVENTINO ROJAS Physical Therapy 03/27/2021 05:00:00 PM EDT [facility] ([facility] ) Outpatient Attender: Guillermo Baum Physical Therapy 01/25/2021 01:00:0 0 PM EDT [facility] ([facility] ) Outpatient Attender: Abdulkadir Beavers MD Main Office 12/25/2020 03:15:00 PM EDT [facility] ([facility]) OFFICE OUTPATIENT VISIT 15 MINUTES Attender: JUVENTINO ROJAS Physical Therapy 12/04/2020 02:45:00 PM EDT [facility] ([facility]) Outpatient Attender: JUVENTINO ROJAS Physical Therapy 11/02/2020 02:45:00 PM EDT [facility] ([facility]) [place] [address] [address] 09/03/2020 12:00:00 AM EST eCW1 ([facility]) Outpatient Attender: AQUILES PRESTON MDReferrer: Yen Yeeif fin [facility] 08/14/2020 10:28:45 AM EST [facility] Recurring Patient Attender: AQUILES LARALFF MDReferrer: Yen Yee iffin [facility] 08/14/2020 09:41:44 AM EST [facility] Recurring Patient Attender: AQUILES KARY MDReferrer: Yen Yee iffin [facility] 08/14/2020 09:22:06 AM EST [facility] Outpatient Attender: ALYCIA BASILIO MDConsultant: Vick crum PA-C 08/13/2020 07:09:41 AM EST - 08/14/2020 11:27:00 AM EST [facility] Patient discharged. Outpatient Attender: Km Cali [facility] angel: ALYCIA BASILIO MDConsultant: Vick Kinsey PA-C 08/08/2020 11:31:00 AM EST - 08/08/2020 11:31:00 AM EST [facility] Outpatient Attender: ALYCIA BASILIO MD Family Practice 08/08/2020 10 :20:00 AM EST [facility] ([facility]) [place] [address] [address] 08/08/2020 12:00:00 AM EST eCW1 ([facility]) [place] [address] [address] 07/17/2020 12:00:00 AM EST eCW1 ([facility]) Outpatient Attender: ALYCIA BASILIO MDConsultant: Vick crum PA-C 07/11/2020 02:56:00 PM EST - 07/11/2020 02:56:00 PM EST [facility] Outpatient Attender: ALYCIA BASILIO MD Family Practice 07/11/2020 02 :00:00 PM EST [facility] ([facility]) Recurring Patient Attender: AQUILES PRESTON MDReferrer: Yen valdivia [facility] 07/10/2020 09:49:36 AM EST [facility] [place] [address] [address] 07/07/2020 12:00:00 AM EST eCW1 ([facility]) Outpatient Attender: Km Cali NPConsultant: Vick botello PA-C 07/06/2020 07:20:00 AM EST - 07/06/2020 08:20:00 AM [facility] Patient discharged. Outpatient Attender: Km Cali NPConsultant: Vick botello PA-C 07/01/2020 01:32:00 PM EST - 07/01/2020 02:32:00 PM [facility] Outpatient Attender: ALYCIA BASILIO MDConsultant: Vick Lunsford rdy LAURA 06/29/2020 01:12:00 PM EST - 06/29/2020 01:12:00 PM [facility] Outpatient Attender: Km Cali NP [facility] Practice 06/29/2020 1 2:00:00 PM EST [facility] ([facility]) Recurring Patient Attender: AQUILES PRESTON MDReferrer: Yen valdivia [facility] 06/20/2020 02:21:44 PM EST [facility] [place] [address] [address] 06/13/2020 12:00:00 AM EST eCW1 ([facility]) [place] [address] [address] 06/12/2020 12:00:00 AM EST eCW1 ([facility]) Outpatient [place]ERAY[place] 05/15/2020 02:24:00 PM EDT [facility] 05/15/2020 11:55:00 AM EDT [facility] 05/15/2020 09:52:01 AM EDT [facility] Immunizations Vaccine Date Status Description Data Source(s) COVID-19 VACCINE Pfizer 10/09/2020 12:00:00 AM EDT completed [facility] Vaccine Series Complete: NOThis Data was Submitted to [facility] Via [employer]. Medications Medication Brand Name Start Date Product Form Dose Route Admi nistrative Instructions Pharmacy Instructions Status Indications Reaction Description Data Source(s) Acetaminophen 325 MG / Hydrocodone Bitartrate 5 MG Ora l Tablet Hydrocodone Bitartrate/Acetaminophen 05/28/2021 12:00:00 AM EST completed [facility] ([facility], ) Fluoxetine 20 MG Oral Capsule [Prozac] Prozac [...] type / Coverage type Policy ID Covered democrat ID Covered democrat's relationship to amador Policy Amador Plan Information [facility] ACTIVE DUTY [id number] [facility] F [id number] SELF [id number] [facility] F [id number] SELF [id number] [facility] ACTIVE DUTY [id number] [facility] (2018) Commercial [id number] Self [id number] [facility] F [id number] SELF [id number] [facility] F [id number] SELF [id number] [facility] [place] [id number] 18 [id number] [facility] AT [facility] [place] [id number] 18 [id number] [facility] [place] [id number] 18 [id number] [facility] [place] [id number] 18 [id number] [facility] [place] [id number] 18 [id number] [facility] REGIONAL CLAIMS QUIANA-O/P [id number] 18 [id number] [facility] P UNAVAILABLE S U NAVAILABLE ANSI-Commercial [id number] ANSI-Not a Secondary Insurance [id number] [facility] [id number] Critical access hospital Commercial [id number] Self [id number] ANSI-Commercial [id number] ANSI-Not a Secondary Insurance [id number] ANSI-Not a Secondary Insurance [id number] ANSI-Not a Secondary Insurance [id number] ANSI-Not a Secondary Insurance [id number] [facility] [employer] Commercial [id number] Self [id number] [facility] Commercial [id number] Self [id number] N REGIONAL CLAIMS [facility]-PHYSICIAN [id number] 18 [id number] [facility] Commercial [id number] Self [id number] [facility] [place] [id number] 18 [id number] N REGIONAL CLAIMS [facility] [id number] 18 [id number] [facility] Commercial [id number] Self [id number] ACTIVE DUTY [id number] SP [id number] ACTIVE DUTY [id number] SP [id number] ACTIVE DUTY [id number] SP [id number] Shannen [id number] [facility] Health Maintenance Organization (HMO) [id number] Self ACTIVE DUTY [id number] SP [id number] 'S ADMINISTRATION [id number] SP [id number] [employer] [place] CCN [id number] SP [id number] [facility] [id number] SP [id number] [facility] [id number] SP [id number] SELF PAY ONLY [id number] SP [id number] USP AT [facility] [place] [id number] 18 [id number] [facility] [place] [id number] 18 [id number] Problems, Conditions, and Diagnoses Code Display Name Description Problem Type Effective Dates Data Source(s) Q82840 Encounter for other preprocedural examin ation Encounter for other preprocedural examination Diagnosis 08/14/2020 10:05:00 AM [facility] [id number] Primary osteoarthritis, left shoulder Pr imary osteoarthritis, left shoulder Diagnosis 08/08/2020 11:31:00 AM [facility] [id number] Bursitis of left shoulder Bursitis of left shoulder Di agnosis 08/08/2020 11:31:00 AM [facility] [id number] Unspecified rotator cuff tea r or rupture of left shoulder, not specified as traumatic Unspecified rotator cuff tear or rupture of left shoulder, not specified as traumatic Diagnosis 08/08/2020 11:31:00 AM [facility] [id number] Other bursal cyst, left shoulder Other bursal cy st, left shoulder Diagnosis 07/06/2020 07:20:00 AM [facility] [id number] Incomplete rotator cuff tear or rupture of left shoulder, not specified as traumatic Incomplete rotator cuff tear or rupture of left shoulder, not specified as traumatic Diagnosis 07/06/2020 07:20:00 AM [facility] [id number] Incomplete rotator cuff tear or rupture of right shoulder, not specified as traumatic Incomplete rotator cuff tear or rupture of right shoulder, not specified as traumatic Diagnosis 07/01/2020 01:32:00 PM [facility] [id number] Screening for malignant neoplasm of colo n Screening for malignant neoplasm of colon Problem 04/11/2021 12:00:00 AM EDT [facility] ([facility]) [id number] Pure hypercholesterolemia Pure hypercholesterolemia Pr oblem 01/25/2021 12:00:00 AM EDT [facility] ([facility]) [id number] Essential hypertension Essential hypertension Problem 01/25/2021 12:00:00 AM EDT [facility] ([facility]) [id number] Gastroesophageal reflux disease Gastroesophageal reflux disease Problem 12/25/2020 12:00:00 AM EDT [facility] ([facility]) K21.9 [id number] Gastroesophageal ref lux disease, unspecified whether esophagitis present Problem 06/12/2020 12:00:00 AM EST eCW1 ([facility] [place] Surgeries/Procedures Procedure Description Date Indications Data Source(s) Laparoscopy,Surgical;Cholecystectomy 05/28/2021 12:00: 00 AM EST MEDENT ([facility], ) OFFICE OUTPATIENT NEW 45 MINUTES 04/29/2021 12:00:00 A M EDT [facility] ([facility], ) OFFICE OUTPATIENT VISIT 25 MINUTES 04/11/2021 12:00:00 AM EDT [facility] ([facility]) OFFICE OUTPATIENT VISIT 25 MINUTES 04/10/2021 12:00:00 AM EDT [facility] ([facility]) OFFICE OUTPATIENT VISIT 15 MINUTES 03/27/2021 12:00:00 AM EDT [facility] ([facility]) PHYSICIAN TELEPHONE EVALUATION 11-20 MIN 03/27/2021 12 :00:00 AM EDT [facility] ([facility]) Needle electromyography, each extremity, with related paraspinal areas, when performed, done with nerve conduction, amplitude and latency/velocity study; complete, five or more muscles studied, innervated by three or more nerves or four or more spinal levels (list separately in addition to the code for primary procedure). 01/25/2021 12:00:00 AM EDT MEDEN T ([facility]) Nerve Conduction 9-10 Studies 01/25/2021 12:00:00 AM E DT MEDENT ([facility]) OFFICE CONSULTATION NEW/ESTAB PATIENT 60 MIN 12:00:00 AM EDT [facility] ([facility]) OFFICE OUTPATIENT NEW 30 MINUTES 12/25/2020 12:00:00 A M EDT [facility] ([facility]) OFFICE OUTPATIENT VISIT 15 MINUTES 12/04/2020 12:00:00 AM EDT [facility] ([facility]) X-Ray Hip Unilateral With Pelvis 2-3 Views 11/02/2020 12:00:00 AM EDT [facility] ([facility]) OFFICE OUTPATIENT NEW 45 MINUTES 11/02/2020 12:00:00 A M EDT [facility] ([facility]) Results ID Date Data Source [id number] 06/21/2021 09:50:00 AM EST [facility] Name Value Range Interpretation Code Description Data Patricia rce(s) Supporting Document(s) SARS-CoV-2 (COVID-19) RNA [Presence] in Respiratory specimen by GHAZALA with probe detection Not Detected [facility] This lab was ordered by [facility] and reported by [employer] ID Date Data Source [id number] 05/28/2021 10:51:00 AM EST [facility] ([facility], ) Name Value Range Interpretation Code Description Data Patricia rce(s) Supporting Document(s) Surgical pathology study Laboratory test result [facility] ([facility]) FINAL DIAGNOSIS Gallbladder, cholecystectomy: Mild chronic cholecystitis. 05/29/2021 - 102 CLINICAL DIAGNOSIS Symptomatic gallstones 05/29/2021 - 67 GROSS DIAGNOSIS Received in formalin labeled "gallbladder [...] tinge. Representatively submitted in one block. -SV 05/29/2021 - 734 Signed BAYRON INMAN MD 05/29/2021 1030 ID Date Data Source [id number] 05/28/2021 08:22:00 AM EST [facility] ([facility], ) Name Value Range Interpretation Code Description Data Patricia rce(s) Supporting Document(s) Glucose, Fasting 102 mg/dL 70-100 Above high [facility] Blood Urea Nitrogen 13 mg/dL 7-18 Normal (applies to non-nume jermain results) [facility] ([facility]) Creatinine For GFR 1.32 mg/dL 0.70-1.30 Above high normal [facility] ([facility]) Glomerular Filtration Rate Laboratory test result Normal (applies to non- numeric results) [facility] ([facility], ) <content>Units are mL/min/1.73 m2</content>
<content></content>
<content>Chronic Kidney Disease Staging per NKF:</content>
<content></content>
<content>Stage I & II GFR >=60 Normal to Mildly Decreased</content>
<content>Stage III GFR 30- 59 Moderately Decreased</content>
<content>Stage IV GFR 15-29 Severely Decreased</content>
<content>Stage V GFR <15 Very Little GFR Left</content>
<content>ESRD GFR <15 on [employer]</content>
<content></content> Chloride Level 106 meq/L 98-107 Normal (applies to non-numeric r esults) [facility] ([facility], ) Sodium Level 141 meq/L 136-145 Normal (applies to non-numeric res ults) [facility] ([facility]) Potassium Serum 4.7 meq/L 3.5-5.1 Normal (applies to non-numeric results) [facility] ([facility], ) Anion Gap 4 meq/L 8-16 Below low [facility] Carbon Dioxide Level 31 meq/L 21-32 Normal (applies to non-num keith results) [facility] ([facility]) Ast/Sgot 26 U/L 7-37 Normal (applies to non-numeric resul ts) [facility] Alt/SGPT 44 U/L 12-78 Normal (applies to non-numeric resul ts) [facility] ([facility]) Calcium Level 9.1 mg/dL 8.5-10.1 Normal (applies to non-numeric re sults) [facility] ([facility]) Total Protein 6.8 GM/DL 6.4-8.2 Normal (applies to non-numeric re sults) [facility] ([facility]) Bilirubin,Total 0.4 mg/dL 0.2-1.0 Normal (applies to non-numeric results) [facility] ([facility]) Alkaline Phosphatase 62 U/L 45-117 Normal (applies to non-num keith results) [facility] ([facility]) Albumin 3.7 GM/DL 3.2-5.2 Normal (applies to non-numeric resul ts) [facility] ([facility]) Albumin/Globulin Ratio 1.2 Normal (applies to non-n umeric results) [facility] ([facility]) ID Date Data Source [id number] 08/14/2020 10:28:45 AM EST [facility], PCName: Abram WeemsdavidDOB: 1975Provider: Skye Preston: 08/14/2020 Reason For VisitAbram [...] greater than 4 weeks. 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 History of Present [id number] fit healthy man no longer working for [...] Indication: pain/dysfunction.); Status:Complete; Done: 14Aug2020 Perform:SOS14 (General); Due:[id number]; Last Updated By:Mee Cox; 08/14/2020 10:08:29 AM;Ordered; For:Right lumbar radiculopathy; Ordered By:Aquiles Preston; Physical therapy if no improvement follow-up and consider lumbar MRI Work / School NoteThe percentage of temporary impairment is 0%. The patient is working at this time. Signatures Electronically signed by : Aquiles Preston M.D.; Aug 14 2020 10:28AM EST (Author) Name Value Range Interpretation Code Description Data Patricia e(s) Supporting Document(s) ID Date Data Source [id number] 08/08/2020 07:24:00 PM EST [facility] Name Value Range Interpretation Code Description Data Patricia rce(s) Supporting Document(s) [facility]IS [facility] URINALYSIS SOURCE Clean Catch [facility] COLOR yellow NORMAL: Yellow [facility] CLARITY clear NORMAL: Clear [facility] Specific gravity of Urine by Test strip 1.005 1.001 - 1.030 [facility] pH 6.5 5 - 9 [facility] Glucose [Mass/volume] in Urine by Test strip NORM NORMAL: Negat renny [facility] Bilirubin.total [Presence] in Urine by Test strip NEG NORMAL: Negative [facility] Ketones [Presence] in Urine by Test strip NEG NORMAL: Negative [facility] Protein [Mass/volume] in Urine by Test strip NEG NORMAL: Negat renny [facility] Nitrite [Presence] in Urine by Test strip NEG NORMAL: Negative [facility] BLOOD NEG NORMAL: Negative [facility] Leukocyte esterase [Presence] in Urine by Test strip NEG TONY L: Negative [facility] Urobilinogen [Mass/volume] in Urine by Test strip NOR less sánchez n 1.0 mg/dL [facility] MICROSCOPIC Not Indicate [facility]ital ID Date Data Source [id number] 08/08/2020 01:27:00 PM EST [facility] Name Value Range Interpretation Code Description Data Patricia rce(s) Supporting Document(s) COMPREHENSIVE METABOLIC PANEL [facility] COMPREHENSIVE METABOLIC PANEL Sodium [Moles/volume] in Serum or Plasma 139 mEq/L 134 - 153 [facility] Potassium [Moles/volume] in Serum or Plasma 4.4 mEq/L 3.6 - 5.0 [facility] Chloride [Moles/volume] in Serum or Plasma 100 mEq/L 98 - 107 [facility] Carbon dioxide, total [Moles/volume] in Serum or Plasma 29 MEQ/L 22 - 30 [facility] Glucose [Mass/volume] in Serum or Plasma 98 MG/DL 70 - 99 [facility] BUN 19 MG/DL 7 - 21 [facility] Creatinine [Mass/volume] in Serum or Plasma 1.2 MG/DL 0.7 - 1.5 [facility] BUN/CREAT 16 8 - 27 [facility] al Protein [Mass/volume] in Serum or Plasma 7.4 G/DL 6.3 - 8.2 [facility] Albumin [Mass/volume] in Serum or Plasma 5.1 G/DL 3.9 - 5.0 H [facility] Globulin [Mass/volume] in Serum by calculation 2.3 GM/DL 2.4 - 3.2 L [facility] A/G RATIO 2.2 0.8 - 2.0 H [facility] al Calcium [Mass/volume] in Serum or Plasma 9.6 MG/DL 8.4 - 10.2 [facility] Bilirubin.total [Mass/volume] in Serum or Plasma 0.7 MG/DL 0.2 - 1.3 [facility] Alkaline phosphatase [Enzymatic activity/volume] in Serum or Plasma 54 U/L 38 - 126 [facility] Aspartate aminotransferase [Enzymatic activity/volume] in Serum or Plasma 37 U/L 5 - 40 [facility] Alanine aminotransferase [Enzymatic activity/volume] in Seru m or Plasma 35 U/L 7 - 56 [facility] Anion gap 3 in Serum or Plasma 10.0 mmol/L 8.0 - 16.0 [facility] AGE 45 yrs [facility] NON-AA GFR >60 mL/min [facility] AFR AMER GFR >60 mL/min [facility] Male GFR In terprentation 20-49 [...] >32 mL/min Normal ID Date Data Source [id number] 08/08/2020 12:59:00 PM EST [facility] Name Value Range Interpretation Code Description Data Patricia rce(s) Supporting Document(s) CBC NO DIFF [facility] COMPLETE BLOOD COUNT Leukocytes [#/volume] in Blood by Automated count 7.1 10^3/uL 4.2 - 1 1.0 [facility] Erythrocytes [#/volume] in Blood by Automated count 4.75 10^6/uL 4. 50 - 6.30 [facility] Hemoglobin [Mass/volume] in Blood 14.9 g/dL 14.0 - 16.0 [facility] Hematocrit [Volume Fraction] of Blood by Automated count 42.4 % 4 1.0 - 51.0 [facility] Erythrocyte mean corpuscular volume [Entitic volume] by Auto mated count 89.3 fL 80.0 - 94.0 [facility] Erythrocyte mean corpuscular hemoglobin [Entitic mass] by Automated count 31.4 pg 27.0 - 34.0 [facility] Erythrocyte mean corpuscular hemoglobin concentration [Mass/volume] by Automated count 35.1 g/dL 31.0 - 36.0 [facility] Erythrocyte distribution width [Ratio] by Automated count 11.8 % 11.5 - 14.8 [facility] Platelets [#/volume] in Blood by Automated count 222 10^3/uL 150 - 45 0 [facility] Platelet mean volume [Entitic volume] in Blood by Automated count 10.3 fL 7.4 - 10.4 [facility] ID Date Data Source [id number] 07/09/2020 10:03:00 AM EST [facility] [address] [place] [address] PHONE: [phone] FAX: [phone] Name .................. : BERENICE VALVERDE Acct Number.................. : [id number] ROOM. ................. : Number ................... : [id number] Stay type ............. : O/P Discharge Date......... ... : 07/06/20 Admit Date ....... .. : 07/06/20 Admit Phys .................... : TOMER Date of ....... : 1975 Family Phys ................... : TIO ROJAS Phone .................. : [phone] Age ................................ : 44 Film# .................. .:[id number] Sex ................................. : M Unsigned transcriptions are preliminary reports and do not represent a medical or legal document MRI UPP EXT ANY JT W/O CON LT [id number] COMPLETE:07/06/20 12:18 RL 463 (REASON FOR PROCESS: [...] glenoid anteriorly. IMPRESSION: Page 1 of 2 [facility] [address] [place] [address] [place] [address] PHONE: [phone] FAX: [phone] Name .................. : BERENICE VALVERDE Acct Number.................. : [id number] ROOM. ................. : Number ................... : [id number] Stay type ............. : O/P Discharge Date......... ... : 07/06/20 Admit Date ......... : 07/06/20 Admit Phys .................... : TOMER Date of ....... : 1975 Family Phys ................... : TIO ROJAS Phone .................. : [phone] Age ................................ : 44 Film# .................. .:[id number] Sex ................................. : M Unsigned transcriptions are preliminary reports and do not represent a medical or legal document MRI UPP EXT ANY JT W/O CON [place] [id number] COMPLETE:07/06/20 12:18 RL 463 (REASON FOR PROCESS: [...] By Hector Pritchard MD , 07/09/20 10:03, [facility] Transcribe Initials: DZ , Transcribe Date: 07/06/20 17:28, Dictation Date: Copy for: MIMI Murphy via fax Copy for: [address] [place] [address] REC Page 2 of 2 Name Value Range Interpretation Code Description Data Patricia rce(s) Supporting Document(s) ID Date Data Source [id number] 07/02/2020 09:32:00 AM EST [address] [place] [address] PHONE: [phone] FAX: [phone] Name .................. : BERENICE VALVERDE Acct Number.................. : [id number] ROOM. ................. : MR Number ................... : [id number] Stay type ............. : O/P Discharge Date......... ... : 07/01/20 Admit Date ....... .. : 07/01/20 Admit Phys .................... : TOMER Date of ....... : 1975 Family Phys ................... : TIO ROJAS Phone .................. : [phone] Age ................................ : 44 Film# .................. .:[id number] Sex ................................. : M Unsigned transcriptions are preliminary reports and do not represent a medical or legal document SHOULDER COMP-2 OR MORE [facility] L [id number] COMPLETE:07/01/20 13:39 111 (REASON FOR PROCESS: PAIN [...] for: MIMI Murphy via fax Copy for: [address] [facility] REC Page 1 of 1 Name Value Range Interpretation Code Description Data Patricia rce(s) Supporting Document(s) ID Date Data Source [id number] 06/22/2020 12:00:00 AM EST [facility] Name Value Range Interpretation Code Description Data [facility] rce(s) Supporting Document(s) 2019-nCoV RNA XXX GHAZALA+probe-Imp [facility] This lab was ordered by [facility] and reported by [employer] ID Date Data Source [id number] 05/15/2020 09:50:31 AM EDT [facility] Vital SignsTemperature: 96.9FB lood Pressure: 126/78 Patient [...] O (Performed by Gabby Dallas RDH) Chart Notes:michelle (May 15 2020 2:23PM): [facility]). CC: none. Reviewed Xrays. Exam: no caries detected.There is a marginal defect on the existing cheondoism both buccaly and lingually. Will seal with composite, OCS: WNL, IO/ EO completed, No significant hard findings upon clinical exam.Additional PPE requirements due to COVID-19 in the dental setting, N95, surgical mask, hair covering, gown and shieldPt was cooperative. OHI given Referral: N/A NV:cheondoism, seal demarco on existing cheondoism #30Gabby Dallas RDH by michelle (05/15/2020 2:23 PM): ; leigh (May 15 2020 10:22AM): Additional PPE requirements due to COVID-19 in the dental setting, N95, surgical mask, hair covering, gown. [facility] with patient. No problems or concerns today. Discussed that crowns will eventually need to be replaced. Crowns are old and there is recessation. Pt. complains of #30 being sharp, will do an occ cheondoism.Oral cancer screening-no significant findings. Tempature:96.9Adult prophy- handscaled and used cavitron in all quads-pt. tolerated well, english- mint prophy paste, flossOH-Patient brushes once/day and is not flossing regularl y. Pt. uses electric toothbrushLT gen marginal biofilm and marginal/introproximal calculus on LA. Moderate staining. Tissues are red, inflammed, and bleeding in sextant 5OHI- Advise to brush 2x a day and floss everyday. Recommended brushing with a light tonguer due to recessation. Recommended Listerine ZeroPatient is cooperative. NV- 6 month recall/fillingsWMargaret palma RDHa by leigh (05/15/2020 10:22 AM): Tooth Notes and Watches: Assessment & Plan Medications:TRAZADONELIPATORCHLORTHALIDONEOMEPROZOLELOTRELFLUOXETINEAllergies:No Known Allergies (updated 05/15/2020) Name Value Range Interpretation Code Description Data Patricia rce(s) Supporting Document(s) Procedure Social History Code Duration Value Status Description Data Source(s ) Smoking 06/12/2020 12:00:00 AM EST Never Smoker completed Never S moker eCW1 ([facility]) Smoking 06/12/2020 12:00:00 AM EST Never Smoker completed Never S moker eCW1 ([facility]) Smoking 06/12/2020 12:00:00 AM EST Never Smoker completed Never S moker eCW1 ([facility]) Smoking 06/12/2020 12:00:00 AM EST Never Smoker completed Never S moker eCW1 ([facility]) Smoking 06/12/2020 12:00:00 AM EST Never Smoker completed Never S moker eCW1 ([facility]) Smoking 06/12/2020 12:00:00 AM EST Never Smoker completed Never S moker eCW1 ([facility]) Vital Signs ID Date Data Source UNK Name Value Range Interpretation Code Description Data Source(s) Matheny body weight 148 [lb_av] 148 [lb_av] KRISTOPHER T ([facility], ) Body weight 88.622 kg 88.622 kg ABIMAEL ([facility], ) Body surface area Derived from formula 2.00 m2 2.00 m2 ABIMAEL ([facility], ) Systolic blood pressure 114 mm[Hg] 114 mm[Hg] M EDSTEPHEN ([facility], ) Diastolic blood pressure 70 mm[Hg] 70 mm[Hg] [facility] Body temperature 98.2 [degF] 98.2 [degF] [facility] ([facility]) Body height 67 [in_i] 67 [in_i] [facility] ([facility]) 5'7" Body weight 195.38 [lb_av] 195.38 [lb_av] MEDEN T ([facility]) Body mass index (BMI) [Ratio] 30.6 kg/m2 30.6 k g/m2 [facility] ([facility]) Body surface area Derived from formula 1.99 m2 1.99 m2 [facility] ([facility]) Systolic blood pressure 116 mm[Hg] 116 mm[Hg] M EDENT ([facility]) Diastolic blood pressure 62 mm[Hg] 62 mm[Hg] [facility] ([facility]) Body temperature 98.7 [degF] 98.7 [degF] [facility] ([facility]) Body height 67 [in_i] 67 [in_i] [facility] ([facility]) 5'7" Body weight 192.12 [lb_av] 192.12 [lb_av] MEDEN T ([facility]) Body mass index (BMI) [Ratio] 30.1 kg/m2 30.1 k g/m2 [facility] ([facility]) Matheny body weight 148 [lb_av] 148 [lb_av] MEDEN T ([facility]) Body weight 87.148 kg 87.148 kg [facility] ([facility]) Body height 67 [in_i] 67 [in_i] [facility] ([facility] 5'7" Body weight 188.06 [lb_av] 188.06 [lb_av] [...] Body temperature 97.1 [degF] 97.1 [degF] [facility] ([facility]) Body height 67.5 [in_i] 67.5 [in_i] [facility] ([facility]) 5'7.50" Body weight 191.50 [lb_av] 191.50 [lb_av] MEDEN T ([facility]) Body mass index (BMI) [Ratio] 29.5 kg/m2 29.5 k g/m2 [facility] ([facility]) Systolic blood pressure 120 mm[Hg] 120 mm[Hg] M EDENT ([facility]) Diastolic blood pressure 86 mm[Hg] 86 mm[Hg] [facility] ([facility]) Heart rate 76 /min 76 /min [facility] ([facility]) Body temperature 96.4 [degF] 96.4 [degF] [facility] ([facility]) Oxygen saturation in Arterial blood by Pulse oximetry 99 % 99 % [facility] ([facility]) Body weight 187.00 [lb_av] 187.00 [lb_av] MEDEN T ([facility]) Body weight 84.823 kg 84.823 kg MEDENT ([facility]) Body height 67 [in_i] 67 [in_i] [facility] ([facility]) 5'7" Body mass index (BMI) [Ratio] 29.3 kg/m2 29.3 k g/m2 [facility] ([facility]) Body surface area Derived from formula 1.97 m2 1.97 m2 [facility] ([facility]) Body temperature 97.2 [degF] 97.2 [degF] [facility] ([facility]) Body temperature 97.4 [degF] 97.4 [degF] [facility] ([facility]) Body weight 196.8 [lb_av] 196.8 [lb_av] eCW1 ([facility]) Heart rate 67 /min 67 /min eCW1 ([facility]) Body height [in_i] eCW1 ([facility]) Respiratory rate 17 /min 17 /min eCW1 ([facility]) Body temperature 97.7 [degF] 97.7 [degF] eCW1 ( [facility]) Body mass index (BMI) [Ratio] 30.82 kg/m2 30.82 kg/m2 eCW1 ([facility]) Systolic blood pressure 115 mm[Hg] 115 mm[Hg] e CW1 ([facility]) Diastolic blood pressure 72 mm[Hg] 72 mm[Hg] eCW1 ([facility])
[2021-06-26] MEDS ORDERED: propofoL 200 MG/20 ML VIAL As Ordered ONE (12:06)
--- NOTE | 2021-06-26 12:08 | ROOR ---
Patient Name: Jonathan Cook Procedure Date: 06/26/2021 11:52 AM Date of : 1975 Age: 45 Room: [facility] Gender: Male Note Status: Finalized Procedure: Upper Endoscopy + Biopsies Indications: Epigastric abdominal pain, Heartburn Providers: Abdulkadir Beavers MD Referring MD: Thomas Deleon Requesting Provider: Medicines: Monitored Anesthesia Care Complications: No immediate complications. Procedure: Pre-Anesthesia Assessment: - The heart rate, respiratory rate, oxygen saturations, blood pressure, adequacy of pulmonary ventilation, and response to care were monitored throughout the procedure. The Endoscope was introduced through the mouth, and advanced to the second part of duodenum. The upper GI endoscopy was accomplished without difficulty. The patient tolerated the procedure well. Findings: The Z-line was variable and was found 40 cm from the incisors. Multiple biopsies were obtained with cold forceps for evaluation to rule out Enamorado's Esophagus randomly at the gastroesophageal junction. No other significant abnormalities were identified in a careful examination of the stomach. Biopsies were taken with a cold forceps in the gastric antrum for Helicobacter pylori testing. The exam of the duodenum was otherwise normal. Impression: - Z-line variable, 40 cm from the incisors. - Multiple biopsies were obtained at the gastroesophageal junction. - Biopsies were taken with a cold forceps for Helicobacter pylori testing. - The examination was otherwise normal. Recommendation: - Patient has a contact number available for emergencies. The signs and symptoms of potential delayed complications were discussed with the patient. Return to normal activities tomorrow. Written discharge instructions were provided to the patient. - High fiber diet. - Discharge patient to home. - Follow an antireflux regimen. - Continue present medications. - Await pathology results. - Telephone GI clinic for pathology results in 1 week. - Return to referring physician. - The findings and recommendations were discussed with the patient. Procedure Code(s): --- Professional --- 12800, Esophagogastroduodenoscopy, flexible, transoral; with biopsy, single or multiple Diagnosis Code(s): --- Professional --- K22.8, Other specified diseases of esophagus R10.13, Epigastric pain R12, Heartburn CPT copyright 2019 [employer]. All rights reserved. The codes documented in this report are preliminary and upon director insurance review may be revised to meet current compliance requirements. Abdulkadir Beavers MD Abdulkadir Beavers MD 06/26/2021 12:08:26 PM Electronically signed by Abdulkadir Beavers MD Number of Addenda: 0 Note Initiated On: 06/26/2021 11:52 AM Estimated Blood Loss: Estimated blood loss: none.
--- NOTE | 2021-06-26 12:20 | ROOR ---
Patient Name: Jonathan Cook Procedure Date: 06/26/2021 11:53 AM Date of : 1975 Age: 45 Room: [facility] Gender: Male Note Status: Finalized Procedure: Total Colonoscopy to Cecum + ileoscopy Indications: Screening for colorectal malignant neoplasm Providers: Abdulkadir Beavers MD Referring MD: Thomas Deleon Requesting Provider: Medicines: Monitored Anesthesia Care Complications: No immediate complications. Procedure: Pre-Anesthesia Assessment: - The heart rate, respiratory rate, oxygen saturations, blood pressure, adequacy of pulmonary ventilation, and response to care were monitored throughout the procedure. The Colonoscope was introduced through the anus and advanced to the terminal ileum, with identification of the appendiceal orifice and IC valve. The colonoscopy was performed without difficulty. The patient tolerated the procedure well. The quality of the bowel preparation was excellent. Findings: The perianal and digital rectal examinations were normal. Non-bleeding internal hemorrhoids were found during retroflexion. The hemorrhoids were small and Grade I (internal hemorrhoids that do not prolapse). No other significant abnormalities were identified in a careful examination of the remainder of the colon. The terminal ileum appeared normal. The exam was otherwise without abnormality. Impression: - Non-bleeding internal hemorrhoids. - The examined portion of the ileum was normal. - The examination was otherwise normal. - No specimens collected. - The exam was otherwise normal to the cecum. Recommendation: - Patient has a contact number available for emergencies. The signs and symptoms of potential delayed complications were discussed with the patient. Return to normal activities tomorrow. Written discharge instructions were provided to the patient. - High fiber diet. - Discharge patient to home. - Continue present medications. - Repeat colonoscopy in 10 years for screening purposes. - Return to referring physician. - The findings and recommendations were discussed with the patient. Procedure Code(s): --- Professional --- 13904, Colonoscopy, flexible; diagnostic, including collection of specimen(s) by brushing or washing, when performed (separate procedure) Diagnosis Code(s): --- Professional --- Z12.11, Encounter for screening for malignant neoplasm of colon K64.0, First degree hemorrhoids CPT copyright 2019 [employer]. All rights reserved. The codes documented in this report are preliminary and upon php consultant review may be revised to meet current compliance requirements. Abdulkadir Beavers MD Abdulkadir Beavers MD 06/26/2021 12:20:18 PM Electronically signed by Abdulkadir Beavers MD Number of Addenda: 0 Note Initiated On: 06/26/2021 11:53 AM Estimated Blood Loss: Estimated blood loss: none.
[2021-06-26 12:40] VITALS: BP 98/53
== END 2021-06-26 12:50 | disposition home or self-care (01) ==
LOC: M OPP 10:28
PROVIDERS: ATTEND Internal Medicine Gastroenterology
DX: Z12.11 Encounter for screening for malignant neoplasm of colon (principal); K64.0 First degree hemorrhoids; K22.89 Other specified disease of esophagus; R10.13 Epigastric pain; Z79.899 Other long term (current) drug therapy

== ENCOUNTER 2021-11-25 16:28 | Emergency (ER) | payer OTHER ==
[~2021-11-25] VITALS: Ht 170.2 cm; Wt 85.0 kg
[~2021-11-25 16:28] MED LIST changes: -LIDOCAINE 2% 100MG/5ML SDV (FOR ANES.) As Ordered ONE; -NS 1,000 ML IV ONE; -propofoL 200 MG/20 ML VIAL As Ordered ONE
[2021-11-25 17:38] VITALS: BP 161/82
[2021-11-25 17:39] LABS: BASO # 0.1 10^3/uL (0.0-0.2); BASO % 0.9 % (0.0-1.0); EOS # 0.1 10^3/uL (0.0-0.5); EOS % 1.8 % (0.0-3.0); HEMATOCRIT 42.1 % (42.0-52.0); HEMOGLOBIN 14.9 g/dl (13.5-17.5); LYMPH # 2.2 10^3/uL (1.5-5.0); LYMPH % 28.6 % (24.0-44.0); MEAN CORPUSCULAR HEMOGLOBIN 31.4 pg (27.0-33.0); MEAN CORPUSCULAR HGB CONC 35.4 g/dl (32.0-36.5); MEAN CORPUSCULAR VOLUME 88.8 fl (80.0-96.0); MONO # 0.5 10^3/uL (0.0-0.8); NEUTROPHILS # 4.8 10^3/uL (1.5-8.5); NEUTROPHILS % 61.3 % (36.0-66.0); PLATELET COUNT, AUTOMATED 189 10^3/uL (150-450); RED BLOOD COUNT 4.74 10^6/uL (4.30-6.10); WHITE BLOOD COUNT 7.8 10^3/uL (4.0-10.0)
[2021-11-25 17:51] LABS: INR 1.04
[2021-11-25 17:52] LABS: PARTIAL THROMBOPLASTIN TIME 28.2 SECONDS (25.9-37.0)
[2021-11-25 18:02] LABS: ALBUMIN 4.4 GM/DL (3.2-5.2); ALT/SGPT 47 U/L (12-78); BILIRUBIN,DIRECT 0.3 MG/DL (0.0-0.2); BILIRUBIN,TOTAL 0.8 MG/DL (0.2-1.0); BLOOD UREA NITROGEN 15 MG/DL (7-18); CALCIUM LEVEL 9.6 MG/DL (8.5-10.1); CARBON DIOXIDE LEVEL 26 MEQ/L (21-32); CHLORIDE LEVEL 104 MEQ/L (98-107); CREATININE FOR GFR 1.23 MG/DL (0.70-1.30); GLOMERULAR FILTRATION RATE > 60.0 (>60); GLUCOSE, FASTING 104 MG/DL (70-100); LIPASE 156 U/L (73-393); POTASSIUM SERUM 3.4 MEQ/L (3.5-5.1); SODIUM LEVEL 138 MEQ/L (136-145); TOTAL PROTEIN 7.5 GM/DL (6.4-8.2)
[2021-11-25 19:15] VITALS: BP 122/76
[2021-11-25] MEDS ORDERED: OMEP-173 PO (19:29)
[2021-11-25] MEDS ORDERED: TEMA30CA PO (19:29)
[2021-11-25] MEDS ORDERED: SERT50TA29 PO (19:29)
[2021-11-25] MEDS ORDERED: TEST1.253 TOP (19:29)
[2021-11-25] MEDS ORDERED: HOME MED LIST COMPLETE! XX SCH (19:30)
[2021-11-25] MEDS ORDERED: POTASSIUM CHLORIDE 10MEQ SR TABLET PO ONE (22:25)
[2021-11-25 22:45] VITALS: BP 123/71
== END 2021-11-25 23:05 | disposition home or self-care (01) ==
LOC: M ED 16:28
DX: R53.1 Weakness (principal); R20.2 Paresthesia of skin; E87.5 Hyperkalemia; E78.5 Hyperlipidemia, unspecified; I10 Essential (primary) hypertension; F43.10 Post-traumatic stress disorder, unspecified; Z79.899 Other long term (current) drug therapy

== ENCOUNTER 2021-11-26 11:47 | Emergency (ER) | payer OTHER ==
[~2021-11-26] VITALS: Ht 170.2 cm; Wt 85.0 kg
[~2021-11-26 11:47] MED LIST changes: +OMEP-173 PO; +SERT50TA29 PO; +TEMA30CA PO; +TEST1.253 TOP
[2021-11-26 13:14] VITALS: BP 158/88
== END 2021-11-26 13:26 | disposition home or self-care (01) ==
LOC: M ED 11:47
DX: M79.604 Pain in right leg (principal); R20.2 Paresthesia of skin; E78.5 Hyperlipidemia, unspecified; I10 Essential (primary) hypertension; Z88.8 Allergy status to other drugs, medicaments and biological substances

== ENCOUNTER → 2021-12-04 | Outpatient (CLI) | payer OTHER | LOC: M SOG 15:57 | PROVIDERS: ATTEND Orthopaedic Surgery | DX: M24.151 Other articular cartilage disorders, right hip (principal) ==

== ENCOUNTER → 2022-01-03 | Outpatient (REF) ==
[2022-01-03 10:51] LABS: BASO # 0.1 10^3/uL (0.0-0.2); EOS # 0.2 10^3/uL (0.0-0.5); EOS % 2.6 % (0.0-3.0); HEMATOCRIT 43.5 % (42.0-52.0); HEMOGLOBIN 15.1 g/dl (13.5-17.5); LYMPH # 1.8 10^3/uL (1.5-5.0); MEAN CORPUSCULAR HEMOGLOBIN 31.3 pg (27.0-33.0); MEAN CORPUSCULAR HGB CONC 34.7 g/dl (32.0-36.5); MEAN CORPUSCULAR VOLUME 90.2 fl (80.0-96.0); MONO # 0.5 10^3/uL (0.0-0.8); MONO % 8.1 % (2.0-8.0); NEUTROPHILS # 3.5 10^3/uL (1.5-8.5); PLATELET COUNT, AUTOMATED 191 10^3/uL (150-450); RED BLOOD COUNT 4.82 10^6/uL (4.30-6.10); WHITE BLOOD COUNT 6.1 10^3/uL (4.0-10.0)
[2022-01-03 10:58] LABS: APPEARANCE, URINE CLEAR (CLEAR); BACTERIA, URINE AUTO NEGATIVE (NEGATIVE); BILIRUBIN, URINE AUTO NEGATIVE (NEGATIVE); BLOOD, URINE BLOOD NEGATIVE (NEGATIVE); COLOR, URINE YELLOW (YELLOW); GLUCOSE, URINE (UA) AUTO NEGATIVE (NEGATIVE); KETONE, URINE AUTO NEGATIVE (NEGATIVE); LEUKOCYTE ESTERASE, URINE AUTO NEGATIVE (NEGATIVE); NITRITE, URINE AUTO NEGATIVE (NEGATIVE); PROTEIN, URINE AUTO NEGATIVE (NEGATIVE); RBC, URINE AUTO 0 /HPF (0-3); SPECIFIC GRAVITY URINE AUTO 1.008 (1.002-1.035); SQUAMOUS EPITHELIAL CELL UR AU 0 /HPF (0-6); UROBILINOGEN, URINE AUTO 0.2 mg/dL (0.0-2.0); WBC, URINE AUTO 0 /HPF (0-3)
[2022-01-03 11:09] LABS: HEMOGLOBIN A1c 5.3 %
[2022-01-03 11:20] LABS: ALBUMIN 4.1 GM/DL (3.2-5.2); BILIRUBIN,TOTAL 0.5 MG/DL (0.2-1.0); CALCIUM LEVEL 9.7 MG/DL (8.5-10.1); CHOLESTEROL RISK RATIO 3.508 (<5); CREATININE FOR GFR 1.43 MG/DL (0.70-1.30); GLOMERULAR FILTRATION RATE 56.4 (>60); POTASSIUM SERUM 4.4 MEQ/L (3.5-5.1); TOTAL PROTEIN 7.5 GM/DL (6.4-8.2)
[2022-01-03 12:03] LABS: TOTAL 25(OH) VITAMIN D 40.8 NG/ML (30.0-100.0)
== END ==
LOC: M LAB 10:19
PROVIDERS: ATTEND Nurse Practitioner Family
DX: Z00.00 Encounter for general adult medical examination without abnormal findings (principal)

== ENCOUNTER → 2022-01-06 | Outpatient (CLI) | payer OTHER | LOC: M RAD 15:00 | PROVIDERS: ATTEND Orthopaedic Surgery | DX: M25.551 Pain in right hip (principal) ==

== ENCOUNTER → 2022-03-06 | Outpatient (CLI) | payer OTHER ==
[~2022-03-06] MED LIST changes: +BUPIVACAINE HCL 0.5% 30ML VIAL As Ordered ONE; +ISOVUE-300 61% 5ML SYRINGE As Ordered ONE; +methylPREDNISolone 80MG/ML SUSP 1ML VIAL (J1040) As Ordered ONE
== END ==
LOC: M RADPRO 14:59
PROVIDERS: ATTEND Orthopaedic Surgery
DX: M25.551 Pain in right hip (principal)
CPT/HCPCS: 20610; 76000; J1040; Q9967

== ENCOUNTER → 2022-07-29 | Outpatient (CLI) | payer OTHER ==
[~2022-07-29] MED LIST changes: -BUPIVACAINE HCL 0.5% 30ML VIAL As Ordered ONE; +ISOVUE-300 61% 50ML VIAL As Ordered ONE; -ISOVUE-300 61% 5ML SYRINGE As Ordered ONE; +LIDOCAINE 1% MDV 20ML VIAL As Ordered ONE; +METR0.7526 TOP; -METR0.7533 TOP; +PROHANCE 279.3MG/ML 5ML VIAL As Ordered ONE; -methylPREDNISolone 80MG/ML SUSP 1ML VIAL (J1040) As Ordered ONE
== END ==
LOC: M RAD 07:03
PROVIDERS: ATTEND Orthopaedic Surgery
DX: M75.102 Unspecified rotator cuff tear or rupture of left shoulder, not specified as traumatic (principal)
CPT/HCPCS: 23350; 73223; 77002; A9576; Q9967

== ENCOUNTER → 2023-03-08 | Outpatient (CLI) | payer OTHER ==
[~2023-03-08] MED LIST changes: -GABA-283 PO; +GABA-284 PO; -ISOVUE-300 61% 50ML VIAL As Ordered ONE; -LIDOCAINE 1% MDV 20ML VIAL As Ordered ONE; -PROHANCE 279.3MG/ML 5ML VIAL As Ordered ONE
[2023-03-08 14:48] LABS: BASO # 0.1 10^3/uL (0.0-0.2); BASO % 0.7 % (0.0-1.0); EOS # 0.1 10^3/uL (0.0-0.5); EOS % 1.2 % (0.0-3.0); HEMATOCRIT 39.5 % (42.0-52.0); HEMOGLOBIN 13.8 g/dl (13.5-17.5); MEAN CORPUSCULAR HEMOGLOBIN 30.9 pg (27.0-33.0); MEAN CORPUSCULAR HGB CONC 34.9 g/dl (32.0-36.5); MEAN CORPUSCULAR VOLUME 88.4 fl (80.0-96.0); MONO # 0.8 10^3/uL (0.0-0.8); MONO % 8.9 % (2.0-8.0); NEUTROPHILS # 5.8 10^3/uL (1.5-8.5); PLATELET COUNT, AUTOMATED 188 10^3/uL (150-450); RED BLOOD COUNT 4.47 10^6/uL (4.30-6.10); WHITE BLOOD COUNT 8.9 10^3/uL (4.0-10.0)
[2023-03-08 15:04] LABS: INR 1.08; PROTHROMBIN TIME 13.7 SECONDS (12.5-14.5)
[2023-03-08 15:10] LABS: ALKALINE PHOSPHATASE 65 U/L (46-116); ALT/SGPT 23 U/L (7.0-40); AST/SGOT 19 U/L (<34); BILIRUBIN,TOTAL 0.6 MG/DL (0.3-1.2); BLOOD UREA NITROGEN 16 MG/DL (9-23); CALCIUM LEVEL 8.8 MG/DL (8.5-10.1); CARBON DIOXIDE LEVEL 26 MMOL/L (20-31); CHLORIDE LEVEL 105 MMOL/L (98-107); CREATININE FOR GFR 1.22 MG/DL (0.70-1.30); GLOMERULAR FILTRATION RATE > 60.0 (>60); GLUCOSE, FASTING 88 MG/DL (60-100); SODIUM LEVEL 137 MMOL/L (136-145); TOTAL PROTEIN 6.8 G/DL (5.7-8.2)
== END ==
LOC: M LAB 14:19
PROVIDERS: ATTEND Family Medicine
DX: Z01.818 Encounter for other preprocedural examination (principal); Z79.01 Long term (current) use of anticoagulants

== ENCOUNTER 2023-04-14 02:17 | Emergency (ER) | payer OTHER ==
[~2023-04-14] VITALS: Ht 170.2 cm; Wt 88.3 kg
[2023-04-14] MEDS ORDERED: ATIV1TAB10 PO (02:24)
[2023-04-14] MEDS ORDERED: TRAZ1TAB11 PO (02:24)
[2023-04-14] MEDS ORDERED: DOXY100T PO (02:24)
[2023-04-14] MEDS ORDERED: diphenhydrAMINE 50MG/ML VIAL IV ONE (05:00)
[2023-04-14] MEDS ORDERED: FAMOTIDINE 20MG/2ML VIAL IVP ONE (05:00)
[2023-04-14] MEDS ORDERED: methylPREDNISolone 125MG 2ML VIAL IV ONE (05:00)
[2023-04-14] MEDS ORDERED: PRED20TA PO (06:13)
[2023-04-14 06:15] VITALS: BP 132/79; TEMP 97.7; O2SAT 98
== END 2023-04-14 06:19 | disposition home or self-care (01) ==
LOC: M ED 02:17
DX: T78.40XA Allergy, unspecified, initial encounter (principal); I10 Essential (primary) hypertension; E78.5 Hyperlipidemia, unspecified; F41.1 Generalized anxiety disorder; Z79.899 Other long term (current) drug therapy
CPT/HCPCS: 99283; J1200; J2930

== ENCOUNTER → 2023-08-24 | Outpatient (CLI) | payer OTHER ==
[~2023-08-24] MED LIST changes: +DOXY100T PO; +PRED20TA PO; +TRAZ1TAB11 PO
== END ==
LOC: M PLAIMG 08:06
PROVIDERS: ATTEND Internal Medicine Cardiovascular Disease
DX: I11.9 Hypertensive heart disease without heart failure (principal); R94.31 Abnormal electrocardiogram [ECG] [EKG]

== ENCOUNTER → 2024-04-08 | Outpatient (REF) | payer OTHER ==
[2024-04-08 11:32] LABS: APPEARANCE, URINE CLEAR (CLEAR); BACTERIA, URINE AUTO NEGATIVE (NEGATIVE); BILIRUBIN, URINE AUTO NEGATIVE (NEGATIVE); BLOOD, URINE BLOOD NEGATIVE (NEGATIVE); COLOR, URINE YELLOW (YELLOW); GLUCOSE, URINE (UA) AUTO NEGATIVE (NEGATIVE); KETONE, URINE AUTO NEGATIVE (NEGATIVE); LEUKOCYTE ESTERASE, URINE AUTO NEGATIVE (NEGATIVE); NITRITE, URINE AUTO NEGATIVE (NEGATIVE); PROTEIN, URINE AUTO NEGATIVE (NEGATIVE); RBC, URINE AUTO 0 /HPF (0-3); SPECIFIC GRAVITY URINE AUTO 1.015 (1.002-1.035); SQUAMOUS EPITHELIAL CELL UR AU 0 /HPF (0-6); UROBILINOGEN, URINE AUTO 0.2 mg/dL (0.0-2.0); WBC, URINE AUTO 0 /HPF (0-3)
[2024-04-08 11:42] LABS: BASO # 0.1 10^3/uL (0.0-0.2); BASO % 1.3 % (0.0-1.0); EOS # 0.1 10^3/uL (0.0-0.5); EOS % 1.7 % (0.0-3.0); HEMATOCRIT 41.1 % (42.0-52.0); HEMOGLOBIN 14.1 g/dl (13.5-17.5); LYMPH # 1.7 10^3/uL (1.5-5.0); LYMPH % 36.7 % (24.0-44.0); MEAN CORPUSCULAR HEMOGLOBIN 30.9 pg (27.0-33.0); MEAN CORPUSCULAR HGB CONC 34.3 g/dl (32.0-36.5); MEAN CORPUSCULAR VOLUME 90.1 fl (80.0-96.0); MONO # 0.5 10^3/uL (0.0-0.8); MONO % 10.2 % (2.0-8.0); NEUTROPHILS # 2.4 10^3/uL (1.5-8.5); NEUTROPHILS % 49.9 % (36.0-66.0); PLATELET COUNT, AUTOMATED 190 10^3/uL (150-450); RED BLOOD COUNT 4.56 10^6/uL (4.30-6.10); WHITE BLOOD COUNT 4.7 10^3/uL (4.0-10.0)
[2024-04-08 11:43] LABS: ALKALINE PHOSPHATASE 51 U/L (46-116); ALT/SGPT 26 U/L (7.0-40); AST/SGOT 16 U/L (<34); BILIRUBIN,TOTAL 0.5 MG/DL (0.3-1.2); BLOOD UREA NITROGEN 16 MG/DL (9-23); CALCIUM LEVEL 9.3 MG/DL (8.5-10.1); CARBON DIOXIDE LEVEL 26 MMOL/L (20-31); CHLORIDE LEVEL 107 MMOL/L (98-107); CHOLESTEROL LEVEL 157 MG/DL (<200); CHOLESTEROL RISK RATIO 2.89 (<5); CREATININE FOR GFR 1.32 MG/DL (0.70-1.30); GLOMERULAR FILTRATION RATE > 60.0 (>60); GLUCOSE, FASTING 94 MG/DL (60-100); HDL CHOLESTEROL 54.2 MG/DL (>40); LDL CHOLESTEROL 90.4 MG/DL (<100); NON-HDL-C 102.8 MG/DL; POTASSIUM SERUM 4.5 MMOL/L (3.5-5.1); SODIUM LEVEL 138 MMOL/L (136-145); TOTAL PROTEIN 6.6 G/DL (5.7-8.2); TRIGLYCERIDES LEVEL 62 MG/DL (<150)
[2024-04-08 11:58] LABS: HEMOGLOBIN A1c 5.3 % (4.0-6.0)
[2024-04-08 12:02] LABS: CREATININE, URINE 103.6 MG/DL; MALB URINE SIEMENS < 3.0 MG/L; MAU/CREAT RATIO 2.8 MCG/MG (0.0-30.0)
[2024-04-11 09:23] LABS: INSULIN TOTAL2 6.5 uIU/mL (<=18.4)
== END ==
LOC: M SFHCLERA 07:36
PROVIDERS: ATTEND Family Medicine
DX: R73.01 Impaired fasting glucose (principal); R93.1 Abnormal findings on diagnostic imaging of heart and coronary circulation; Z82.49 Family history of ischemic heart disease and other diseases of the circulatory system; N18.2 Chronic kidney disease, stage 2 (mild); R74.01 Elevation of levels of liver transaminase levels

== ENCOUNTER → 2024-08-18 | Outpatient (CLI) | payer OTHER | LOC: M RAD 07:17 | PROVIDERS: ATTEND Registered Nurse | DX: K76.0 Fatty (change of) liver, not elsewhere classified (principal) ==

== ENCOUNTER 2024-08-19 10:43 | Emergency (ER) | payer OTHER ==
[~2024-08-19] VITALS: Ht 170.2 cm; Wt 80.0 kg
[2024-08-19 11:31] LABS: BASO # 0.1 10^3/uL (0.0-0.2); BASO % 1.2 % (0.0-1.0); EOS # 0.1 10^3/uL (0.0-0.5); EOS % 1.2 % (0.0-3.0); HEMATOCRIT 45.6 % (42.0-52.0); HEMOGLOBIN 15.8 g/dl (13.5-17.5); LYMPH # 1.8 10^3/uL (1.5-5.0); LYMPH % 31.9 % (24.0-44.0); MEAN CORPUSCULAR HEMOGLOBIN 31.2 pg (27.0-33.0); MEAN CORPUSCULAR HGB CONC 34.6 g/dl (32.0-36.5); MEAN CORPUSCULAR VOLUME 90.1 fl (80.0-96.0); MONO # 0.5 10^3/uL (0.0-0.8); MONO % 7.9 % (2.0-8.0); NEUTROPHILS # 3.3 10^3/uL (1.5-8.5); NEUTROPHILS % 57.4 % (36.0-66.0); RED BLOOD COUNT 5.06 10^6/uL (4.30-6.10); WHITE BLOOD COUNT 5.7 10^3/uL (4.0-10.0)
[2024-08-19] MEDS: NS (Normal Saline) 0.9% 1,000 ML IV ONE (11:40)
[2024-08-19 11:48] LABS: THYROID STIMULATING HORMONE 2.555 uIU/ML (0.55-4.78)
[2024-08-19 11:49] LABS: INR 0.96; PARTIAL THROMBOPLASTIN TIME 26.6 SECONDS (24.8-34.2); PROTHROMBIN TIME 13.1 SECONDS (12.5-14.5)
[2024-08-19 11:51] LABS: BLOOD UREA NITROGEN 20 MG/DL (9-23); CALCIUM LEVEL 9.4 MG/DL (8.5-10.1); CARBON DIOXIDE LEVEL 27 MMOL/L (20-31); CHLORIDE LEVEL 102 MMOL/L (98-107); CREATININE FOR GFR 1.18 MG/DL (0.70-1.30); GLOMERULAR FILTRATION RATE > 60.0 (>56); GLUCOSE, FASTING 108 MG/DL (60-100); POTASSIUM SERUM 5.1 MMOL/L (3.5-5.1); SODIUM LEVEL 139 MMOL/L (136-145)
[2024-08-19 11:52] LABS: ALBUMIN 4.5 G/DL (3.2-5.2); BILIRUBIN,DIRECT 0.2 MG/DL (<0.4); BILIRUBIN,TOTAL 0.8 MG/DL (0.3-1.2); CK-MB VALUE MASS 2.4 NG/ML (<3.6); FREE T4 1.18 NG/DL (0.89-1.76); MB/CK RELATIVE INDEX 1.7 (< OR =4); TOTAL PROTEIN 7.8 G/DL (5.7-8.2)
[2024-08-19 12:47] LABS: CK-MB VALUE MASS 1.5 NG/ML (<3.6)
[2024-08-19 12:57] LABS: MB/CK RELATIVE INDEX 1.3 (< OR =4)
[2024-08-19 14:47] VITALS: BP 107/62; TEMP 97.8; O2SAT 99
== END 2024-08-19 15:36 | disposition home or self-care (01) ==
LOC: EDBD 10:43 → M ED 10:43
DX: R55 Syncope and collapse (principal); R00.1 Bradycardia, unspecified; I10 Essential (primary) hypertension; K21.9 Gastro-esophageal reflux disease without esophagitis; G47.33 Obstructive sleep apnea (adult) (pediatric); F41.9 Anxiety disorder, unspecified; F10.10 Alcohol abuse, uncomplicated; Z79.899 Other long term (current) drug therapy; Z79.52 Long term (current) use of systemic steroids; Z79.2 Long term (current) use of antibiotics

== ENCOUNTER 2024-10-10 18:46 | Emergency (ER) | payer OTHER ==
[~2024-10-10] VITALS: Ht 170.2 cm; Wt 86.1 kg
[2024-10-10 21:56] LABS: BASO # 0.1 10^3/uL (0.0-0.2); BASO % 0.4 % (0.0-1.0); EOS % 0.2 % (0.0-3.0); HEMATOCRIT 42.5 % (42.0-52.0); HEMOGLOBIN 14.5 g/dl (13.5-17.5); LYMPH # 1.1 10^3/uL (1.5-5.0); LYMPH % 7.7 % (24.0-44.0); MEAN CORPUSCULAR HEMOGLOBIN 31.1 pg (27.0-33.0); MEAN CORPUSCULAR HGB CONC 34.1 g/dl (32.0-36.5); MEAN CORPUSCULAR VOLUME 91.2 fl (80.0-96.0); MONO # 0.9 10^3/uL (0.0-0.8); MONO % 6.3 % (2.0-8.0); NEUTROPHILS # 11.6 10^3/uL (1.5-8.5); NEUTROPHILS % 85.2 % (36.0-66.0); PLATELET COUNT, AUTOMATED 177 10^3/uL (150-450); RED BLOOD COUNT 4.66 10^6/uL (4.30-6.10); WHITE BLOOD COUNT 13.6 10^3/uL (4.0-10.0)
[2024-10-10 22:24] LABS: LIPASE 63 U/L (12-53)
[2024-10-10 22:25] LABS: CPK CREATINE PHOSPHOKINASE 159 U/L (46-171); MB/CK RELATIVE INDEX 1.25 (< OR =4)
[2024-10-10 22:26] LABS: ALBUMIN 4.1 G/DL (3.2-5.2); ALKALINE PHOSPHATASE 53 U/L (40-129); ALT/SGPT 30 U/L (7.0-40); AST/SGOT 23 U/L (<34); BILIRUBIN,DIRECT 0.2 MG/DL (<0.4); BILIRUBIN,TOTAL 0.7 MG/DL (0.3-1.2); BLOOD UREA NITROGEN 15 MG/DL (9-23); CALCIUM LEVEL 10.4 MG/DL (8.5-10.1); CARBON DIOXIDE LEVEL 29 MMOL/L (20-31); CHLORIDE LEVEL 105 MMOL/L (98-107); CREATININE FOR GFR 1.23 MG/DL (0.70-1.30); GLOMERULAR FILTRATION RATE > 60.0 (>56); GLUCOSE, FASTING 96 MG/DL (60-100); POTASSIUM SERUM 4.5 MMOL/L (3.5-5.1); SODIUM LEVEL 141 MMOL/L (136-145)
[2024-10-10] MEDS: ACETAMINOPHEN 500 MG TAB PO ONE (22:41)
[2024-10-11] MEDS ORDERED: ISOVUE-370 76% 100ML VIAL As Ordered ONE (05:39)
[2024-10-11] MEDS: KETOROLAC 30 MG/ML 1ML VIAL IV ONE (05:44)
[2024-10-11 06:51] LABS: CK-MB VALUE MASS 1.1 NG/ML (<3.6)
[2024-10-11 06:53] LABS: MB/CK RELATIVE INDEX 0.81 (< OR =4)
[2024-10-11] MEDS ORDERED: CARA1TAB6 PO (08:31)
[2024-10-11] MEDS ORDERED: OMEP10CASR PO (08:31)
[2024-10-11 08:34] VITALS: BP 117/69; TEMP 97.2; O2SAT 98
== END 2024-10-11 08:39 | disposition home or self-care (01) ==
LOC: M ED 18:46
DX: R10.13 Epigastric pain (principal); R00.1 Bradycardia, unspecified; I10 Essential (primary) hypertension; K21.9 Gastro-esophageal reflux disease without esophagitis; F41.9 Anxiety disorder, unspecified; F43.10 Post-traumatic stress disorder, unspecified; Z79.2 Long term (current) use of antibiotics; Z79.52 Long term (current) use of systemic steroids; Z79.899 Other long term (current) drug therapy
CPT/HCPCS: 71275; 74177; 80048; 80076; 82550; 82553; 83690; 84484; 85025; 93005; 96374; 99284; J1885; Q9967

== ENCOUNTER → 2025-04-14 | Outpatient (CLI) | payer OTHER ==
[~2025-04-14] MED LIST changes: -ANDR1.62 TOP; +CARA1TAB6 PO; +OMEP10CASR PO; +TEST75GE10 TOP
[2025-04-14 08:46] LABS: BASO # 0.1 10^3/uL (0.0-0.2); BASO % 0.9 % (0.0-1.0); EOS # 0.1 10^3/uL (0.0-0.5); EOS % 1.8 % (0.0-3.0); LYMPH # 1.8 10^3/uL (1.5-5.0); LYMPH % 31.6 % (24.0-44.0); MONO # 0.5 10^3/uL (0.0-0.8); MONO % 8.3 % (2.0-8.0); NEUTROPHILS # 3.2 10^3/uL (1.5-8.5); NEUTROPHILS % 57.0 % (36.0-66.0); PLATELET COUNT, AUTOMATED 210 10^3/uL (150-450)
[2025-04-14 09:19] LABS: ALT/SGPT 23.0 U/L (7.0-40); AST/SGOT 22.0 U/L (<34); CALCIUM LEVEL 9.4 MG/DL (8.5-10.1); CARBON DIOXIDE LEVEL 27.0 MMOL/L (20-31); CHLORIDE LEVEL 106.0 MMOL/L (98-107); CHOLESTEROL LEVEL 188.0 MG/DL (<200); CHOLESTEROL RISK RATIO 3.0 (<5); CREATININE FOR GFR 1.22 MG/DL (0.70-1.30); GLOMERULAR FILTRATION RATE 72.2 (>56); LDL CHOLESTEROL 112.1 MG/DL (<100); NON-HDL-C 125.5 MG/DL; POTASSIUM SERUM 5.0 MMOL/L (3.5-5.1); SODIUM LEVEL 141.0 MMOL/L (136-145); TRIGLYCERIDES LEVEL 67.0 MG/DL (<150)
[2025-04-14 09:24] LABS: ESTIMATED AVERAGE GLUCOSE 108.0 MG/DL (60-110)
[2025-04-19 15:31] LABS: INSULIN FREE 5.0 uIU/mL (1.5-14.9); INSULIN TOTAL2 7.2 uIU/mL
== END ==
LOC: M LAB 07:36
PROVIDERS: ATTEND Family Medicine
DX: Z00.00 Encounter for general adult medical examination without abnormal findings (principal)